=== PATIENT | female | born 1965 | race Caucasian/White ===

== ENCOUNTER 2023-01-25 10:20 | Outpatient (OUT) | payer BC, SELFPAY ==
[2023-01-25 10:42] LABS: Basophils Absolute Auto 0.1 10^3/uL (0.0-0.1); Basophils Percent Auto 0.9 % (0.2-2.0); Eosinophils Absolute Auto 0.1 10^3/uL (0.0-0.7); Eosinophils Percent Auto 2.4 % (0.9-7.0); Hematocrit 46.6 % (36.0-48.0); Hemoglobin 15.9 g/dL (12.0-16.0); Immature Granulocytes Abs Auto 0.01 10^3/uL (0.00-0.03); Immature Granulocytes Pct Auto 0.2 % (0.0-0.5); Lymphocytes Absolute Auto 2.3 10^3/uL (1.2-3.8); Lymphocytes Percent Auto 40.5 % (20.5-60.0); Mean Corpuscular HGB Conc 34.1 g/dL (29.9-35.2); Mean Corpuscular Hemoglobin 30.8 pg (26.7-34.0); Mean Corpuscular Volume 90.1 fL (81.0-99.0); Mean Platelet Volume 9.6 fL (9.5-13.5); Monocytes Absolute Auto 0.5 10^3/uL (0.3-0.8); Monocytes Percent Auto 8.3 % (1.7-12.0); Neutrophils Absolute Auto 2.8 10^3/uL (1.4-6.5); Neutrophils Percent Auto 47.7 % (43.0-75.0); Platelet Count 279 10^3/uL (150-450); Red Blood Count 5.17 10^6/uL (4.20-5.40); Red Cell Distribution Width 12.2 % (11.0-15.0); White Blood Count 5.8 10^3/uL (4.0-11.0)
[2023-01-25 11:22] LABS: Anion Gap 9.9; BUN Creatinine Ratio 12.3; Calcium 8.9 mg/dL (8.5-10.1); Chloride 104 mmol/L (98-107); Chol HDL Ratio 6.7; Cholesterol 253 mg/dL (<=200); Estimated GFR (African America >60 (>=60); Estimated GFR (Non-African Ame >60 (>=60); Glucose 102 mg/dL (74-106); HDL Cholesterol 38 mg/dL (40-60); Potassium 3.9 mmol/L (3.5-5.1); Sodium 141 mmol/L (136-145); Triglycerides 226 mg/dL (<=150); VLDL CHOLESTEROL 45.2 mg/dL
== END 2023-01-25 10:21 | disposition home or self-care (01) ==
PROVIDERS: PCP Family Medicine; Visit Provider Family Medicine
DX: Z00.00 Encounter for general adult medical examination without abnormal findings (principal); I10 Essential (primary) hypertension
CPT/HCPCS: 36415; 80048; 80061; 85025

== ENCOUNTER 2024-03-04 08:00 | Outpatient (OUT) | payer BC, SELFPAY ==
--- NOTE | 2024-03-04 07:40 | VEINCLINIC_ITS ---
Vital Signs 03/04/24 08:41 Height 5 ft 7 in Weight 86.183 kg BMI 29.8 BP 138/88 BP Location Left Brachial BP Position Supine BP Cuff Size Adult BP Source Manual Cuff Respiration 16 Pulse 56 L Pulse Source Monitor Pulse Oximetry (%) 94 L Oxygen Delivery Method Room Air Comment The patient's blood pressure is elevated. Varicose Veins Patient in this day for comprehensive evaluation for painful bilateral varicose veins. Patient reports numbness, pain and swelling for about 5 years. She stands 10 hours a day at work. She is active daily. She has worn compression stockings for 2 years. Ariel Webb MD personally performed the services described in this documentation, as scribed by Annia Olson RN in my presence and it is both accurate and complete. Annia Webb RN, am scribing for, and in the presence of, Dr. Ariel Mota and in the presence of the patient. thigh: bilateral, knee: bilateral, calf: bilateral, ankle: bilateral and mcfarland: bilateral aching, cramping, intermittent and tender 8 5 years Worsened in recent months: Yes standing and walking elevating extremities Reports fatigue, heaviness, limb pain and leg edema History of lower extremity trauma: No Superficial thrombophlebitis: No Family history of varicose veins: yes Has patient had previous lower extremity venous surgery: No Patient has previously received the following treatment(s) for lower extremity varicose veins: Reports none Does patient have a history of : no Does patient intend to have future pregnancies: no Has patient had lower extremity venous scan with relux testing: Yes Support hose used: Yes Problems walking or doing physical activity: Yes How does it affect you: Unable to walk long distances, effects work requirements standing Do you walk much: Yes Do you stand much: Yes Review of Systems ROS Narrative Ariel Webb MD personally performed the services described in this documentation, as scribed by Annia Olson RN in my presence and it is both accurate and complete. Annia Webb RN, am scribing for, and in the presence of, Dr. Ariel Mota and in the presence of the patient. Status of ROS 10 or more systems reviewed and unremark able except as noted in history and below Cardiovascular Reports: edema and swelling of feet/ankles Musculoskeletal Reports: extremity pain, extremity swelling, joint pain, joint swelling and muscle cramps Integumentary/Breast Reports: itching, skin pain, skin tenderness and skin swelling [facility] Medical History (Updated 03/04/24 @ 08:33 by Annia Olson, RN) FH: cholecystectomy ?Z83.79 - Family history of other diseases of the digestive system (ICD-10) Depression ?F32.A - Depression, unspecified (ICD-10) Hypercholesteremia ?E78.00 - Pure hypercholesterolemia, unspecified (ICD-10) Hypertension ?I10 - Essential (primary) hypertension (ICD-10) Pain due to varicose veins of both lower extremities ?I83.813 - Varicose veins of bilateral lower extremities with pain (ICD-10) Surgical History (Updated 03/04/24 @ 08:33 by Annia Olson, ANDERS) History of tonsillectomy ?Z90.89 - Acquired absence of other organs (ICD-10) History of appendectomy ?Z90.49 - Acquired absence of other specified parts of digestive tract (ICD- 10) Family History (Updated 03/04/24 @ 08:30 by Annia Olson, RN) Mother Family history of CHF (congestive heart failure) Family history of cancer Family history of hypertension Family history of myocardial infarction Family history of stroke Uncle Family history of CHF (congestive heart failure) Father Family history of cancer Family history of hypertension Sister Family history of diabetes mellitus Family history of hypertension Social History (Updated 03/04/24 @ 08:31 by Annia Olson, RN) Within the past year, how often did you have a drink containing alcohol: never Score interpretation: A score less than 3 is consistent with normal alcohol consumption. Smoking status: Never smoker Non-prescribed substance use: former substance user Meds Home Medications and Allergies Home Medications ?Medication ?Instructions ?Recorded ?Confirmed ?Type duloxetine 60 mg capsule,delayed 60 mg PO DAILY 03/04/24 03/04/24 History release (Cymbalta) gabapentin 600 mg tablet 600 mg PO TID 03/04/24 03/04/24 History multivit with min-folic 1 tab PO DAILY 03/04/24 03/04/24 History acid-lutein 400 mcg-250 mcg chewable tablet (Centrum Silver) nortriptyline 10 mg capsule 10 mg PO DAILY 03/04/24 03/04/24 History (Pamelor) rosuvastatin 20 mg tablet 20 mg PO DAILY 03/04/24 03/04/24 History Allergies Allergy/AdvReac Type Severity Reaction Status Date / Time No Known Drug Allergies Allergy Unverified 03/04/24 08:34 Exam Narrative Exam Narrative: Ariel Webb MD personally performed the services described in this documentation, as scribed by Annia Olson RN in my presence and it is both accurate and complete. IAnnia RN, am scribing for, and in the presence of, Dr. Ariel Mota and in the presence of the patient. Constitutional Documenting provider has reviewed patient's vital signs: yes Common normals: oriented x3 Nutritional appearance: overweight Lymph Lymphatic: no lymphedema noted Cardio Peripheral pulses: posterior tibial pulses present and dorsalis pedis pulses present Extremity General: calf tenderness, edema and other findings Right lower extremity: lower leg Right lower leg: inspection and palpation Left lower extremity: lower leg Left lower leg: inspection and palpation Neuro Common normals: oriented x3 Assessment and Plan Assessment and Plan (1) Pain due to varicose veins of both lower extremities: Plan Explained vein anatomy and physiology to patient. Explained the development of varicose veins to patient.? Explained varicose vein treatments to patient, including laser ablation, microfoam chemical ablation (Varithena), injection sclerotherapy and microphlebectomy.? Explained potential risks and benefits of varicose vein treatments.? Patient verbalizes understanding and wants to pursue varicose vein treatment.? Dr. Mota examines patient and reviews results of bilateral leg reflux u/s.? Patient and Dr. Mota creates a plan of care.? Patient also agrees to purchase bilateral thigh high compression stockings and wear them as educated.? Patient also educated on exercise and rest elevation of bilateral legs. Ariel Webb MD personally performed the services described in this documentation, as scribed by Annia Olson RN in my presence and it is both accurate and complete. Annia Webb RN, am scribing for, and in the presence of, Dr. Ariel Mota and in the presence of the patient.
--- NOTE | 2024-03-04 07:43 | W.VEIN ---
Discharge Plan Discharge Disposition: Home, Self-Care Outpatient Diagnostics: VC Endovenous Ablation 1VeinLT (Routine) Timeframe: 2 Months Facility: [facility] - Location: Vein Center Ordered By: Ariel Mota Follow Up Appointments: Will call patient to schedule when insurance approved. Print Language: Hebrew Discharge Date/Time: 03/04/24 09:45
--- NOTE | 2024-03-04 08:02 | VEIN_ITS ---
Patient Name: WILFRED CORBIN MR#: [id number] : 1965 Exam Date: 03/04/2024 Ordering Doctor: DR Shira Arias M.D. RADIOLOGY REPORT PROCEDURE: [facility] - OFFICE VISIT INITIAL COMPARISON: None. PROGRESS NOTES: [age] year old female who presents with a 5 year history of lower extremity pain, numbness, swelling, aching, cramping. The patient's left leg symptoms are worse than the right. There has been a progression of symptoms over time. This increases with prolonged leg dependency. The patient describes an improvement with rest, elevation and compression stockings. The patient denies any signs and symptoms to suggest arterial ischemia. The patient describes a family history of hypertension, cancer, diabetes. The patient has drinking and smoking history of : None. Patient has a past medical history significant for hypertension, varicose veins. The patient denies a history of deep venous thrombus or pulmonary embolus. See separate history and physical for medication list. No prior treatment for varicose or spider veins. Current use of compression stockings. After review of nurse notes, history and physical exam I discussed at length the pathophysiology of venous hypertension and possible treatments, therapies and strategies available. We discussed at length the importance of elevating the lower extremities above the level of the heart, increased physical activity and compression stocking use. Ultrasound venous reflux study performed today was discussed at length with the patient. The report demonstrates abnormally dilated incompetent great saphenous veins bilaterally with associated branch saphenous varicosities. PHYSICAL EXAM: The right leg demonstrates scattered varicosities, numerous spider veins, no ulceration, mild edema, no skin discoloration. The left leg demonstrates scattered varicosities, numerous spider veins, no ulceration, mild edema, no skin discoloration. Both thighs, legs and feet were symmetrically warm to the touch. Good posterior tibial and dorsalis pedis pulses were present bilaterally. VEIN/ Facility [facility] Comprehensive IMPRESSION: 1. Bilateral lower extremity venous insufficiency 2. Bilateral lower extremity varicose veins 3. Bilateral lower extremity subcutaneous edema 4. No flow significant arterial disease 5. CEAP: C3, AP, , [place] PLAN: 1. Continued use of compression stockings 2. Elevated legs and increased physical activity symptomatic relief 3. Endovenous laser ablation left great saphenous and right great saphenous veins. 4. Microfoam chemical ablation of bilateral incompetent branch saphenous varicosities. 5. Bilateral lower extremity sclerotherapy. Nurse notes, history and physical were reviewed and confirmed, see attached forms. The nurse was present throughout the physical exam and consultation Dictated by: Ariel Mota M.D. on 03/04/2024 at 15:29 Approved by: Ariel oMta M.D. on 03/04/2024 at 15:36
--- NOTE | 2024-03-04 08:03 | VEIN_ITS ---
Patient Name: WILFRED CORBIN MR#: [id number] : 1965 Exam Date: 03/04/2024 Ordering Doctor: DR Shira Arias M.D. RADIOLOGY REPORT PROCEDURE: VC EXT VENOUS REFLUX SHERRI LMTD COMPARISON: None. INDICATIONS: I83.813 Bilateral painful varicose veins TECHNIQUE: Duplex imaging of the lower extremity to assess the deep and superficial venous system for the presence of deep or superficial venous incompetence and to document the location and severity of disease. The study includes evaluation of the great saphenous vein (GSV), anterior accessory saphenous vein (AASV) and small saphenous vein (SSV). Patient scanned in reverse Trendelenburg and standing. FINDINGS: RIGHT LOWER EXTREMITY: Saphenofemoral Junction Reflux: Yes 7.2mm 1.5 sec GSV: Diam (mm) Reflux/ Time (sec) Proximal Thigh 6.2 Yes 1.3 Mid Thigh 4.6 Yes 2.4 Distal Thigh 4.0 Yes 3.7 Prox Calf 3.1 No Mid Calf 2.6 No Saphenopopliteal Junction Reflux: 2.3mm No SSV: Proximal Calf 1.6 No Mid Calf 2.1 No AASV: Not present Proximal Thigh Mid Thigh Distal Thigh Thrombi: No acute or chronic thrombus visualized Compressibility: Normal Flow: Normal Preforator: Dist/med calf 1.7mm with 0s reflux. Tech Note: Incompetent GSV. GSV is extrafascial from dist/med thigh to prox/calf. Patent varicose vein mid/med thigh 3.0mm with 3.4s reflux. Patent varicose mid/med thigh 2.0mm with 0s reflux. Patent varicose vein 3.5mm with 3.7s reflux. LEFT LOWER EXTREMITY: Saphenofemoral Junction Reflux: Yes 8.5 mm 2.7 sec GSV: Diam (mm) Reflux/Time (sec) Proximal Thigh 9.2 Yes 3.0 Mid Thigh 6.1 Yes 3.0 Distal Thigh 7.2 Yes 3.5 Prox Calf 3.4 Yes 3.2 Mid Calf 2.0 No Saphenopopliteal Junction Relux: 1.7 mm No SSV: Proximal Calf 1.5 No Mid Calf 1.2 No AASV: Not present Proximal Thigh Mid Thigh Distal Thigh Thrombi: No acute or chronic thrombus visualized Compressibility: Normal Flow: Normal Route Manager: Dist/med calf 2.7mm with 0s reflux. Tech Note: Incompetent GSV. GSV is extrafascial from dist/med thigh to prox/med calf. Patent varicose vein mid/med thigh 5.0mm with 3.5s reflux. Patent varicose vein 5.4mm with 3.5s reflux. Patent varicose vein 4.0mm with 3.6s reflux. CONCLUSION: 1. Abnormally dilated and incompetent great saphenous veins bilaterally with associated branch saphenous varicosities. Dictated by: Ariel Mota M.D. on 03/04/2024 at 09:33 Approved by: Ariel Mota M.D. on 03/04/2024 at 09:49
[2024-03-04 08:41] VITALS: BP 138/88; PULSE 56; O2SAT 94; BMI 29.8
== END 2024-03-04 09:45 | disposition home or self-care (01) ==
LOC: VC 08:01
PROVIDERS: PCP Family Medicine; Visit Provider Family Medicine
DX: I83.813 Varicose veins of bilateral lower extremities with pain (principal)
CPT/HCPCS: 93970; G0463

== ENCOUNTER 2024-03-19 07:55 | Outpatient (OUT) | payer BC, SELFPAY ==
--- NOTE | 2024-03-18 09:45 | VEINCLINIC_ITS ---
Vital Signs 03/19/24 08:35 BP 122/60 BP Location Left Brachial BP Position Sitting BP Cuff Size Adult BP Source Manual Cuff Respiration 16 Pulse 65 Pulse Source Monitor Pulse Oximetry (%) 98 Oxygen Delivery Method Room Air Comment The patient's blood pressure is elevated. Varicose Veins Patient in this day for EVLT of left GSV Ariel Webb MD personally performed the services described in this documentation, as scribed by Ricki Horowitz RN in my presence and it is both accurate and complete. Ricki Webb RN, am scribing for, and in the presence of, Dr. Ariel Mota and in the presence of the patient. thigh: bilateral, knee: bilateral, calf: bilateral, ankle: bilateral and mcfarland: bilateral aching, cramping, intermittent and tender 8 5 years Worsened in recent months: Yes standing and walking elevating extremities Reports fatigue, heaviness, limb pain and leg edema History of lower extremity trauma: No Superficial thrombophlebitis: No Family history of varicose veins: yes Has patient had previous lower extremity venous surgery: No Patient has previously received the following treatment(s) for lower extremity varicose veins: Reports none Does patient have a history of : no Does patient intend to have future pregnancies: no Has patient had lower extremity venous scan with relux testing: Yes Support hose used: Yes Problems walking or doing physical activity: Yes How does it affect you: Unable to walk long distances, effects work requirements standing Do you walk much: Yes Do you stand much: Yes Review of Systems ROS Narrative Ariel Webb MD personally performed the services described in this documentation, as scribed by Ricki Horowitz RN in my presence and it is both accurate and complete. Ricki Webb RN, am scribing for, and in the presence of, Dr. Ariel Mota and in the presence of the patient. Status of ROS 10 or more systems reviewed and unremark able except as noted in history and below Cardiovascular Reports: edema and swelling of feet/ankles Musculoskeletal Reports: extremity pain, extremity swelling, joint pain, joint swelling and muscle cramps Integumentary/Breast Reports: itching, skin pain, skin tenderness and skin swelling [facility] Medical History (Updated 03/04/24 @ 08:33 by Annia Olson RN) FH: cholecystectomy ?Z83.79 - Family history of other diseases of the digestive system (ICD-10) Depression ?F32.A - Depression, unspecified (ICD-10) Hypercholesteremia ?E78.00 - Pure hypercholesterolemia, unspecified (ICD-10) Hypertension ?I10 - Essential (primary) hypertension (ICD-10) Pain due to varicose veins of both lower extremities ?I83.813 - Varicose veins of bilateral lower extremities with pain (ICD-10) Surgical History (Updated 03/19/24 @ 09:33 by Ricki Horowitz) Status post laser ablation of incompetent vein ?Z98.890 - Other specified postprocedural states (ICD-10) History of tonsillectomy ?Z90.89 - Acquired absence of other organs (ICD-10) History of appendectomy ?Z90.49 - Acquired absence of other specified parts of digestive tract (ICD- 10) Family History (Updated 03/04/24 @ 08:30 by Annia Olson, ANDERS) Mother Family history of CHF (congestive heart failure) Family history of cancer Family history of hypertension Family history of myocardial infarction Family history of stroke Uncle Family history of CHF (congestive heart failure) Father Family history of cancer Family history of hypertension Sister Family history of diabetes mellitus Family history of hypertension Social History (Updated 03/04/24 @ 08:31 by Annia Olson, ANDERS) Within the past year, how often did you have a drink containing alcohol: never Score interpretation: A score less than 3 is consistent with normal alcohol consumption. Smoking status: Never smoker Non-prescribed substance use: former substance user Meds Home Medications and Allergies Home Medications ?Medication ?Instructions ?Recorded ?Confirmed ?Type duloxetine 60 mg capsule,delayed 60 mg PO DAILY 03/04/24 03/04/24 History release (Cymbalta) gabapentin 600 mg tablet 600 mg PO TID 03/04/24 03/04/24 History multivit with min-folic 1 tab PO DAILY 03/04/24 03/04/24 History acid-lutein 400 mcg-250 mcg chewable tablet (Centrum Silver) nortriptyline 10 mg capsule 10 mg PO DAILY 03/04/24 03/04/24 History (Pamelor) rosuvastatin 20 mg tablet 20 mg PO DAILY 03/04/24 03/04/24 History Allergies Allergy/AdvReac Type Severity Reaction Status Date / Time No Known Drug Allergies Allergy Unverified 03/04/24 08:34 Exam Narrative Exam Narrative: Ariel Webb MD personally performed the services described in this documentation, as scribed by Ricki Horowitz RN in my presence and it is both accurate and complete. Ricki Webb RN, am scribing for, and in the presence of, Dr. Ariel Mota and in the presence of the patient. Constitutional Documenting provider has reviewed patient's vital signs: yes Common normals: oriented x3 Nutritional appearance: overweight Lymph Lymphatic: no lymphedema noted Cardio Peripheral pulses: posterior tibial pulses present and dorsalis pedis pulses present Extremity General: calf tenderness, edema and other findings Right lower extremity: lower leg Right lower leg: inspection and palpation Left lower extremity: lower leg Left lower leg: inspection and palpation Neuro Common normals: oriented x3 Assessment and Plan Assessment and Plan (1) Pain due to varicose veins of both lower extremities: Plan f/u evaluation with physician along with left leg limited u/s Ariel Webb MD personally performed the services described in this documentation, as scribed by Ricki Horowitz RN in my presence and it is both accurate and complete. Ricki Webb RN, am scribing for, and in the presence of, Dr. Ariel Mota and in the presence of the patient. Procedures Procedure Instructions Procedures Plan of care: Risks and benefits of the procedure were discussed at length and informed written consent was obtained.? Time-out completed for verification of correct patient, procedure and site.? Staff present during time-out: Ricki Horowitz RN,? Ariel Mota MD, Desi Rees [facility]. Time Out Time__0840 Patient prepped and procedure performed in usual sterile fashion. Risk of injury related to use of Diode laser and/or laser devices? __CR___ ? Serial number of laser used :? [id number] Control panel self test performed, electrical cords in good condition, floor is dry, basin of water available, fire extinguisher in close proximity_CR__ Polycarbonate goggles available and Laser warning signs outside of doors___CR__ Eye protection provided to patient and staff in room_CR___ Use of laser retardant drapes and dull blackened instruments as directed__CR___ Use of nonflammable prep solutions and use of saline soaked sponges to protect tissues as indicated _CR___ Length ___16 cm Laser operated by _Dr. Mota Physician verbal confirmation laser locked in place__CR__ Laser start time (date and time) __03/19/2024@_0852 Laser stop time(date and time) __03/19/2024@_0855 Miranda _8.0___ Average laser use ___993____Joules Average laser use___124 seconds Pulse continuous ___CR_? Pulse intermittent ___ Amount of Tumescent used _150cc Evaluated patient for signs and symptoms of electrical injury __CR___ ? Skin clear at insertion site __CR___ Patient tolerated procedure well.? Left leg Coban dressing applied to access site.? Applied Left thigh high leg compression stocking. Will return on 03/26/2024 for Left leg limited venous ultrasound and exam. IAriel MD personally performed the services described in this documentation, as scribed by Ricki Horowitz RN in my presence and it is both accurate and complete. I, Ricki Horowitz RN, am scribing for, and in the presence of, Dr. Ariel Mota and in the presence of the patient.
--- NOTE | 2024-03-18 09:52 | P.DS_ITS ---
Discharge Plan Discharge Disposition: Home, Self-Care Outpatient Diagnostics: VC Facility EST LMTD (Routine) Timeframe: 2 Weeks Facility: [facility] - Location: Vein Center Ordered By: Ariel Mota VC EXT Venous LT Limited (Routine) Timeframe: 2 Weeks Facility: [facility] - Location: Vein Center Ordered By: Ariel Mota Follow Up Appointments: 03/26/2024 Plan of Treatment: f/u evaluation with physician along with left leg limited u/s Patient Instructions: Endovenous Ablation (DC) Print Language: Scottish Discharge Date/Time: 03/19/24 09:40
[2024-03-19] MEDS: LIDOCAINE HCL 1% 100 MG/10 ML MDV INJ (07:55)
[2024-03-19] MEDS: 0.9 % SODIUM CHLORIDE 500 ML, LIDOCAINE HCL 20 ML, SODIUM BICARBONATE 10 MEQ INJ (07:55)
--- NOTE | 2024-03-19 07:57 | VEIN_ITS ---
[address] [address] Patient Name: WILFRED CORBIN MRN: [id number] date: 1965 Sex: F Assigned Patient Location: Current Patient Location: Accession/Order Number: [id number] Exam Date: 03/19/2024 08:00 Report Date: 03/19/2024 10:19 At the request of: SHIVA ASH Procedure: VC Endovenous Ablation 1VeinLT EXAMINATION: VC Endovenous Ablation 1VeinLT HISTORY: I83.813 - Varicose veins of bilateral lower extremities w... The risks and benefits of the procedure had been previously discussed, and were rediscussed at length. Informed written consent was obtained. Ricki Horowitz RN and Desi Norman RDMS assisted. Time out procedure was performed. The left lower extremity was prepared and draped in the usual sterile fashion to allow knee flexion in the sterile field. Duplex ultrasound probe was draped in a sterile cover, sterile transmission gel was used. Venous mapping was performed with the areas of dilation and large tributaries marked. The total length was 16 cm from the entry mid-upper thigh to 3 cm below the Saphenofemoral junction. The diameter of the left great saphenous vein ranged from 9.2 mm. A 30 gauge needle and 1% buffered lidocaine was used to anesthetize the entry site. A 4 mm incision was made with a scalpel and the saphenous vein was entered percutaneously under direct ultrasound guidance with a micropuncture set, a single stick was successful in gaining access. A micro-guide wire was inserted and the needle removed. A micro-set including a dilator was inserted over the microwire and the needle and dilator were removed. A guide wire was inserted through the micro-set and guided through the saphenous vein to the saphenofemoral junction. The dilator was removed and an introducer sheath was inserted over the wire until the end of the sheath entered the saphenofemoral junction. The dilator and wire were removed and the 600 micron fiber was introduced and placed and positioned so that it extended beyond the sheath and was 3 cm distal to the saphenofemoral or saphenopopliteal junction. Final position of the fiber was determined by ultrasound guidance and duplex imaging. Tumescent anesthetic was delivered by ultrasound guidance. 150 cc of fluid was delivered along the entire course of the saphenous vein. The solution consisted of 1000 cc of normal saline with 40 mL of 1% lidocaine and 20 mL of sodium bicarbonate. A final positioning check was made. The energy source was turned on by means of the foot pedal and the fiber and sheath were withdrawn. The total number of Joules delivered was 993. The laser was active for 124 seconds under continuous pulse, average laser use of 8 J. Laser start time: 8:52 AM Laser stop time: 8:55 AM Date: 03/19/2024. A duplex ultrasound revealed compressibility and flow at the saphenofemoral junction immediately after the procedure. Hemostasis at the access site was achieved. The skin incision of the saphenous vein was closed with a 4 x 4. A compression stocking was applied. Postop instructions were given. A follow up appointment was recommended and scheduled. The patient tolerated the procedure well. Electronically authenticated by: SHIVA ASH Date: 03/19/2024 10:19
--- OUTSIDE RECORDS SUMMARY | 2024-03-19 07:58 | XMS_ITS | CCD ---
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 Name Role Phone Juan Miguel Campbell Unavailable Unavailable NONE, XXXX Unavailable Unavailable Juan Miguel Campbell Unavailable Unavailable NONE, XXXX Unavailable Unavailable MD Shira aSdler Primary Care Provider MD John Nath Attending Provider [phone] John Nath Unavailable Shira Sadler Unavailable DR SHIRA SADLER Admitting Unavailable VIKTORIYA, DR SHIRA Gonzalez Attending Unavailable DR SHIRA SADLER Primary Care Unavailable NILSA, DR ARIEL Dyer Consulting Unavailable DR SHIRA SADLER Consulting Unavailable MD Shira Sadler Primary Care Provider MD Travis Sadler Attending Provider [phone] MD Shira Sadler Primary Care Provider GABBY Reyez-GRAIN OPERATOR-Ophelia Gonzalez Attending Provider Rigo Chance Unavailable MD Shira Sadler Primary Care Provider MD Rigo Chance Attending Provider MD Shira Sadler Primary Care Provider MD Rigo Chance Attending Provider MD Marcos Weinberg Attending Provider MD Shira Sadler Primary Care Provider MD Travis Sadler Attending Provider MARIANNA TORRES Attending Unavailable TRAVIS SADLRE Referring Unavailable MD Shira Sadler Primary Care Provider GABBY Knox Attending Provider Travis Sadler Admitting Unavailable Travis Sadler Attending Unavailable Shira Sadler Primary Care Unavailable Ester Knox Admitting Unavailable Ester Knox Attending Unavailable Shira Sadler Primary Care Unavailable Gale Reyez Admitting Unavailable Gale Reyez Attending Unavailable Shira Sadler Primary Care Unavailable Rigo Chance Admitting Unavailable Rigo Chance Attending Unavailable Shira Sadler Primary Care Unavailable Marcos Weinberg Admitting Unavailable Marcos Weinberg Attending Unavailable Shira Sadler Primary Care Unavailable MD Shira Sadler Primary Care Provider Allergies Allergy Classification Reported Allergen(s) Allergy Type Date of Onset Reaction(s) Facility (4 sources) patient allergy list reviewed by nurse or physicia Propensity to adverse reactions 7 Comment:Done [facility] Other (4 sources) Allergies Reconciled Propensity to adverse reactions Unknown [facility] Other Medications Current Medications Medication Drug Class(es) Dates Sig (Normalized) Sig (Original) Ashwagandha (14 sources) Start: 06-19-2019 take 600 mg by mouth once daily Ashwagandha Active 600 MG PO Daily June 19, 2019 9:17am Start: 06-19-2019 End: 08-13-2023 take 600 mg by mouth once daily Ashwagandha Discontinued 600 MG PO Daily June 19, 2019 1:00am August 13, 2023 11:35am Start: 06-19-2019 End: 08-13-2023 take 600 mg by mouth once daily Ashwagandha Discontinued 600 MG PO Daily June 19, 2019 12:00am August 13, 2023 10:35am Start: 06-19-2019 take 600 mg by mouth once daily Ashwagandha Active 600 MG PO Daily June 19, 2019 12:00am Start: 06-19-2019 take 600 mg by mouth once daily Ashwagandha Active 600 MG PO Daily June 19, 2019 1:00am Ashwagandha 500 MG (7 sources) take 1 capsule by mouth once daily Ashwagandha 500 MG 1 capsule orally daily Active Cbd Oil (14 sources) Start: 06-19-2019 take 3000 mg by mouth once daily Cbd Oil Active 3000 MG PO Daily June 19, 2019 9:17am Start: 06-19-2019 End: 08-13-2023 take 3000 mg by mouth once daily Cbd Oil Discontinued 3000 MG PO Daily June 19, 2019 1:00am August 13, 2023 11:35am Start: 06-19-2019 End: 08-13-2023 take 3000 mg by mouth once daily Cbd Oil Discontinued 3000 MG PO Daily June 19, 2019 12:00am August 13, 2023 10:35am Start: 06-19-2019 take 3000 mg by mout h once daily Cbd Oil Active 3000 MG PO Daily June 19, 2019 12:00am Start: 06-19-2019 take 3000 mg by mout h once daily Cbd Oil Active 3000 MG PO Daily June 19, 2019 1:00am Centrum Silver - (8 sources) Centrum Silver - as directed Orally daily Active docusate sodium 100 mg oral capsule (5 sources) take 1 capsule by mouth once daily Docusate Sodium 100 mg TAKE 1 CAPSULE BY MOUTH DAILY for 30 Active DULoxetine (20 sources) Serotonin and Norepinephrine Reuptake Inhibitor Start: Duloxetine Active 0 .ROUTE .COMPLEX 90 October 03, 2023 10:20am TAKE 1 CAPSULE DAILY Start: 10-02-2023 End: 10-03-2023 take 60 mg by mouth once daily Duloxetine Discontinued 60 MG PO Daily October 02, 2023 12:00am October 03, 2023 10:20am Start: 08-13-2023 End: 09-26-2023 take 60 mg by mouth once daily Duloxetine Discontinued 60 MG PO Daily August 13, 2023 1:00am September 26, 2023 11:00am take 1 capsule by mo uth once daily DULoxetine HCl 60 mg TAKE 1 CAPSULE BY MOUTH DAILY Active enalapril maleate 5 mg oral tablet (20 sources) Angiotensin Converting Enzyme Inhibitor Start: 06-19-2019 take 1 tablet by mouth once daily Enalapril Maleate (Vasotec) 5 mg Tablet Active 5 MG PO Daily June 19, 2019 1:00am Fiber (6 sources) Start: 12-11-2023 fiber Active P O December 11, 2023 12:00am gabapentin 600 mg oral tablet (20 sources) Anti-epileptic Agent Start: 08-13-2023 take 600 mg by mouth three times daily Gabapentin Active 600 MG PO Three times daily August 13, 2023 1:00am Start: 07-24-2019 End: 08-13-2023 take 100 mg by mouth once daily Gabapentin Discontinue d 100 MG PO Daily July 24, 2019 1:00am August 13, 2023 11:37am [facility] daily Gabapentin 300 MG TAKE 1 CAPSULE BY MOUTH THREE TIMES DAILY Oral for 30 Active hydroCHLOROthiazide 25 mg / triamterene 37.5 mg oral tablet (7 sources) Potassium-sparing Diuretic, Thiazide Diuretic take 1 tablet by mouth every twenty-four hours Maxzide-25 37.5-25 MG 1 tablet in the morning Orally Once a day Active L-Thearnine (14 sources) Start: 2018 take 200 mg by mouth once daily L-Thearnine Active 200 MG PO Daily June 19, 2019 9:17am Start: 06-19-2019 End: 09-26-2023 take 200 mg by mouth once daily L-Thearnine Discontinued 200 MG PO Daily June 19, 2019 1:00am September 26, 2023 10:58am Start: 06-19-2019 take 200 mg by mouth once daily L-Thearnine Active 200 MG PO Daily June 19, 2019 12:00am Start: 06-19-2019 take 200 mg by mouth once daily L-Thearnine Active 200 MG PO Daily June 19, 2019 1:00am L-Threonine 200mg (7 sources) take 200 mg by mouth once daily L-Threonine 200mg as directed Orally daily *please review for potential _update for e-prescription and drug interaction check* Active linaclotide 0.29 mg oral capsule (6 sources) Guanylate Cyclase-C Agonist Start: take 1 capsule by mouth once daily in the morning Linaclotide (Linzess) 290 mcg capsule Active 290 MCG PO Every morning December 11, 2023 12:00am Take 1 capsule orally every morning. Metoprolol (20 sources) beta-Adrenergic Robert Start: Metoprolol Succinate Active 0 .ROUTE .COMPLEX 90 October 03, 2023 10:20am TAKE 1 TABLET DAILY Start: 10-02-2023 End: 10-03-2023 take 50 mg by mouth once daily Metoprolol Succinate Di scontinued 50 MG PO Daily October 02, 2023 12:00am October 03, 2023 10:20am take 1 tablet by karis th once daily Metoprolol Succinate ER 50 mg TAKE 1 TABLET BY MOUTH DAILY for 90 Active montelukast 10 mg oral tablet (16 sources) Leukotriene Receptor Antagonist Start: 09-26-2023 End: 02-11-2024 take 1 tablet by mouth once daily at bedtime Montelukast Active 10 MG PO Daily at bedtime February 11, 2024 2:41pm FreeTextSig: TAKE 1 TABLET BY MOUTH AT BEDTIME; Note: Source Status: Taking; Refills: 1; Qty: 90 Tablet; Provider: Viktoriya Silva ( ) take 1 tablet by mouth at bedtim e Montelukast Sodium 10 mg TAKE 1 TABLET BY MOUTH AT BEDTIME for 90 Active Jp-Alu-Gbxqe Acid-Lutein (Centrum Silver) 400-250 mcg Tablet,Chewable (14 sources) Start: 06-19-2019 take 1 tablet by mouth once daily Jv-Zry-Iftxi Acid-Lutein (Centrum Silver) 400-250 mcg Tablet,Chewable Active 1 TAB PO Daily June 19, 2019 9:17am Start: 06-19-2019 take 1 tablet by karis th once daily Ek-Yuq-Rvoqm Acid-Lutein (Centrum Silver) 400-250 mcg Tablet,Chewable Active 1 TAB PO Daily June 19, 2019 12:00am Start: 06-19-2019 take 1 tablet by karis th once daily Cm-Pwj-Dvzdq Acid-Lutein (Centrum Silver) 400-250 mcg Tablet,Chewable Active 1 TAB PO Daily June 19, 2019 1:00am nortriptyline 10 mg oral capsule (20 sources) Tricyclic Antidepressant Start: 10-03-2023 Nortriptyline Active 0 .ROUTE .COMPLEX October 03, 2023 10:20am TAKE 1 CAPSULE DAILY Start: 10-02-2023 End: 10-03-2023 take 10 mg by mouth once daily Nortriptyline Discontin ued 10 MG PO Daily October 02, 2023 12:00am October 03, 2023 10:20am Start: 03-02-2023 take 1 capsule by [facility]-four hours Nortriptyline HCl 10 MG 1 capsule Orally Once a day for 90 days Feb, Active [place] 3 1000 MG (7 sources) take 1 capsule by mouth once daily [place] 3 1000 MG 1 capsule Orally Once a day Active [place] 5-Wkr-Lfl-Fish Oil (Fish Oil) 360-1,200 mg Capsule,Delayed Release(Dr/Ec) (14 sources) Start: 06-19-2019 take 360-1200 mg by mouth once daily [place] 7-Qpl-Diz-Fish Oil (Fish Oil) 360-1,200 mg Capsule,Delayed Release(Dr/Ec) Active 1 CAP PO Daily June 19, 2019 9:17am Start: 06-19-2019 End: 08-13-2023 take 360-1200 mg by mouth once daily [place] 5-Qht-Ige-Fish Oil (Fish Oil) 360-1,200 mg Capsule,Delayed Release(Dr/Ec) Discontinued 1 CAP PO Daily June 19, 2019 1:00am August 13, 2023 11:36am Start: 06-19-2019 End: 08-13-2023 take 360-1200 mg by mouth once daily [place] 3-Taa-Viv-Fish Oil (Fish Oil) 360-1,200 mg Capsule,Delayed Release(Dr/Ec) Discontinued 1 CAP PO Daily June 19, 2019 12:00am August 13, 2023 10:36am Start: 06-19-2019 take 360-1200 mg by mouth once daily [place] 7-Wgd-Odc-Fish Oil (Fish Oil) 360-1,200 mg Capsule,Delayed Release(Dr/Ec) Active 1 CAP PO Daily June 19, 2019 12:00am Start: 06-19-2019 take 360-1200 mg by mouth once daily [place] 2-Qzj-Emg-Fish Oil (Fish Oil) 360-1,200 mg Capsule,Delayed Release(Dr/Ec) Active 1 CAP PO Daily June 19, 2019 1:00am rosuvastatin calcium 20 mg oral tablet (20 sources) HMG-CoA Reductase Inhibitor Start: 10-03-2023 Rosuvastatin Active 0 .ROUTE .COMPLEX 90 October 03, 2023 10:19am TAKE 1 TABLET DAILY Start: 09-26-2023 End: 10-03-2023 take 1 tablet by mouth once daily Rosuvastatin Discontinued 1 TAB PO Daily September 26, 2023 12:00am October 03, 2023 10:20am FreeTextSi tablet Orally Once a day; Note: Source Status: Taking; Refills: 1; Qty: 90 Tablet; Provider: Viktoriya Gonzalez take 1 tablet by karis th every twenty-four hours Rosuvastatin Calcium 20 MG 1 tablet Orally Once a day for [address] [place] Wort 300 MG (7 sources) take 2 tablets by mo uth once daily [place] Wort 300 MG 2 tablets Orally Once a day Active Casmalia's Wort (14 sources) Start: 06-19-2019 take 600 mg by mouth once daily Joselyn's Wort Active 600 MG PO Daily June 19, 2019 9:17am Start: 06-19-2019 End: 08-13-2023 take 600 mg by mouth once daily Casmalia's Wort Discontinued 600 MG PO Daily June 19, 2019 1:00am August 13, 2023 11:36am Start: 06-19-2019 End: 08-13-2023 take 600 mg by mouth once daily Casmalia's Wort Discontinued 600 MG PO Daily June 19, 2019 12:00am August 13, 2023 10:36am Start: 06-19-2019 take 600 mg by mouth once daily Casmalia's Wort Active 600 MG PO Daily June 19, 2019 12:00am Start: 06-19-2019 take 600 mg by mouth once daily Joselyn's Wort Active 600 MG PO Daily June 19, 2019 1:00am SUMAtriptan 50 mg oral tablet (1 source) Serotonin-1b and Serotonin-1d Receptor Agonist Start: 02-11-2024 take 4 tablets by mouth every twenty-four hours Sumatriptan Succinate (Imitrex) 50 mg tablet Active 50 MG PO EVERY 2-4 HOURS February 11, 2024 12:00am do not exceed 4 doses per 24 hrs turmeric extract 500 mg oral capsule (20 sources) Start: 06-19-2019 take 500 mg by mouth once daily Turmeric Active 500 MG PO Daily June 19, 2019 9:17am Start: 06-19-2019 End: 08-13-2023 take 500 mg by mouth once daily Turmeric Discontinued 500 MG PO Daily June 19, 2019 1:00am August 13, 2023 11:36am Start: 06-19-2019 End: 02-19-2024 take 500 mg by mouth once daily Turmeric Discontinued 500 MG PO Daily June 19, 2019 12:00am August 13, 2023 10:36am Start: 06-19-2019 take 500 mg by mouth once daily Turmeric Active 500 MG PO Daily June 19, 2019 12:00am Start: 06-19-2019 take 500 mg by mouth once daily Turmeric Active 500 MG PO Daily June 19, 2019 1:00am take 500 mg by mouth once daily Turmeric 500 MG as directed Orally daily Active veozah 45 mg tablet (1 source) Start: 07-12-2023 take 1 tablet by karis th every twenty-four hours Veozah 45 MG 1 tablet Orally Once a day for 30 day(s) Jun, Active Completed/Discontinued Medications Medication Drug Class(es) Dates Sig (Normalized) Sig (Original) calcium carbonate 1500 mg oral tablet (20 sources) Start: 06-19-2019 End: 08-13-2023 Calcium Carbonate (Calcium 600) 600 mg calcium (1,500 mg) Tablet Discontinued 1200 MG PO Daily June 19, 2019 1:00am August 13, 2023 11:35am take 1 tablet by mouth every twe lve hours Calcium 600 MG 1 tablet with meals Orally Twice a day Active take 1 tablet by mouth every twe lve hours Calcium 600 MG 1 tablet with meals Orally Twice a day Active loratadine 10 mg oral tablet (14 sources) Start: 06-19-2019 End: 02-07-2024 take 1 tablet by mouth once daily Loratadine (Claritin) 10 mg Tablet Discontinued 10 MG PO Daily June 19, 2019 1:00am February 07, 2024 9:43am Plecanatide (Trulance) 3 mg tablet (16 sources) Start: 11-27-2023 End: 02-07-2024 take 1 tablet by mouth once daily Plecanatide (Trulance) 3 mg tablet Discontinued 3 MG PO Daily 90 November 27, 2023 2:38pm February 07, 2024 9:44am Start: 11-27-2023 take 1 tablet by karis th once daily Plecanatide (Trulance) 3 mg tablet Active 3 MG PO Daily 90 November 27, 2023 2:38pm Start: 09-26-2023 End: 11-27-2023 take 1 tablet by mouth once daily Plecanatide (Trulance) 3 mg tablet Discontinued 3 MG PO Daily September 26, 2023 12:00am November 27, 2023 2:39pm Start: 09-26-2023 take 1 tablet by karis th once daily Plecanatide (Trulance) 3 mg tablet Active 3 MG PO Daily 90 September 26, 2023 12:00am probiotic (6 sources) Start: 12-11-2023 End: 02-07-2024 probiotic Discontinued PO Ju 2023 12:00am February 07, 2024 9:44am Start: 12-11-2023 probiotic Acti ve PO December 11, 2023 12:00am venlafaxine (20 sources) Serotonin and Norepinephrine Reuptake Inhibitor Start: 10-03-2023 End: 02-07-2024 Venlafaxine Discontinued 0 .ROUTE .COMPLEX October 03, 2023 10:19am February 07, 2024 9:44am TAKE 1 CAPSULE DAILY Start: 10-03-2023 Venlafaxine Ac tive 0 .ROUTE .COMPLEX October 03, 2023 10:19am TAKE 1 CAPSULE DAILY Start: 09-26-2023 End: 10-03-2023 take 1 capsule by mouth once daily Venlafaxine Discontinued 75 MG PO Daily September 26, 2023 12:00am October 03, 2023 10:20am FreeTextSig: TAKE 1 CAPSULE BY MOUTH DAILY; Note: Source Status: Taking; Refills: 1; Qty: 90 Capsule; Provider: Viktoriya Gonzalez take 1 capsule by mo ut once daily Venlafaxine HCl ER 37.5 mg TAKE 1 CAPSULE BY MOUTH DAILY for 30 Active Problems Active Problems Problem Classification Problem Date Documented Da te Episodic/Chronic Abdominal pain (10 sources) Epigastric pain; Translations: [Epigastric pain] Onset: 07-06-2016 02-07-2024 Episodic Adjustment disorders (4 sources) Adjustment disorder with depressed mood; Translations: [Adjustment disorder with depressed mood] Onset: 07-06-2017 Chronic Anxiety disorders (10 sources) Anxiety disorder; Translations: [Other specified anxiety disorders] Chronic Esophageal disorders (4 sources) Esophageal reflux finding; Translations: [Esophageal reflux] Onset: 05-16-2013 Chronic Essential hypertension (6 sources) Essential hypertension; Translations: [Essential (primary) hypertension] Chronic Fever of unknown origin (4 sources) Fever; Translations: [Fever, unspecified] Episodic Headache; including migraine (6 sources) Migraine with aura; Translations: [Migraine with aura, not intractable, without status migrainosus] Chronic Headache; including migraine (20 sources) Headache; Translations: [Headache] 06-19-2019 Episodic Hemorrhoids (16 sources) Hemorrhoids; Translations: [Unspecified hemorrhoids] 09-26-2023 Episodic Immunizations and screening for infectious disease (8 sources) Contact with and (suspected) exposure to other viral communicable diseases; Translations: [Exposure to communicable disease] Onset: 01-04-2015 Episodic Menopausal disorders (5 sources) Menopause present; Translations: [Menopausal and female climacteric states] Chronic Menstrual disorders (4 sources) Dysmenorrhea; Translations: [Dysmenorrhea, unspecified] Chronic Mood disorders (4 sources) Dysthymia; Translations: [Dysthymic disorder] Onset: 04-05-2018 Chronic Neoplasms of unspecified nature or uncertain behavior (6 sources) Neoplasm of uncertain behavior of meninges, unspecified; Translations: [Neoplasm of uncertain behavior of meninges] Onset: 11-16-2021 Resolved: 12-05-2021 Episodic Other and unspecified benign neoplasm (5 sources) Benign neoplasm of cerebral meninges; Translations: [Benign neoplasm of meninges, unspecified] Chronic Other and unspecified benign neoplasm (8 sources) Benign neoplasm of meninges, unspecified; Translations: [Benign neoplasm of cerebral meninges] Onset: 11-12-2023 Chronic Other and unspecified benign neoplasm (7 sources) Neoplasm of meninges; Translations: [Benign neoplasm of meninges, unspecified] 11-13-2023 Chronic Other connective tissue disease (6 sources) Fibromyalgia; Translations: [Fibromyalgia] 02-12-2024 Episodic Other connective tissue disease (2 sources) Fibromyalgia; Translations: [Myalgia and myositis, unspecified] Episodic Other ear and sense organ disorders (8 sources) Sensorineural hearing loss, bilateral; Translations: [Sensorineural hearing loss, bilateral] Chronic Other ear and sense organ disorders (8 sources) Hearing loss in left ear; Translations: [Unspecified hearing loss, left ear] Chronic Other ear and sense organ disorders (4 sources) Hearing loss; Translations: [Unspecified hearing loss] Onset: 02-20-2019 Chronic Other ear and sense organ disorders (8 sources) Tinnitus of left ear; Translations: [Tinnitus, left ear] Episodic Other ear and sense organ disorders (8 sources) Sudden hearing loss; Translations: [Sudden idiopathic hearing loss, left ear] Episodic Other gastrointestinal disorders (9 sources) Irritable bowel syndrome characterized by constipation; Translations: [Irritable bowel syndrome with constipation] 09-26-2023 Chronic Other gastrointestinal disorders (14 sources) Irritable bowel syndrome with constipation; Translations: [Irritable bowel syndrome] 09-26-2023 Chronic Other gastrointestinal disorders (14 sources) Constipation; Translations: [Other constipation] 09-26-2023 Episodic Other gastrointestinal disorders (6 sources) Constipation, unspecified; Translations: [Constipation, unspecified] 09-26-2023 Episodic Other nervous system disorders (12 sources) Demyelinating disease of central nervous system; Translations: [Demyelinating disease of central nervous system, unspecified] Chronic Other nervous system disorders (6 sources) Carpal tunnel syndrome; Translations: [Carpal tunnel syndrome, bilateral upper limbs] 11-13-2023 Chronic Other nervous system disorders (10 sources) Carpal tunnel syndrome, bilateral upper limbs; Translations: [Carpal tunnel syndrome] 11-13-2023 Chronic Other nutritional; endocrine; and metabolic disorders (4 sources) Obese class II; Translations: [Body mass index 37.0-37.9, adult] Onset: 10-01-2017 Chronic Other nutritional; endocrine; and metabolic disorders (4 sources) Obese class I; Translations: [Body mass index 34.0-34.9, adult] Onset: 10-01-2017 Chronic Other nutritional; endocrine; and metabolic disorders (4 sources) Body mass index 25-29 - overweight; Translations: [Body mass index (BMI) 27.0-27.9, adult] Episodic Other screening for suspected conditions (not mental disorders or infectious disease) (1 source) Encounter for screening mammogram for malignant neoplasm of breast Episodic Other upper respiratory disease (4 sources) Allergic rhinitis; Translations: [Allergic rhinitis, unspecified] Chronic Other upper respiratory infections (4 sources) Chronic sinusitis; Translations: [Chronic sinusitis, unspecified] Chronic Other upper respiratory infections (8 sources) Acute maxillary sinusitis; Translations: [Acute maxillary sinusitis, unspecified] Onset: 10-01-2017 Episodic Otitis media and related conditions (12 sources) Acute otitis media of left ear with effusion; Translations: [Other acute nonsuppurative otitis media, left ear] Onset: 02-20-2019 Episodic Residual codes; unclassified (4 sources) Insomnia; Translations: [Insomnia, unspecified] Episodic Residual codes; unclassified (4 sources) Postmenopausal state; Translations: [Asymptomatic menopausal state] Episodic Spondylosis; intervertebral disc disorders; other back problems (18 sources) Cervical spondylosis; Translations: [Other spondylosis with radiculopathy, cervical region] Onset: 11-16-2021 Resolved: 12-05-2021 Chronic Spondylosis; intervertebral disc disorders; other back problems (9 sources) Lumbar radiculopathy; Translations: [Radiculopathy, lumbar region] Onset: 10-01-2023 01-17-2024 Episodic Unclassified (1 source) Low back pain, unspecified; Translations: [Low back pain, unspecified] Onset: 02-08-2024 Varicose veins of lower extremity (2 sources) Varicose veins of lower limb co-occurrent with edema; Translations: [Varicose veins of left lower extremity with other complications] 02-11-2024 Episodic Viral infection (4 sources) Disease caused by 2019-nCoV; Translations: [COVID-19] Past or Other Problems Problem Classification Problem Date Documented Da te Episodic/Chronic Gastrointestinal hemorrhage (1 source) Hemorrhage of anus and rectum; Translations: [Hemorrhage of anus and rectum] Onset: 08-13-2023 Episodic Other gastrointestinal disorders (1 source) Change in bowel habit; Translations: [Change in bowel habit] Onset: 08-13-2023 Episodic Other non-traumatic joint disorders (4 sources) Shoulder joint pain; Translations: [Pain in right shoulder] Onset: 07-06-2016 Episodic Unclassified (4 sources) Surveillance of contraception; Translations: [Surveillance of other previously prescribed contraceptive method] Results Test Name Value Interpretation Reference Range Facility Creatinine (Bld) [Mass/Vol]O rdered By: Ester Knox on 02-08-2024 Creatinine [Mass/Vol] 0.7 mg/dL 0.6-1.3 [facility] Comment on above: ER/ESD physician is notified/shown all ISTAT results.Critical values may be confirmed by laboratory testing ifdeemed necessary by ER attending doctor. MR lumbar spine wo/w conon 0 02-08-2024 MR lumbar spine wo/w con [facility] Main [place] [address] [place], [place] [id number] MRI Report Signed Patient: Melodie Corbin MR#: [id number] : 1965 Acct:[id number] Age/Sex: 59 / F ADM Date: 02/08/24 Loc: MR Room: Type[facility] Attending Dr: Ester Knox APRN Copies to: Ester Knox APRN Ordering Provider: Ester Knox APRN Date of Service: 02/08/24 MR/MR lumbar spine wo/w con: M54.16 - Radiculopathy, lumbar region MR lumbar spine wo/w con 02/08/2024 10:55 AM SIGNS AND SYMPTOMS: History of lumbar laminectomy with chronic low back pain radiating down left leg PROTOCOL: Multiplanar multisequence MR images of the lumbar spine were obtained with and without IV contrast CONTRAST: 20 mL of intravenous ProHance COMPARISON: 10/01/2023 FINDINGS: The bones of the lumbar spine are in anatomic alignment. There is preservation of vertebral body heights. There is mild intervertebral disc height loss at T12-L1. There is severe disc height loss at L5-S1. There is disc desiccation and mild disc height loss at L4-5. There is Modic type I endplate edema at T11-T12 and T12-L1. There is a benign-appearing hemangioma in the L1 vertebral body. The conus terminates at the superior endplate of the L2 vertebral body level. No epidural or paraspinous fluid collection is appreciated. At T12-L1: There is a broad-based disc bulge. There is facet hypertrophy. There is mild spinal canal stenosis with no significant neural foraminal narrowing. At L1-L2: There is a normal disc, central canal, and neural foramen. At L2-L3: There is a normal disc, central canal, and neural foramen. At L3-L4: There is a normal disc, central canal, and neural foramen. At L4-L5: There is a broad-based disc bulge with a central disc protrusion. There is mild spinal canal stenosis. There is facet hypertrophy and ligament flavum thickening. There is mild bilateral neural foraminal narrowing. At L5-S1: There is a circumferential disc bulge with endplate osteophyte formation and facet hypertrophy. There is moderate to severe left and moderate right neural foraminal narrowing. No spinal canal narrowing. There is evidence of previous left hemilaminotomy. There is enhancement surrounding the traversing left S1 nerve roots consistent with granulation tissue. MR/MR lumbar spine wo/w con IMPRESSION: At T12-L1: There is a broad-based disc bulge. There is facet hypertrophy. There is mild spinal canal stenosis with no significant neural foraminal narrowing. At L4-L5: There is a broad-based disc bulge with a central disc protrusion. There is mild spinal canal stenosis. There is facet hypertrophy and ligament flavum thickening. There is mild bilateral neural foraminal narrowing. At L5-S1: There is a circumferential disc bulge with endplate osteophyte formation and facet hypertrophy. There is moderate to severe left and moderate right neural foraminal narrowing. No spinal canal narrowing. There is evidence of previous left hemilaminotomy. There is enhancement surrounding the traversing left S1 nerve roots consistent with granulation tissue. Impression dictated by: Romeo Mason M.D.02/08/2024 3:22 PM Dictation Location: [place] [address] Transcribed By: [facility] 02/08/24 1522 Dictated By: Romeo Mason II, MD 02/08/24 1510 Signed By: 02/08/24 1522 Normal [facility] No Panel InformationOrdered By: Ester Knox on 02-08-2024 Bedside Estimated GFR (eGFR) > 60.0 [facility] XR lumbar spine AP/LAT/FLX/E XTon 02-08-2024 XR lumbar spine AP/LAT/FLX/EXT [facility] [address] XRay Report Signed Patient: Melodie Corbin MR#: [id number] : 1965 Acct:[id number] Age/Sex: 59 / F ADM Date: 02/08/24 Loc: MR Room: Type: [facility] Attending Dr: Ester Knox APRN Copies to: Ester Knox APRN Ordering Provider: Ester Knox APRN Date of Service: 02/08/24 XR/XR lumbar spine AP/LAT/FLX/EXT: M54.50 - Low back pain, unspecified AP with lateral neutral, flexion extension views Lumbar Spine HISTORY: Low back pain radiation down the legs COMPARISON: None POSTSURGICAL CHANGES: None BONY ALIGNMENT: Adequate HYPERMOBILITY:No hypermobility LISTHESIS:None FRACTURE: None DEGENERATIVE CHANGES: Extensive L5-S1 spondylosis. Multilevel facet degeneration SOFT TISSUES: Unremarkable BONY MINERALIZATION:Adequ ate XR/XR lumbar spine AP/LAT/FLX/EXT IMPRESSION: No hypermobility. Extensive lower lumbar degeneration. Impression dictated by: Calderon Barreto M.D.02/08/2024 4:02 PM Dictation Location: [place] [address] Transcribed By: [facility] 02/08/24 1602 Dictated By: Calderon Barreto DO 02/08/24 1601 Signed By: 02/08/24 1602 Normal [facility] MR head/brain wo/w conon MR head/brain wo/w con [facility] [place] [address] MRI Report Signed Patient: Melodie Corbin MR#: [id number] : 1965 Acct:[id number] Age/Sex: 58 / F ADM Date: 11/12/23 Loc: Room: Type: [facility] Attending Dr: Travis Sadler MD Copies to: Travis Sadler MD Ordering Provider: Travis Sadler MD Date of Service: 11/12/23 MR/MR head/brain wo/w con: D32.9 - Benign neoplasm of meninges, unspecified MR head/brain wo/w con 11/12/2023 9:24 AM SIGN AND SYMPTOMS: History of brain tumors, follow-up, new onset headaches PROTOCOL: Multiplanar multisequence MR images of the brain were obtained with and without IV contrast CONTRAST: 17 mL of intravenous ProHance COMPARISON: 11/01/2022 FINDINGS: Extra axial spaces: Is a similar extra-axial dural based homogeneously enhancing lesion along the inner table of the right frontal bone measuring 10 x 11 mm in greatest dimension consistent with a meningioma. Inferior to this appears to be a more calcified meningioma measuring 12 x 6 mm in greatest dimension. Hemorrhage: None. Ventricular system: Within normal limits. Basal cisterns: Within normal limits and not effaced. Cerebral parenchyma: Periventricular and subcortical white matter T2 and FLAIR hyperintense foci are noted consistent with chronic microvascular ischemic change. Midline shift: None.. Cerebellum: Within normal limits. Brainstem: T2 and FLAIR hyperintense foci are noted in the pontine white matter. OTHER: Calvarium: Normal marrow signal. Vascular system: Satisfactory flow voids within the anterior and posterior circulation. Visualized Paranasal sinuses: Within normal limits. Visualized Orbits: Within normal limits. Visualized upper cervical spine: Within normal limits. Sella and skull base: Within normal limits. MR/MR head/brain wo/w con IMPRESSION: Unchanged calcified and noncalcified meningiomas along the inner table of the right side of the frontal bone. Similar chronic microvascular ischemic changes. Impression dictated by: Romeo Mason M.D.11/12/2023 1:16 PM Dictation Location: [place] [address] Transcribed By: [facility] 11/12/23 1316 Dictated By: Romeo Mason II, MD 11/12/23 1308 Signed By: 11/12/23 1316 Normal [facility] MR lumbar spine wo conon MR lumbar spine wo con [facility] [address] MRI Report Signed Patient: Melodie Corbin MR#: [id number] : 1965 Acct:[id number] Age/Sex: 58 / F ADM Date: 10/01/23 Loc: MR Room: Type: [facility] Attending Dr: Marcos Weinberg MD Copies to: Marcos Weinberg MD Ordering Provider: Marcos Weinberg MD Date of Service: 10/01/23 MR/MR lumbar spine wo con: M54.17 MR lumbar spine wo con 10/01/2023 7:57 AM SIGNS AND SYMPTOMS: Chronic low back pain radiating into bilateral hips PROTOCOL: Multiplanar multisequence MR images of the lumbar spine were obtained without IV contrast COMPARISON: 05/10/2023 FINDINGS: The bones of the lumbar spine are in anatomic alignment. There is preservation of vertebral body heights. There is severe disc height loss with partial fusion across the L5-S1 intervertebral disc. There is Modic type II fatty endplate degenerative change at L5-S1. The marrow signal is otherwise within normal limits. The conus terminates at the superior endplate of the L2 vertebral body level. No epidural or paraspinous fluid collection is appreciated. At T12-L1: There is a broad-based disc bulge with facet hypertrophy. There is mild spinal canal narrowing. No significant neural foraminal stenosis. This is unchanged. At L1-L2: There is a normal disc, central canal, and neural foramen. At L2-L3: There is a normal disc, central canal, and neural foramen. At L3-L4: There is a normal disc, central canal, and neural foramen. At L4-L5: There is a broad-based disc bulge with a central focal disc protrusion contributing to mild spinal canal narrowing and mild bilateral neural foraminal narrowing. This is unchanged. At L5-S1: There is evidence of previous left hemilaminotomy. There is endplate osteophyte formation with fusion across intervertebral disc space. There is facet hypertrophy. There is moderate bilateral neural foraminal narrowing with mild spinal canal narrowing. This is similar to the prior exam. MR/MR lumbar spine wo con IMPRESSION: At L5-S1: There is evidence of previous left hemilaminotomy. There is endplate osteophyte formation with fusion across intervertebral disc space. There is facet hypertrophy. There is moderate bilateral neural foraminal narrowing with mild spinal canal narrowing. This is similar to the prior exam. Lesser degrees of degenerative changes are noted at T12-L1 and L4-5 without significant interval change. Impression dictated by: Romeo Mason M.D.10/01/2023 12:19 PM Dictation Location: [place] [address] Transcribed By: ADDIE 10/01/23 1219 Dictated By: Romeo Mason II, MD 10/01/23 1206 Signed By: 10/01/23 1219 Normal [facility] XR hips BI 4V adulton 2023 XR hips BI 4V adult [facility] [place] [id number] XRay Report Signed Patient: Melodie Corbin MR#: [id number] : 1965 Acct:[id number] Age/Sex: 58 / F ADM Date: 10/01/23 Loc: Room: Type: [facility] CLI Attending Dr: Marcos Weinberg MD Copies to: Marcos Weinberg MD Ordering Provider: Marcos Weinberg MD Date of Service: 10/01/23 XR/XR hips BI 4V adult: M16.0 BILATERAL HIP -2 views each of one view pelvis CLINICAL HISTORY: Pain in lower back that radiates into hips for years. COMPARISON: None FINDINGS: Mild degenerative changes of both hips without acute bony process. Additional degenerative changes involving the visualized lower lumbar spine and SI joints. XR/XR hips BI 4V adult IMPRESSION: MILD DEGENERATIVE CHANGES OF THE BONY PELVIS AND HIPS WITHOUT ACUTE BONY PROCESS.. Impression dictated by: Brandon Garg Jr., D.OChristiano10/01/2023 10:45 AM Dictation Location: [place] [address] Transcribed By: [facility] 10/01/23 1045 Dictated By: Brandon Garg Jr, DO 10/01/23 1044 Signed By: 10/01/23 1045 Normal [facility] XR pre/post mri xrayon 05-10 XR pre/post mri xray [facility] [place] [id number] MRI Report Signed Patient: Melodie Corbin MR#: [id number] : 1965 Acct:[id number] Age/Sex: 58 / F ADM Date: 05/10/23 Loc: [facility] Room: Type: [facility] CLI Attending Dr: Gale RIVAS Copies to: ROB Easton Ordering Provider: ROB Easton Date of Service: 05/10/23 MR/MR lumbar spine wo con: M46.96 ([id number]) XR/XR pre/post mri xray: M46.96 MR lumbar spine wo con, XR pre/post mri xray 05/10/2023 10:12 AM SIGNS AND SYMPTOMS: Bilateral lower extremity radiculopathy, back pain PROTOCOL: Multiplanar multisequence MR images of the lumbar spine were obtained without IV contrast. Frontal and lateral radiograph the lumbar spine were obtained. COMPARISON: 04/20/2020 FINDINGS: Radiographs of the lumbar spine: Surgical clips are present in the right upper quadrant consistent with prior cholecystectomy. There is severe disc height loss at L5-S1. Facet hypertrophy is present throughout the lumbar spine, greatest at L4-5. Degenerative changes are noted in the hips bilaterally. Vascular calcifications are present in the pelvis. MRI lumbar spine: The bones of the lumbar spine are in anatomic alignment. There is preservation of vertebral body heights. There is moderate narrowing of the intervertebral disc at T12-L1 with severe disc height loss at L5-S1. The marrow signal is within normal limits. The conus terminates at the L1-L2 intervertebral disc level. No epidural or paraspinous fluid collection is appreciated. At T12-L1: There is a broad-based disc bulge with facet hypertrophy. There is minimal spinal canal narrowing without significant neural foraminal narrowing. This is unchanged. At L1-L2: There is a normal disc, central canal, and neural foramen. At L2-L3: There is a normal disc, central canal, and neural foramen. At L3-L4: There is a normal disc, central canal, and neural foramen. At L4-L5: There is a broad-based disc bulge with a T2 hyperintense central annular fissure. There is facet hypertrophy. There is mild spinal canal narrowing with mild right neural foraminal narrowing. This is unchanged. At L5-S1: There is a circumferential disc bulge with endplate osteophyte formation and evidence of previous left hemilaminotomy. There is mild right and moderate left neural foraminal narrowing without significant spinal canal narrowing. This is unchanged. MR/MR lumbar spine wo con IMPRESSION: Redemonstration of disc and facet degenerative changes at T12-L1, L4-L5, and L5-S1. There is evidence of previous left hemilaminotomy at L5-S1. Impression dictated by: Romeo Mason M.D.05/10/2023 3:20 PM Dictation Location: [place] [address] Transcribed By: [facility] 05/10/23 1520 Dictated By: Romeo Mason II, MD 05/10/23 1512 Signed By: 05/10/23 1520 Normal [facility] MG MAMM SCREEN 3D SHERRI CADon 10-16-2022 MG MAMM SCREEN 3D SHERRI CAD Patient: MELODIE CORBIN Exam Date: 10/16/2022 : 1965 Gender:F Ordering : DR SHIRA SADLER M.D. Admission #: [id number] Family : Order #: [id number] CLICK HERE TO VIEW EXAM RADIOLOGY REPORT PROCEDURE: MAMMOGRAM SCREENING 3D BILATERAL CAD COMPARISON: None. INDICATIONS: Screening mammography Calculator Name NCI Breast Cancer Risk Assessment Tool 5 Year Breast Cancer Risk 1.80% Lifetime Breast Cancer Risk 10.00% Personal Breast Cancer No Personal Ovarian Cancer No Treatments None Family Cancers Father with prostate cancer at age 78. LOCATION: [facility] BREAST COMPOSITION: Heterogeneously dense,which may obscure small masses. FINDINGS: DIAGNOSTIC CATEGORY 2--BENIGN FINDING: RIGHT BREAST: No significant suspicious finding. Scattered benign-appearing calcifications are present. LEFT BREAST: No significant suspicious finding. Scattered benign-appearing calcifications are present. RECOMMENDATIONS: ROUTINE MAMMOGRAM AND CLINICAL EVALUATION IN 12 MONTHS. PLEASE NOTE: A NORMAL MAMMOGRAM DOES NOT EXCLUDE THE POSSIBILITY OF BREAST CANCER. A CLINICALLY SUSPICIOUS PALPABLE LUMP SHOULD BE BIOPSIED. Dictated by: Ariel Mota M.D. on 10/16/2022 at 11:10 Approved by: Ariel Mota M.D. on 10/16/2022 at 11:20 Normal [facility] Progress Note-Physicianon Protein mass conc Patient: MELODIE CORBIN Age: 53 years Sex: Female : 1965 Associated Diagnoses: None Author: Juan Miguel Campbell DO Subjective Subjective: Patient presents [employer] for the first evaluation of an injury that occurred at 8:00 this morning at work when she dropped an 8 pound metal object onto the top of her left foot. She does wear steel toed boots. However, it struck her to the ankle joint off of the edge of the steel toe. She tried to walk it off and she continued to use elevation and ice at work when she could decided by the end the shift that it needed to be evaluated and she is here for that evaluation. Health Status Allergies: No active allergies have been recorded. Objective Objective: Examination of her left foot with her boot and sock removed reveals redness approximate the size of a quarter, directly over the neck of the talus. There is no open skin. Pulses and neurological status of the foot and all toes is intact. Ankle motion is unaffected and normal and stable. No deformity is present. A slight amount of local swelling is noted with the slight amount of redness at the point of contact. Gait is otherwise unremarkable Impression and Plan Impression: Contusion, left foot.Plan: Patient was advised to take advantage of the restrictions of 5 hours of standing and walking and 10 hours total sitting on an average shift. They'll continue until the 12th. When she resumes regular duty. I'll see her back here on an as-needed basis only. Diagnosis: Contusion of left foot ([id number] S90.32XA, Working, Medical). Normal [facility] Comment on above: Result Comment: Elec tronically Signed By: Juan Miguel Campbell DO\.br\Date and Time Signed: 04/02/18 13:57 EDT Vital Signs Date Time Vital Sign Value Performing Clinician Facility 02-21-2024 09:23-0400 Body height 175.26 cm MD Shira Sadler Work Phone: [facility] 02-21-2024 09:23-0400 Body mass index (BMI) [Ratio] 30.3 kg/m2 MD Shira Sadler Work Phone: [facility] 02-21-2024 09:23-0400 Body weight 93.15 kg MD Shira Sadler Work Phone: [facility] 02-11-2024 13:45-0400 Body height 175.26 cm MD Shira Sadler Work Phone: [facility] 02-11-2024 13:45-0400 Body mass index (BMI) [Ratio] 29.8 kg/m2 MD Shira Sadler Work Phone: [facility] 02-11-2024 13:45-0400 Body weight 91.62 kg MD Shira Sadler Work Phone: [facility] 02-11-2024 13:45-0400 Diastolic blood pressure 81 mm[Hg] MD Shira Sadler Work Phone: [facility] 02-11-2024 13:45-0400 Heart rate 58 /min MD Shira Sadler Work Phone: [facility] 02-11-2024 13:45-0400 Systolic blood pressure 177 mm[Hg] MD Shira Sadler Work Phone: [facility] 02-08-2024 06:43-0400 Body height 175.26 cm MD Shira Sadler Work Phone: [facility] 02-08-2024 06:43-0400 Body weight 86.18 kg MD Shira Sadler Work Phone: [facility] 02-07-2024 09:41-0400 Body height 167.64 cm MD Shira Sadler Work Phone: [facility] 02-07-2024 09:41-0400 Body mass index (BMI) [Ratio] 32.7 kg/m2 MD Shira Sadler Work Phone: [facility] 02-07-2024 09:41-0400 Body weight 92 kg MD Shira Sadler Work Phone: [facility] 01-17-2024 09:53-0400 Body weight 92.07 kg MD Shira Sadler Work Phone: [facility] 12-20-2023 11:37-0400 Body height 167.64 cm MD Shira Sadler Work Phone: [facility] 12-20-2023 11:37-0400 Body mass index (BMI) [Ratio] 32.3 kg/m2 MD Shira Sadler Work Phone: [facility] 12-20-2023 11:37-0400 Body weight 90.71 kg MD Shira Sadler Work Phone: [facility] 12-11-2023 09:33-0400 Body height 167.64 cm MD Shira Sadler Work Phone: [facility] 12-11-2023 09:33-0400 Body mass index (BMI) [Ratio] 32.3 kg/m2 MD Shira Sadler Work Phone: [facility] 12-11-2023 09:33-0400 Body weight 90.71 kg MD Shira Sadler Work Phone: [facility] 12-11-2023 09:33-0400 Diastolic blood pressure 93 mm[Hg] MD Shira Sadler Work Phone: [facility] 12-11-2023 09:33-0400 Heart rate 61 /min MD Shira Sadler Work Phone: [facility] 12-11-2023 09:33-0400 Systolic blood pressure 145 mm[Hg] MD Shira Sadler Work Phone: [facility] 11-13-2023 09:39-0400 Body height 167.64 cm MD Shira Sadler Work Phone: [facility] 11-13-2023 09:39-0400 Body mass index (BMI) [Ratio] 32.1 kg/m2 MD Shira Sadler Work Phone: [facility] 11-13-2023 09:39-0400 Body weight 90.26 kg MD Shira Sadler Work Phone: [facility] 11-12-2023 07:25-0400 Body height 167.64 cm MD Shira Sadler Work Phone: [facility] 11-12-2023 07:25-0400 Body weight 86.18 kg MD Shira Sadler Work Phone: [facility] 09-26-2023 11:17-0400 Body height 167.64 cm MD Shira Sadler Work Phone: [facility] 09-26-2023 10:56-0400 Body height 167.64 cm MD Shira Sadler Work Phone: [facility] 09-26-2023 10:56-0400 Body mass index (BMI) [Ratio] 31.4 kg/m2 MD Shira Sadler Work Phone: [facility] 09-26-2023 10:56-0400 Body weight 88.45 kg MD Shira Sadler Work Phone: [facility] 08-13-2023 11:40-0500 Diastolic blood pressure 68 mm[Hg] MD Shira Sadler Work Phone: [facility] 08-13-2023 11:40-0500 Heart rate 54 /min MD Shira Sadler Work Phone: [facility] 08-13-2023 11:40-0500 Respiratory rate 16 /min MD Shira Sadler Work Phone: [facility] 08-13-2023 11:40-0500 SaO2% (BldA) [Mass fraction] 100 % MD Shira Sadler Work Phone: [facility] 08-13-2023 11:40-0500 Systolic blood pressure 145 mm[Hg] MD Shira Sadler Work Phone: [facility] 08-13-2023 10:39-0500 Body height 167.64 cm MD Shira Sadler Work Phone: [facility] 08-13-2023 10:39-0500 Body temperature 98.5 [degF] MD Shira Sadler Work Phone: [facility] 08-13-2023 10:39-0500 Body weight 88.45 kg MD Shira Sadler Work Phone: [facility] 07-12-2023 10:00-0500 Body height 170.18 cm MD Shira Sadler Work Phone: [facility] 07-12-2023 10:00-0500 Body weight 89.9 kg MD Shira Sadler Work Phone: [facility] 07-12-2023 10:00-0500 Diastolic blood pressure 89 mm[Hg] MD Shira Sadler Work Phone: [facility] 07-12-2023 10:00-0500 Systolic blood pressure 141 mm[Hg] MD Shira Sadler Work Phone: [facility] 01-18-2023 13:15-0400 Body height 170.18 cm Shira Sadler Other [employer] Other 01-18-2023 13:15-0400 Body mass index (BMI) [Ratio] 29.75 kg/m2 Shira Sadler Other [employer] [facility] [employer] Other 01-18-2023 13:15-0400 Body weight 86.18 kg Shira Sadler Other [employer] Other 01-18-2023 13:15-0400 Diastolic blood pressure 87 mm[Hg] Shira Sadler Other [employer] Other 01-18-2023 13:15-0400 Systolic blood pressure 147 mm[Hg] Shira Sadler Other [employer] Other 11-01-2022 07:13-0400 Body height 170.18 cm MD Shira Sadler Work Phone: [facility] 11-01-2022 07:13-0400 Body weight 86.18 kg MD Shira Sadler Work Phone: [facility] 12-05-2021 11:00-0400 Body height 170.18 cm John Nath Other [employer] Other 12-05-2021 11:00-0400 Body mass index (BMI) [Ratio] 29.13 kg/m2 John Nath Other [employer] Other 12-05-2021 11:00-0400 Body weight 84.37 kg John Nath Other [employer] Other 11-16-2021 11:45-0400 Body height 170.18 cm John Nath Other [employer] Other 11-16-2021 11:45-0400 Body mass index (BMI) [Ratio] 29.44 kg/m2 John Nath Other [employer] Other 11-16-2021 11:45-0400 Body weight 85.28 kg John Nath Other [facility] [employer] Other 11-04-2021 07:54-0400 Body height 170.18 cm MD Shira Sadler Work Phone: [facility] 11-04-2021 07:54-0400 Body weight 87.08 kg MD Shira Sadler Work Phone: [facility] Encounters Encounter Date Encounter Type Care Provider Facility Start: 02-21-2024 End: 02-21-2024 ambulatory MD Shira Sadler Work Phone: [facility] Work Phone: Start: 02-21-2024 End: 02-21-2024 Patient encounter procedure MD Shira Sadler Work Phone: [facility] Work Phone: Start: 02-11-2024 End: 02-11-2024 Patient encounter procedure MD Shira Sadler Work Phone: [facility] Work Phone: Start: 02-08-2024 End: 02-08-2024 Patient encounter procedure MD Shira Sadler Work Phone: [facility] [place] Work Phone: Start: 02-08-2024 End: 02-08-2024 ambulatory MD Shira Sadler Work Phone: [facility] Work Phone: Start: 02-07-2024 End: 02-07-2024 ambulatory MD Shira Sadler Work Phone: [facility] Work Phone: Start: 02-07-2024 End: 02-07-2024 Patient encounter procedure MD Shira Sadler Work Phone: [facility] Work Phone: Start: 01-17-2024 End: 01-17-2024 ambulatory MD Shira Sadler Work Phone: [facility] Work Phone: Start: 01-17-2024 End: 01-17-2024 Patient encounter procedure MD Shira Sadler Work Phone: [facility] Phys[facility] Work Phone: Start: 12-20-2023 End: 12-20-2023 ambulatory MD Shira Sadler Work Phone: [facility] Work Phone: Start: 12-20-2023 End: 12-20-2023 Patient encounter procedure MD Shira Sadler Work Phone: [facility] Phys[facility] Neuro[facility] Work Phone: Start: 12-13-2023 End: 12-13-2023 ambulatory MARIANNA TORRES Not Available Start: 12-11-2023 End: 12-11-2023 ambulatory MD Shira Sadler Work Phone: [facility] Work Phone: Start: 12-11-2023 End: 12-11-2023 Patient encounter procedure MD Shira Sadler Work Phone: [facility] Physician [facility] Gastroenterology Work Phone: Start: 11-13-2023 End: 11-13-2023 ambulatory MD Shira Sadler Work Phone: [facility] Work Phone: Start: 11-13-2023 End: 11-13-2023 Patient encounter procedure MD Shira Sadler Work Phone: [facility] Neurosurgery Work Phone: Start: 11-12-2023 End: 11-12-2023 Patient encounter procedure MD Shira Sadler Work Phone: [facility] [place] Work Phone: Start: 11-12-2023 End: 11-12-2023 ambulatory MD Shira Sadler Work Phone: [facility] Work Phone: Start: 10-02-2023 Non-patient / Non-visit MD Shira Sadler Work Phone: Formerly [facility], [facility] Physician [facility] Work Phone: Start: 10-01-2023 End: 10-01-2023 Patient encounter procedure MD Shira Sadler Work Phone: [facility] [place] Work Phone: Start: 10-01-2023 End: 10-01-2023 ambulatory MD Shira Sadler Work Phone: [facility] Work Phone: Start: 09-26-2023 End: 09-26-2023 ambulatory MD Shira Sadler Work Phone: [facility] Work Phone: Start: 09-26-2023 End: 09-26-2023 Patient encounter procedure MD Shira Sadler Work Phone: Formerly [facility], [facility] Physician Group-[facility] Gastroenterology Work Phone: Start: 08-13-2023 Non-patient / Non-visit MD Shira Sadler Work Phone: Formerly [facility], [facility] Physician Group-[facility] G[facility]ology Work Phone: Start: 08-13-2023 End: 08-13-2023 Admission to same day surgery center MD Shira Sadler Work Phone: [facility] Work Phone: Start: 08-13-2023 End: 08-13-2023 ambulatory MD Shira Sadler Work Phone: [facility] Work Phone: Start: 07-17-2023 End: 07-17-2023 ambulatory Rigo Chance Other [employer] Other Start: 07-17-2023 Telephone encounter Rigo Chance [facility] [employer] Start: 07-12-2023 End: 07-12-2023 Patient encounter procedure MD Shira Sadler Work Phone: Formerly [facility] Physician Group- Start: 05-10-2023 End: 05-10-2023 Patient encounter procedure MD Shira Sadler Work Phone: [facility] [address] Work Phone: Start: 05-10-2023 End: 05-10-2023 ambulatory MD Shira Sadler Work Phone: [facility] Work Phone: Start: 04-24-2023 End: 04-24-2023 ambulatory Shira Sadler Other [employer] Other Start: 04-24-2023 Telephone encounter Shira Sadler [facility] Start: 03-02-2023 End: 03-02-2023 ambulatory Shira Sadler Other [employer] Other Start: 03-02-2023 Telephone encounter Shira Sadler [facility] Start: 02-07-2023 End: 02-07-2023 ambulatory Shira Sadler Other [employer] Other Start: 02-07-2023 Telephone encounter Shira Sadler [facility] Start: 01-18-2023 End: 01-18-2023 ambulatory Shira Sadler Other [employer] Other Start: 01-18-2023 Office outpatient visit 25 minutes Shira Sadler [facility] Start: 11-01-2022 End: 11-01-2022 ambulatory MD Shira Sadler Work Phone: [facility] Work Phone: Start: 11-01-2022 End: 11-01-2022 Patient encounter procedure MD Shira Sadler Work Phone: [facility] [place] Work Phone: Start: 10-16-2022 End: 10-17-[address] SHIRA SADLER Facility: Start: 10-06-2022 End: 10-06-2022 ambulatory Shira Sadler Other [employer] Other Start: 10-06-2022 Telephone encounter Shira Sadler [facility] Start: 12-05-2021 End: 12-05-2021 ambulatory John Nath Other [employer] Other Start: 12-05-2021 Office outpatient visit 15 minutes John Nath [facility] Start: 12-03-2021 End: 12-03-2021 Patient encounter procedure MD Shira Sadler Work Phone: [facility] Start: 11-16-2021 End: 11-16-2021 ambulatory John Nath Other [employer] Other Start: 11-16-2021 Office outpatient visit 15 minutes John Nath [facility] Start: 11-04-2021 End: 11-04-2021 Patient encounter procedure MD Shira Sadler Work Phone: [facility] Start: 04-02-2018 Patient encounter Juan Miguel Palacios ity:[id number] Start: 04-02-2018 End: 04-03-2018 Patient encounter Juan Miguel Campbell Facility:[id number] Procedures Date Procedure Procedure Detail Performing Clinician Start: 02-08-2024 MRI of lumbar spine with contrast MD Shira Sadler Work Phone: Start: 02-08-2024 X-ray of lumbar spin e, four views MD Shira Sadler Work Phone: Start: 11-12-2023 MRI of head MD Shria Sadler Work Phone: Start: 10-01-2023 Plain x-ray of pelvi s and lower extremity MD Shira Sadler Work Phone: Start: 10-01-2023 MR lumbar spine wo con MD Shira Sadler Work Phone: Start: 08-13-2023 Colonoscopy MD Shira Sadler Work Phone: Start: 05-10-2023 XR pre/post mri xray MD Shira Sadler Work Phone: Start: 05-10-2023 MR lumbar spine wo con MD Shira Sadler Work Phone: Start: 11-01-2022 MRI of head MD Shira Sadler Work Phone: Start: 12-03-2021 MRI of cervical spin e with contrast MD Shira Sadler Work Phone: Start: 11-04-2021 MRI of head MD Shira Sadler Work Phone: Start: 07-06-2016 Screening mammography More Sadler Other Start: 05-16-2013 General examination of patient Shira Sadler Other Screening for malign ant neoplasm of breast Shira Sadler Other Plan of Treatment Date Care Activity Detail Author Start: 02-11-2024 Patient referral [facility] Work Phone: Start: 11-13-2023 Patient referral [facility] Work Phone: Start: 08-13-2023 [facility] MR Lumbar spine WO a nd W contrast IV [facility] Patient Education Hemorrhoids (DC) [facility] Work Phone: Patient referral [facility] Work Phone: XR Lumbar spine 4 Views [facility] Immunizations Immunization Date Immunization Notes Care Provider Avinash ortega NEGATED: Highlighted row has not occurred!04-16-2019 influenza, high dose seasonal, preservative-free Patient Objection John Nath Other [employer] Other NEGATED: Highlighted row has not occurred!03-24-2019 influenza, high dose seasonal, preservative-free Patient Objection John Nath Other [employer] Other Payers Date Payer Category Payer Self-pay [id number] 2018 Worker's Compensation [id number] 1965 Unknown [id number] [id number] [id number] 1965 Unknown [id number] 2.16.84 [id number] 1965 Unknown [id number] 2.16.84 [id number] 1959 Unknown [id number] Unknown [id number] 2.16.8 [id number] Unknown [id number] 2.16.8 [id number] Unknown [id number] 2.16.8 [id number] Unknown [id number] 2.16.8 [id number] Unknown [id number] 2.16.8 [id number] Social History Date Type Detail Facility Tobacco smoking status NHIS Unknown if ever smoked [facility] Other Start: 1965 Sex Assigned At Female F [facility] Sex Assigned At Sex Assigned At Bir th [employer] Other Start: 08-13-2023 End: 08-13-2023 Tobacco smoking status NHIS Never smoked tobacco (finding) [facility] Goals Date Patient Goal Desired Activity /State Clinical Notes 11-16-2021 to 12-11-2023 Note Date & Type Note Facility 12-11-2023 Evaluation note Authored December 11, 2023 9:49 am Abdominal cramping, abdomina l pain, 1-2 weekly bowel movements, patient negative for rectal bleeding [facility] Work Phone: [phone]) 894-987702-19-2024 [facility] note* Encounter Date Diagnosis Assessment Notes Treatment Notes Treatment Clinical Notes Dec, Anxiety (ICD-10 - F41.9) Improved on present med with counseling. Followup in 1 year or sooner if needed. Dec, Migraine with aura and without status migrainosus, not intractable (ICD-10 - G43.109) Decreased in frequency. 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 Needs FMLA for this, anxiety and migraines. Dec, Essential (primary) hypertension (ICD-10 - I10) improved! Stable, overdue for blood work Dec, Meningioma (ICD-10 - D32.9) Reviewed notes from Dr. Adama Sadler. Recheck w MRI in September 2023. [facility] Other 04-14-2023 Evaluation note* Encounter Date Diagnosis Assessment Notes Treatment Notes Treatment Clinical Notes Sep, Screening mammogram for breast cancer (ICD-10 - Z12.31) [facility] Other 06-13-2022 Evaluation note* Encounter Date Diagnosis Assessment Notes Treatment Notes Treatment Clinical Notes Nov, Multiple meningioma (ICD-10 - D42.9) Nov, Spondylosis of cervical region without myelopathy or radiculopathy (ICD-10 - M47.812) Patient should follow-up with another MRI scan on the anniversary of her previous study. Follow either with her medical doctor or with my partner at that time. She is also following with Dr. Torres neurology which I think is appropriate. [facility] Other 05-25-2022 Evaluation note* Encounter Date Diagnosis Assessment Notes Treatment Notes Treatment Clinical Notes October, Multiple meningioma (ICD-10 - D42.9) I truly do not feel the patient's headaches and questionable episodes of nausea and vomiting are related to these meningiomas. I think she should have a more formal evaluation by her neurologist for management and treatment of her headaches.From a neurosurgical standpoint she needs to have a follow-up MRI scan again in 1 year.This should be with and without gadolinium.I would like her to be followed for at least 5 years yearly and then probably every other year after that. Her first study that I have available is from August 2019. Therefore we would see her again in 2022, and 2023, and then probably every other year after that. October, Cervical spondylosis with radiculopathy (ICD-10 - M47.22) Patient had an MRI scan cervical spine done in 2018 that I independently reviewed that showed mild spondylosis but no radicular compression. This was a routine MRI of fairly low quality and did not have gadolinium. 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 [employer] Other evaluation noteNo assessment information available [facility] Work Phone: Evaluation noteNo InformationNort [employer] Other Evaluation note* Diagnosis Onset Date Resolution Status Constipation acute Hemorrhoids acute [facility] Work Phone: Evaluation note* Diagnosis Onset Date Resolution Status Constipation acute Hemorrhoids acute Irritable bowel syndrome with constipation acute [facility] Work Phone: Evaluation note* Diagnosis Onset Date Resolution Status Constipation acute Hemorrhoids acute Irritable bowel syndrome with constipation acute Meningioma acute [facility] Work Phone: Evaluation note* Diagnosis Onset Date Resolution Status Constipation acute Hemorrhoids acute Irritable bowel syndrome with constipation acute Carpal tunnel syndrome, bilateral acute Meningioma acute Irritable bowel syndrome with constipation acute [facility] Work Phone: History and physical note Author Rigo Chance [facility] August 13, 2023 10:42am Note Date/Time August 13, 2023 10:42am [facility] [address] [place] [address] Gastroenterology H&P Signed Patient: Melodie Corbin MR#: [id number] 05 : 1965 Acct:[id number] Age/Sex: 58 / F Adm Date: 4 Loc: Room: Type: [facility] Attending Dr: Rigo Chance MD Copies to: MD Shira Stiles MD~ Date of Service: 08/13/2023 HISTORY & PHYSICAL: Patient's history with special attention to the cardiovascular, pulmonary systems and the current problem was reviewed with the patient immediately prior to the procedure. Present medications and doses reviewed in the EMR. Allergies and pertinent laboratory tests were also reviewedat this time in the EMR. The physical examination, as below, was then performed. Indication, assessment and HPI: 58-year-old female presents for colonoscopy to evaluate change in bowel habits with constipation, rectal bleeding Family history of GI malignancy? No PHYSICAL EXAMINATION Mouth and Pharynx : Moist mucus membranes, normal dentition Cardiac: Regular rate, regular rhythm Pulmonary: Clear to auscultation bilaterally, no wheezing Neurological: Alert and oriented x3, no focal deficits noted Abdomen: Abdomen soft, non-tender REVIEW OF SYSTEMS Constitutional: Denies malaise, fevers Cardiovascular: Denies chest pain, palpitations Respiratory: Denies shortness of breath, wheezing Gastrointestinal: Per HPI Genitourinary: Denies dysuria, polyuria Musculoskeletal: Denies joint swelling, joint stiffness Neurological: Denies numbness, tingling Integumentary: Denies rashes, skin lesions Endocrine: Denies fatigue, weight loss Written informed consent obtained from the patient. Risks (including but not limited to perforation, infection, bloating, bleeding, need for emergent surgeryand loss of life), benefits and alternatives explained and questions answered. The patient verbalized understanding. Based on history patient is an appropriate candidate for the procedure. Rigo Chance MD Documented By: Rigo Chance MD 08/13/23 104 Signed By: <Electronically signed by Rigo Chance MD> 08/13/23 1042 [facility] Work Phone: History general Narrative - Reported* Type Description Date Medical History Hearing loss, left Medical History Acute middle ear effusion, left Medical History hypertension Medical History GERD Medical History migraine headaches Surgical History appendectomy 1980 Surgical History tonsillectomy 1980 Surgical History discectomy 2000 Surgical History breast biopsies Surgical History cholecystectomy 2006 Hospitalization History see sx history [facility] Other History general Narrative - Reported* Type Description Date Medical History Hearing loss, left Medical History Acute middle ear effusion, left Medical History hypertension Medical History GERD Medical History migraine headaches Surgical History appendectomy 1981 Surgical History tonsillectomy 1980 Surgical History discectomy 2000 Surgical History breast biopsies Surgical History cholecystectomy 2006 Surgical History Back injections 05/2023 Hospitalization History see sx history [facility] Other Hospital Discharge instructionsAmbulatory Orders* Referral to Neurology Time Frame: 11/13/23, Location: None Selected [facility] Work Phone: Summary Purpose Family History Relationship Condition Age at Onset Recorded Date/T finn father Malignant neoplasm Unknown Hypertension Unknown Not Specified Hypertension Unknown Heart disease Unknown Relationship Condition Age at Onset Recorded Date/T finn father Malignant neoplasm Unknown Hypertension Unknown mother Hypertension Unknown Heart disease Unknown Advance Directives Advance Directive Response Recorded Date/ Time Advance Directives No May 11:49am Advance Directive Response Recorded Date/ Time Advance Directives No May 10:49am Advance Directive Response Recorded Date/ Time Advance Directives Yes November 12 10:30am Chief Complaint and Reason for Visit Chief Complaint g37.9 m47.22 Chief Complaint d32.9 Chief Complaint M46.96 M54.16 R29.89 8 Chief Complaint 6 Month Follow Up chronic constipation chronic constipation Chief Complaint 6 Month Follow Up chronic constipation chronic constipation follow up colonoscopy Reason for Visit Constipation Hemorrhoids Chief Complaint 6 Month Follow Up chronic constipation chronic constipation follow up colonoscopy m16.0 m54.17 Reason for Visit Constipation Hemorrhoids Irritable bowel syndrome with constipation Chief Complaint follow up colonoscop y m16.0 m54.17 Amb Documentation D32.9 Reason for Visit Constipation Hemorrhoids Irritable bowel syndrome with constipation Chief Complaint follow up colonoscop y m16.0 m54.17 Amb Documentation D32.9 yearly f/u meningioma, MRI results Reason for Visit Constipation Hemorrhoids Irritable bowel syndrome with constipation Meningioma Chief Complaint follow up colonoscop y m16.0 m54.17 Amb Documentation D32.9 yearly f/u meningioma, MRI results 2 month follow up Reason for Visit Constipation Hemorrhoids Irritable bowel syndrome with constipation Carpal tunnel syndrome, bilateral Meningioma Irritable bowel syndrome with constipation Chief Complaint follow up colonoscop y m16.0 m54.17 Amb Documentation D32.9 yearly f/u meningioma, MRI results 2 month follow up follow up after EMG Reason for Visit Constipation Hemorrhoids Irritable bowel syndrome with constipation Carpal tunnel syndrome, bilateral Meningioma Irritable bowel syndrome with constipation Carpal tunnel syndrome, bilateral Chief Complaint D32.9 yearly f/u meningioma, MRI results 2 month follow up follow up after EMG f/u numbness in hands Reason for Visit Carpal tunnel syndro me, bilateral Meningioma Irritable bowel syndrome with constipation Carpal tunnel syndrome, bilateral Chief Complaint D32.9 yearly f/u meningioma, MRI results 2 month follow up follow up after EMG f/u numbness in hands 2 month follow up Reason for Visit Carpal tunnel syndro me, bilateral Meningioma Irritable bowel syndrome with constipation Carpal tunnel syndrome, bilateral Right lumbar radiculopathy Abdominal pain Irritable bowel syndrome with constipation Chief Complaint D32.9 yearly f/u meningioma, MRI results 2 month follow up follow up after EMG f/u numbness in hands 2 month follow up M54.16 Reason for Visit Carpal tunnel syndro me, bilateral Meningioma Irritable bowel syndrome with constipation Carpal tunnel syndrome, bilateral Right lumbar radiculopathy Abdominal pain Irritable bowel syndrome with constipation Chief Complaint 2 month follow up follow up after EMG f/u numbness in hands 2 month follow up M54.16 FMLA paperwork MRI results Reason for Visit Irritable bowel synd raquel with constipation Carpal tunnel syndrome, bilateral Right lumbar radiculopathy Abdominal pain Irritable bowel syndrome with constipation Fibromyalgia Right lumbar radiculopathy Varicose veins of left leg with edema Additional Source Comments INFORMATION SOURCE (unrecogn ized section and content) DATE CREATED AUTHOR 05/14/2018 [facility] DATE CREATED AUTHOR AUTHOR'S ORGANIZ ATION 10/18/2022 [facility] DATE CREATED AUTHOR AUTHOR'S ORGANIZ ATION 12/14/2023 [facility] EPIC DATE CREATED AUTHOR AUTHOR'S ORGANIZ ATION 02/10/2024 [facility] y[facility] Care Teams (unrecognized sec tion and content) Team Status: Inactive Member Role Status Dates Shira Sadler MD Primary Care Provider Active John Nath MD Attending Provider Active Team Status: Active Member Role Status Dates Shira Sadler MD Primary Care Provider Active Team Status: Inactive Member Role Status Dates Shira Sadler MD Primary Care Provider Active Travis Sadler MD Attending Provider Active Team Status: Inactive Member Role Status Dates Shira Sadler MD Primary Care Provider Active Gale Reyez APRN-GRAIN OPERATOR-C Attending Provider Active Team Status: Inactive Member Role Status Dates Shira Sadler MD Attending Provider Active St art: July 12, 2023 End: July 12, 2023 Team Status: Inactive Member Role Status Leena Sadler MD Primary Care Provider Active Start: August 13, 2023 End: August 13, 2023 Rigo Chance MD Attending Provider Active S tart: August 13, 2023 End: August 13, 2023 Team Status: Active Member Role Status Leena Sadler MD Primary Care Provider Active Start: August 13, 2023 Rigo Chance MD Attending Provider, Other Provider Active Start: August 13, 2023 Team Status: Inactive Member Role Status Dates Shira Sadler MD Primary Care Provider Active Start: September 26, 2023 End: September 26, 2023 Jorge L Singh APRN Attending Provider Active Start: September 26, 2023 End: September 26, 2023 Team Status: Inactive Member Role Status Dates Shira Sadler MD Primary Care Provider Active Start: October 01, 2023 End: October 01, 2023 Marcos Weinberg MD Attending Provider Active Sta rt: October 01, 2023 End: October 01, 2023 Team Status: Active Member Role Status Dates Shira Sadler MD Primary Care Provider Active Start: October 02, 2023 SHAYNA Perdomo Attending Provider Active Start : October 02, 2023 Team Status: Inactive Member Role Status Leena Sadler MD Primary Care Provider Active Start: November 12, 2023 End: November 12, 2023 Travis Sadler MD Attending Provider Active Star t: November 12, 2023 End: November 12, 2023 Team Status: Inactive Member Role Status Leena Sadler MD Primary Care Provider Active Start: November 13, 2023 End: November 13, 2023 Travis Sadler MD Attending Provider Active Star t: November 13, 2023 End: November 13, 2023 Team Status: Inactive Member Role Status Leena Sadler MD Primary Care Provider Active Start: December 11, 2023 End: December 11, 2023 Jorge L Singh APRN Attending Provider Active Start: December 11, 2023 End: December 11, 2023 Team Status: Inactive Member Role Status Leena Sadler MD Primary Care Provider Active Start: December 20, 2023 End: December 20, 2023 Travis Sadler MD Attending Provider Active Star t: December 20, 2023 End: December 20, 2023 Team Status: Inactive Member Role Status Leena Sadler MD Primary Care Provider Active Start: January 17, 2024 End: January 17, 2024 Ester Knox APRN Attending Provider Active Start: January 17, 2024 End: January 17, 2024 Team Status: Inactive Member Role Status Leena Sadler MD Primary Care Provider Active Start: February 07, 2024 End: February 07, 2024 Jorge L Singh APRN Attending Provider Active Start: February 07, 2024 End: February 07, 2024 Team Status: Inactive Member Role Status Leena Sadler MD Primary Care Provider Active Start: February 08, 2024 End: February 08, 2024 Ester Knox APRN Attending Provider Active Start: February 08, 2024 End: February 08, 2024 Team Status: Inactive Member Role Status Leena Sadler MD Primary Care Provide r, Attending Provider Active Start: February 11, 2024 End: February 11, 2024 Team Status: Inactive Member Role Status Leena Sadler MD Primary Care Provider Active Start: February 21, 2024 End: February 21, 2024 Esetr Knox APRN Attending Provider Active Start: February 21, 2024 End: February 21, 2024 Goals (unrecognized section and content) Goals may be documented in a n alternate sectionNo InformationNo InformationNo InformationGoals may be documented in an alternate sectionNo InformationNo InformationNo InformationNo InformationGoals may be documented in an alternate sectionNo InformationGoals may be documented in an alternate sectionGoals may be documented in an alternate sectionGoals may be documented in an alternate sectionGoals may be documented in an alternate sectionGoals may be documented in an alternate sectionGoals may be documented in an alternate sectionGoals may be documented in an alternate sectionGoals may be documented in an alternate section REASON FOR VISIT (unrecogniz ed section and content) yearly f/u w/MRI in pacsNEW MRI results test done 12/03/[address] [facility] paperworklabsrefillRefillsMAIL PPW FOR RECORDS PERTAINING TO PATIENTS WHO ARE OR HAVE BEEN ENROLLED IN A CHEMICAL DEPENDENCY/SUBSTANCEABUSE PROGRAM, SOME INFORMATION MAY BE OMITTED. This clinical summary was aggregated from multiple sources. Caution should be exercised in using it in the provision of clinical care. This summary normalizes information from multiple sources, and as a consequence, information in this document may materially change the coding, format and clinical context of patient data. In addition, data may be omitted in some cases. CLINICAL DECISIONS SHOULD BE BASED ON THE PRIMARY CLINICAL RECORDS. [employer] [facility] provides no warranty or guarantee of the accuracy or completeness of information in this document.
[2024-03-19 08:35] VITALS: BP 122/60; PULSE 65; O2SAT 98
== END 2024-03-19 09:40 | disposition home or self-care (01) ==
LOC: VC 07:55
PROVIDERS: PCP Radiology Diagnostic Radiology; Visit Provider Radiology Diagnostic Radiology
DX: I83.813 Varicose veins of bilateral lower extremities with pain (principal)
CPT/HCPCS: 36478

== ENCOUNTER 2024-03-26 07:47 | Outpatient (OUT) | payer BC, SELFPAY ==
--- NOTE | 2024-03-26 07:23 | VEINCLINIC_ITS ---
Vital Signs 03/26/24 08:05 Height 5 ft 7 in Weight 86 kg BMI 29.7 Varicose Veins Patient in today for follow up ultrasound of left lower extremity following EVLT of left GSV completed on 03/19/24. Saleem Webb MD personally performed the services described in this documentation, as scribed by Desi Rees RDMS in my presence and it is both accurate and complete. Desi Webb RDMS, am scribing for, and in the presence of, Dr. Saleem Blackman and in the presence of the patient. thigh: bilateral, knee: bilateral, calf: bilateral, ankle: bilateral and [place]: bilateral aching, cramping, intermittent and tender 8 5 years Worsened in recent months: Yes standing and walking elevating extremities Reports fatigue, heaviness, limb pain and leg edema History of lower extremity trauma: No Superficial thrombophlebitis: No Family history of varicose veins: yes Has patient had previous lower extremity venous surgery: No Patient has previously received the following treatment(s) for lower extremity varicose veins: Reports none Does patient have a history of : no Does patient intend to have future pregnancies: no Has patient had lower extremity venous scan with relux testing: Yes Support hose used: Yes Problems walking or doing physical activity: Yes How does it affect you: Unable to walk long distances, effects work requirements standing Do you walk much: Yes Do you stand much: Yes Review of Systems ROS Narrative Saleem Webb MD personally performed the services described in this documentation, as scribed by Desi Rees RDMS in my presence and it is both accurate and complete. Desi Webb RDMS, am scribing for, and in the presence of, Dr. Saleem Blackman and in the presence of the patient. Status of ROS 10 or more systems reviewed and unremark able except as noted in history and below Cardiovascular Reports: edema and swelling of feet/ankles Musculoskeletal Reports: extremity pain, extremity swelling, joint pain, joint swelling and muscle cramps Integumentary/Breast Reports: itching, skin pain, skin tenderness and skin swelling [facility] Medical History (Updated 03/26/24 @ 07:31 by Desi Rees) Phlebitis and thrombophlebitis of superficial vessels of left lower extremity ?I80.02 - Phlebitis and thrombophlebitis of superficial vessels of left lower extremity (ICD-10) FH: cholecystectomy ?Z83.79 - Family history of other diseases of the digestive system (ICD-10) Depression ?F32.A - Depression, unspecified (ICD-10) Hypercholesteremia ?E78.00 - Pure hypercholesterolemia, unspecified (ICD-10) Hypertension ?I10 - Essential (primary) hypertension (ICD-10) Pain due to varicose veins of both lower extremities ?I83.813 - Varicose veins of bilateral lower extremities with pain (ICD-10) Surgical History (Updated 03/19/24 @ 09:33 by Ricki Horowitz) Status post laser ablation of incompetent vein ?Z98.890 - Other specified postprocedural states (ICD-10) History of tonsillectomy ?Z90.89 - Acquired absence of other organs (ICD-10) History of appendectomy ?Z90.49 - Acquired absence of other specified parts of digestive tract (ICD- 10) Family History (Updated 03/04/24 @ 08:30 by Annia Olson RN) Mother Family history of CHF (congestive heart failure) Family history of cancer Family history of hypertension Family history of myocardial infarction Family history of stroke Uncle Family history of CHF (congestive heart failure) Father Family history of cancer Family history of hypertension Sister Family history of diabetes mellitus Family history of hypertension Social History (Updated 03/04/24 @ 08:31 by Annia Olson RN) Within the past year, how often did you have a drink containing alcohol: never Score interpretation: A score less than 3 is consistent with normal alcohol co nsumption. Smoking status: Never smoker Non-prescribed substance use: former substance user Meds Home Medications and Allergies Home Medications ?Medication ?Instructions ?Recorded ?Confirmed ?Type duloxetine 60 mg capsule,delayed 60 mg PO DAILY 03/04/24 03/04/24 History release (Cymbalta) gabapentin 600 mg tablet 600 mg PO TID 03/04/24 03/04/24 History multivit with min-folic 1 tab PO DAILY 03/04/24 03/04/24 History acid-lutein 400 mcg-250 mcg chewable tablet (Centrum Silver) nortriptyline 10 mg capsule 10 mg PO DAILY 03/04/24 03/04/24 History (Pamelor) rosuvastatin 20 mg tablet 20 mg PO DAILY 03/04/24 03/04/24 History Allergies Allergy/AdvReac Type Severity Reaction Status Date / Time No Known Drug Allergies Allergy Unverified 03/04/24 08:34 Exam Narrative Exam Narrative: Saleem Webb MD personally performed the services described in this documentation, as scribed by Desi Rees RDMS in my presence and it is both accurate and complete. Desi Webb RDMS, am scribing for, and in the presence of, Dr. Saleem Blackman and in the presence of the patient. 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 Saleem Webb MD personally performed the services described in this documentation, as scribed by Desi Rees RDMS in my presence and it is both accurate and complete. Desi Webb RDMS, am scribing for, and in the presence of, Dr. Saleem Blackman and in the presence of the patient. Assessment and Plan Assessment and Plan (1) Phlebitis and thrombophlebitis of superficial vessels of left lower extremity: Plan Plan is for patient to return for EVLT of right GSV on 04/03/24. Saleem Webb MD personally performed the services described in this documentation, as scribed by Desi Rees RDMS in my presence and it is both accurate and complete. Desi Webb RDMS, am scribing for, and in the presence of, Dr. Saleem Blackman and in the presence of the patient.
--- OUTSIDE RECORDS SUMMARY | 2024-03-26 07:50 | XMS_ITS | CCD ---
Author Organization [facility] CliniSyal Care Team Providers Care Camera Tuning Engineer Name Role Phone Juan Miguel Campbell Unavailable Unavailable NONE, XXXX Unavailable Unavailable Juan Miguel Campbell Unavailable Unavailable NONE, XXXX Unavailable Unavailable MD Shira Sadler Primary Care Provider MD John Nath Attending Provider John Nath Unavailable Shira Sadler Unavailable DR SHIRA SADLER Admitting Unavailable VIKTORIYA, DR SHIRA Gonzalez Attending Unavailable DR SHIRA SADLER Primary Care Unavailable NILSA, DR ARIEL Dyer Consulting Unavailable DR SHIRA SADLER Consulting Unavailable MD Shira Sadler Primary Care Provider MD Travis Sadler Attending Provider MD Shira Sadler Primary Care Provider GABBY Reyez-MUSHROOM PRESS OPERATOR-Ophelia Gonzalez Attending Provider Rigo Chance Unavailable MD Shira Sadler Primary Care Provider MD Rigo Chance Attending Provider MD Shira Sadler Primary Care Provider MD Rigo Chance Attending Provider MD Marcos Weinberg Attending Provider MD Shira Sadler Primary Care Provider MD Travis Sadler Attending Provider [phone] MARIANNA TORRES Attending Unavailable TRAVIS SADLER Referring Unavailable MD Shira Sadler Primary Care Provider GABBY Knox Attending Provider Travis Sadler Admitting Unavailable Travis Sadler Attending Unavailable Shira Sadler Primary Care Unavailable Ester Knox Admitting Unavailable Ester Knox Attending Unavailable Shira Sadler Primary Care Unavailable Gale Reyez Admitting Unavailable Gale Reyez Attending Unavailable Shira Sdaler Primary Care Unavailable Rigo Chance Admitting Unavailable Rigo Chance Attending Unavailable Shira Sadler Primary Care Unavailable Marcos Weinberg Admitting Unavailable Marcos Weinberg Attending Unavailable Shira Sadler Primary Care Unavailable MD Shira Sadler Primary Care Provider Allergies Allergy Classification Reported Allergen(s) Allergy Type Date of Onset Reaction(s) Facility (4 sources) patient allergy list reviewed by nurse or physicia Propensity to adverse reactions 7 Comment:Done [facility] Other (4 sources) Allergies Reconciled Propensity to adverse reactions Unknown [facility] Other Medications Current Medications Medication Drug Class(es) [...] 2023 11:37am take 1 capsule by mo [facility] three times daily Gabapentin 300 MG [...] BY MOUTH AT BEDTIME for 90 Active Db-Mth-Hhdvs Acid-Lutein (Centrum Silver) 400-250 mcg Tablet,Chewable (14 sources) Start: 06-19-2019 take 1 tablet by mouth once daily Lk-Jls-Pvcuq Acid-Lutein (Centrum Silver) 400-250 mcg Tablet,Chewable Active 1 TAB PO Daily June 19, 2019 9:17am Start: 06-19-2019 take 1 tablet by karis th once daily Sl-Uho-Wqkub Acid-Lutein (Centrum Silver) 400-250 mcg Tablet,Chewable Active 1 TAB PO Daily June 19, 2019 12:00am Start: 06-19-2019 take 1 tablet by karis th once daily Lq-Ngl-Atnxj Acid-Lutein (Centrum Silver) 400-250 mcg Tablet,Chewable Active [...] Start: 03-02-2023 take 1 capsule by mo [facility] every twenty-four hours Nortriptyline HCl 10 MG 1 capsule Orally Once a day for 90 days Feb, Active Winona 3 1000 MG (7 sources) take 1 capsule by mouth once daily Winona 3 1000 MG 1 capsule Orally Once a day Active Winona 3-Sna-Wib-Fish Oil (Fish Oil) 360-1,200 mg Capsule,Delayed Release(Dr/Ec) (14 sources) Start: 06-19-2019 take 360-1200 mg by mouth once daily Winona 4-Zoj-Nuw-Fish Oil (Fish Oil) 360-1,200 mg Capsule,Delayed Release(Dr/Ec) Active 1 CAP PO Daily June 19, 2019 9:17am Start: 06-19-2019 End: 08-13-2023 take 360-1200 mg by mouth once daily Winona 9-Acb-Zbl-Fish Oil (Fish Oil) 360-1,200 mg Capsule,Delayed Release(Dr/Ec) Discontinued 1 CAP PO Daily June 19, 2019 1:00am August 13, 2023 11:36am Start: 06-19-2019 End: 08-13-2023 take 360-1200 mg by mouth once daily Winona 3-Ewo-Wnu-Fish Oil (Fish Oil) 360-1,200 mg Capsule,Delayed Release(Dr/Ec) Discontinued 1 CAP PO Daily June 19, 2019 12:00am August 13, 2023 10:36am Start: 06-19-2019 take 360-1200 mg by mouth once daily Winona 4-Rqz-Xhw-Fish Oil (Fish Oil) 360-1,200 mg Capsule,Delayed Release(Dr/Ec) Active 1 CAP PO Daily June 19, 2019 12:00am Start: 06-19-2019 take 360-1200 mg by mouth once daily Winona 9-Rbn-Hzq-Fish Oil (Fish Oil) 360-1,200 mg Capsule,Delayed Release(Dr/Ec) [...] 2 tablets Orally Once a day Active Joselyn's Wort (14 sources) Start: 06-19-2019 take 600 mg by mouth once daily Vickery's Wort Active 600 MG PO Daily June 19, 2019 9:17am Start: 06-19-2019 End: 08-13-2023 take 600 mg by mouth once daily Vickery's Wort Discontinued 600 MG PO Daily June 19, 2019 1:00am August 13, 2023 11:36am Start: 06-19-2019 End: 08-13-2023 take 600 mg by mouth once daily Joselyn's Wort Discontinued 600 MG PO Daily June 19, 2019 12:00am August 13, 2023 10:36am Start: 06-19-2019 take 600 mg by mouth once daily Vickery's Wort Active 600 MG PO Daily June 19, 2019 12:00am Start: 06-19-2019 take 600 mg by mouth once daily Vickery's Wort Active 600 MG PO Daily June [...] on 02-08-2024 Creatinine [Mass/Vol] 0.7 mg/dL 0.6-1.3 [facility] Comment on above: ER/ESD physician is notified/shown all ISTAT results.Critical values may be confirmed by laboratory testing ifdeemed necessary by ER attending doctor. MR lumbar spine wo/w conon 0 02-08-2024 MR lumbar spine wo/w con [facility] Main [place] [address] [place], [place] [id number] MRI Report Signed Patient: Melodie Corbin MR#: [id number] : 1965 Acct:[id number] Age/Sex: 59 / F ADM Date: 02/08/24 Loc: MR Room: Type: [facility] Attending Dr: Ester Knox APRN Copies [...] Romeo Mason M.D.02/08/2024 3:22 PM Dictation Location: [place] [address] Transcribed By: [facility] 02/08/24 1522 Dictated By: Romeo Mason II, MD 02/08/24 1510 Signed By: 02/08/24 1522 Normal [facility] No Panel InformationOrdered By: Ester Knox on 02-08-2024 Bedside Estimated GFR (eGFR) > 60.0 [facility] XR lumbar spine AP/LAT/FLX/E XTon 02-08-2024 XR lumbar spine AP/LAT/FLX/EXT [facility] [place] [address] XRay Report Signed Patient: Melodie Corbin MR#: [id number] : 1965 Acct:[id number] Age/Sex: 59 / F ADM Date: 02/08/24 Loc: MR [facility]: [facility] Attending Dr: Ester Knox APRN Copies to: [...] Calderon Barreto M.D.02/08/2024 4:02 PM Dictation Location: [place] [address] Transcribed By: [facility] 02/08/24 1602 Dictated By: Calderon Barreto DO 02/08/24 1601 Signed By: 02/08/24 1602 Normal [facility] MR head/brain wo/w conon MR head/brain wo/w con [facility] [place] [address] MRI Report Signed Patient: Melodie Corbin MR#: [id number] : 1965 Acct:[id number] Age/Sex: 58 / F ADM Date: 11/12/23 Loc: Room: Type: [facility] Attending Dr: Travis Sadler MD Copies [...] Romeo Mason M.D.11/12/2023 1:16 PM Dictation Location: [place] [address] Transcribed By: [facility] 11/12/23 1316 Dictated By: Romeo Mason II, MD 11/12/23 1308 Signed By: 11/12/23 1316 Normal [facility] MR lumbar spine wo conon MR lumbar spine wo con [facility] [place] [address] MRI Report Signed Patient: Melodie Corbin MR#: [id number] : 1965 Acct:[id number] Age/Sex: 58 / F ADM Date: 10/01/23 Loc: MR Room: Type: [facility] Attending Dr: Marcos Weinberg MD Copies [...] Romeo Mason M.D.10/01/2023 12:19 PM Dictation Location: [place] [address] Transcribed By: ADDIE 10/01/23 1219 Dictated By: Romeo Mason II, MD 10/01/23 1206 Signed By: 10/01/23 1219 Normal [facility] XR hips BI 4V adulton 2023 XR hips BI 4V adult [facility] Main [place] [id number] XRay Report Signed Patient: Melodie Corbin MR#: [id number] : 1965 Acct:[id number] Age/Sex: 58 / F ADM Date: 10/01/23 Loc: Room: Type: [facility] Attending Dr: Marcos Weinberg MD Copies [...] Garg Jr., D.OChristiano10/01/2023 10:45 AM Dictation Location: [place] [address] Transcribed By: [facility] 10/01/23 1045 Dictated By: Brandon Garg Jr, DO 10/01/23 1044 Signed By: 10/01/23 1045 Normal [facility] XR pre/post mri xrayon 05-10 XR pre/post mri xray [facility] Main [place] [id number] MRI Report Signed Patient: Melodie Corbin MR#: [id number] : 1965 Acct:[id number] Age/Sex: 58 / F ADM Date: 05/10/23 Loc: [facility] Room: Type: [facility] CLI Attending Dr: Gale RIVAS Copies to: ROB Easton Ordering Provider: ROB Easton Date of Service: 05/10/23 MR/MR lumbar spine wo con: M46.96 ([id number]) XR/XR pre/post mri xray: M46.96 MR lumbar [...] Romeo Mason M.D.05/10/2023 3:20 PM Dictation Location: [place] [address] Transcribed By: [facility] 05/10/23 1520 Dictated By: Romeo Mason II, MD 05/10/23 1512 Signed By: 05/10/23 1520 Normal [facility] MG MAMM SCREEN 3D SHERRI CADon 10-16-2022 MG MAMM SCREEN 3D SHERRI CAD Patient: MELODIE CORBIN Exam Date: 10/16/2022 : 1965 Gender:F Ordering : DR SHIRA SADLER M.D. Admission #: [id number] Family : Order #: [id number] CLICK HERE TO VIEW EXAM RADIOLOGY REPORT PROCEDURE: MAMMOGRAM SCREENING 3D BILATERAL CAD COMPARISON: None. INDICATIONS: Screening mammography Calculator Name NCI Breast Cancer Risk Assessment Tool 5 Year Breast Cancer Risk 1.80% Lifetime Breast Cancer Risk 10.00% Personal Breast Cancer No Personal Ovarian Cancer No Treatments None Family Cancers Father with prostate cancer at age 78. LOCATION: [facility] BREAST COMPOSITION: Heterogeneously dense,which may obscure small [...] M.D. on 10/16/2022 at 11:20 Normal [facility] Progress Note-Physicianon Protein mass conc Patient: MELODIE CORBIN Age: 53 years Sex: Female : 1965 Associated Diagnoses: None Author: Juan Miguel Campbell DO Subjective Subjective: Patient presents Advanced Image Enhancement for the first evaluation of an injury [...] basis only. Diagnosis: Contusion of left foot ([id number] S90.32XA, Working, Medical). Normal [facility] Comment on above: Result Comment: Elec tronically Signed By: Juan Miguel Campbell DO\.br\Date and Time Signed: 04/02/18 13:57 EDT Vital Signs Date Time Vital Sign Value Performing Clinician Facility 02-21-2024 09:23-0400 Body height 175.26 cm MD Shira Sadler Work Phone: [facility] 02-21-2024 09:23-0400 Body mass index (BMI) [Ratio] 30.3 kg/m2 MD Shira Sadler Work Phone: [facility] 02-21-2024 09:23-0400 Body weight 93.15 kg MD Shira Sadler Work Phone: [facility] 02-11-2024 13:45-0400 Body height 175.26 cm MD Shira Sadler Work Phone: [facility] 02-11-2024 13:45-0400 Body mass index (BMI) [Ratio] 29.8 kg/m2 MD Shira Sadler Work Phone: [facility] 02-11-2024 13:45-0400 Body weight 91.62 kg MD Shira Sadler Work Phone: [facility] 02-11-2024 13:45-0400 Diastolic blood pressure 81 mm[Hg] MD Shira Sadler Work Phone: [facility] 02-11-2024 13:45-0400 Heart rate 58 /min MD Shira Sadler Work Phone: [facility] 02-11-2024 13:45-0400 Systolic blood pressure 177 mm[Hg] MD Shira Sadler Work Phone: [facility] 02-08-2024 06:43-0400 Body height 175.26 cm MD Shira Sadler Work Phone: [facility] 02-08-2024 06:43-0400 Body weight 86.18 kg MD Shira Sadler Work Phone: [facility] 02-07-2024 09:41-0400 Body height 167.64 cm MD Shira Sadler Work Phone: [facility] 02-07-2024 09:41-0400 Body mass index (BMI) [Ratio] 32.7 kg/m2 MD Shira Sadler Work Phone: [facility] 02-07-2024 09:41-0400 Body weight 92 kg MD Shira Sadler Work Phone: [facility] 01-17-2024 09:53-0400 Body weight 92.07 kg MD Shira Sadler Work Phone: [facility] 12-20-2023 11:37-0400 Body height 167.64 cm MD Shira Sadler Work Phone: [facility] 12-20-2023 11:37-0400 Body mass index (BMI) [Ratio] 32.3 kg/m2 MD Shira Sadler Work Phone: [facility] 12-20-2023 11:37-0400 Body weight 90.71 kg MD Shira Sadler Work Phone: [facility] 12-11-2023 09:33-0400 Body height 167.64 cm MD Shira Sadler Work Phone: [facility] 12-11-2023 09:33-0400 Body mass index (BMI) [Ratio] 32.3 kg/m2 MD Shira Sadler Work Phone: [facility] 12-11-2023 09:33-0400 Body weight 90.71 kg MD Shira Sadler Work Phone: [facility] 12-11-2023 09:33-0400 Diastolic blood pressure 93 mm[Hg] MD Shira Sadler Work Phone: [facility] 12-11-2023 09:33-0400 Heart rate 61 /min MD Shira Sadler Work Phone: [facility] 12-11-2023 09:33-0400 Systolic blood pressure 145 mm[Hg] MD Shira Sadler Work Phone: [facility] 11-13-2023 09:39-0400 Body height 167.64 cm MD Shira Sadler Work Phone: [facility] 11-13-2023 09:39-0400 Body mass index (BMI) [Ratio] 32.1 kg/m2 MD Shira Sadler Work Phone: [facility] 11-13-2023 09:39-0400 Body weight 90.26 kg MD Shira Sadler Work Phone: [facility] 11-12-2023 07:25-0400 Body height 167.64 cm MD Shira Sadler Work Phone: [facility] 11-12-2023 07:25-0400 Body weight 86.18 kg MD Shira Sadler Work Phone: [facility] 09-26-2023 11:17-0400 Body height 167.64 cm MD Shira Sadler Work Phone: [facility] 09-26-2023 10:56-0400 Body height 167.64 cm MD Shira Sadler Work Phone: [facility] 09-26-2023 10:56-0400 Body mass index (BMI) [Ratio] 31.4 kg/m2 MD Shira Sadler Work Phone: [facility] 09-26-2023 10:56-0400 Body weight 88.45 kg MD Shira Sadler Work Phone: [facility] 08-13-2023 11:40-0500 Diastolic blood pressure 68 mm[Hg] MD Shira Sadler Work Phone: [facility] 08-13-2023 11:40-0500 Heart rate 54 /min MD Shira Sadler Work Phone: [facility] 08-13-2023 11:40-0500 Respiratory rate 16 /min MD Shira Sadler Work Phone: [facility] 08-13-2023 11:40-0500 SaO2% (BldA) [Mass fraction] 100 % MD Shira Sadler Work Phone: [facility] 08-13-2023 11:40-0500 Systolic blood pressure 145 mm[Hg] MD Shira Sadler Work Phone: [facility] 08-13-2023 10:39-0500 Body height 167.64 cm MD Shira Sadler Work Phone: [facility] 08-13-2023 10:39-0500 Body temperature 98.5 [degF] MD Shira Sadler Work Phone: [facility] 08-13-2023 10:39-0500 Body weight 88.45 kg MD Shira Sadler Work Phone: [facility] 07-12-2023 10:00-0500 Body height 170.18 cm MD Shira Sadler Work Phone: [facility] 07-12-2023 10:00-0500 Body weight 89.9 kg MD Shira Sadler Work Phone: [facility] 07-12-2023 10:00-0500 Diastolic blood pressure 89 mm[Hg] MD Shira Sadler Work Phone: [facility] 07-12-2023 10:00-0500 Systolic blood pressure 141 mm[Hg] MD Shira Sadler Work Phone: [facility] 01-18-2023 13:15-0400 Body height 170.18 cm Shira Sadler Other [employer] Other 01-18-2023 13:15-0400 Body mass index (BMI) [Ratio] 29.75 kg/m2 Shira Sadler Other [facility] [facility] [employer] Other 01-18-2023 13:15-0400 Body weight 86.18 kg Shira Sadler Other [facility] Other 01-18-2023 13:15-0400 Diastolic blood pressure 87 mm[Hg] Shira Sadler Other [employer] Other 01-18-2023 13:15-0400 Systolic blood pressure 147 mm[Hg] Shira Sadler Other [facility] Other 11-01-2022 07:13-0400 Body height 170.18 cm MD Shira Sadler Work Phone: [facility] 11-01-2022 07:13-0400 Body weight 86.18 kg MD Shira Sadler Work Phone: [facility] 12-05-2021 11:00-0400 Body height 170.18 cm John Nath Other [facility] Other 12-05-2021 11:00-0400 Body mass index (BMI) [Ratio] 29.13 kg/m2 John Nath Other [facility] Other 12-05-2021 11:00-0400 Body weight 84.37 kg John Nath Other [facility] Other 11-16-2021 11:45-0400 Body height 170.18 cm John Nath Other [facility] Other 11-16-2021 11:45-0400 Body mass index (BMI) [Ratio] 29.44 kg/m2 John Nath Other [facility] Other 11-16-2021 11:45-0400 Body weight 85.28 kg John Nath Other [facility] [employer] Other 11-04-2021 07:54-0400 Body height 170.18 cm MD Shira Sadler Work Phone: [facility] 11-04-2021 07:54-0400 Body weight 87.08 kg MD Shira Sadler Work Phone: [facility] Encounters Encounter Date Encounter Type Care Provider Facility Start: 02-21-2024 End: 02-21-2024 ambulatory MD Shira Sadler Work Phone: [facility] Work Phone: Start: 02-21-2024 End: 02-21-2024 Patient encounter procedure MD Shira Sadler Work Phone: [facility] Work Phone: Start: 02-11-2024 End: 02-11-2024 Patient encounter procedure MD Shira Sadler Work Phone: [facility] Work Phone: Start: 02-08-2024 End: 02-08-2024 Patient encounter procedure MD Shira Sadler Work Phone: [facility] [place] Work Phone: Start: 02-08-2024 End: 02-08-2024 ambulatory MD Shira Sadler Work Phone: [facility] Work Phone: Start: 02-07-2024 End: 02-07-2024 ambulatory MD Shira Sadler Work Phone: [facility] Work Phone: Start: 02-07-2024 End: 02-07-2024 Patient encounter procedure MD Shira Sadler Work Phone: [facility] Work Phone: Start: 01-17-2024 End: 01-17-2024 ambulatory MD Shira Sadler Work Phone: [facility] Work Phone: Start: 01-17-2024 End: 01-17-2024 Patient encounter procedure MD Shira Sadler Work Phone: [facility] Neuro[facility] Work Phone: Start: 12-20-2023 End: 12-20-2023 ambulatory MD Shira Sadler Work Phone: [facility] Work Phone: Start: 12-20-2023 End: 12-20-2023 Patient encounter procedure MD Shira Sadler Work Phone: [facility] Neurosurgery Work Phone: Start: 12-13-2023 End: 12-13-2023 ambulatory MARIANNA TORRES Not Available Start: 12-11-2023 End: 12-11-2023 ambulatory MD Shira Sadler Work Phone: [facility] Work Phone: Start: 12-11-2023 End: 12-11-2023 Patient encounter procedure MD Shira Sadler Work Phone: [facility] Gastroenterology Work Phone: Start: 11-13-2023 End: 11-13-2023 ambulatory MD Shira Sadler Work Phone: [facility] Work Phone: Start: 11-13-2023 End: 11-13-2023 Patient encounter procedure MD Shira Sadler Work Phone: [facility] Neurosurgery Work Phone: Start: 11-12-2023 End: 11-12-2023 Patient encounter procedure MD Shira Sadler Work Phone: [facility] [place] Work Phone: Start: 11-12-2023 End: 11-12-2023 ambulatory MD Shira Sadler Work Phone: [facility] Work Phone: Start: 10-02-2023 Non-patient / Non-visit MD Shira Sadler Work Phone: [facility] Work Phone: Start: 10-01-2023 End: 10-01-2023 Patient encounter procedure MD Shira Sadler Work Phone: [facility] [place] Work Phone: Start: 10-01-2023 End: 10-01-2023 ambulatory MD Shira Sadler Work Phone: [facility] Work Phone: Start: 09-26-2023 End: 09-26-2023 ambulatory MD Shira Sadler Work Phone: [facility] Work Phone: Start: 09-26-2023 End: 09-26-2023 Patient encounter procedure MD Shira Sadler Work Phone: [facility] Gastroenterology Work Phone: Start: 08-13-2023 Non-patient / Non-visit MD Shira Sadler Work Phone: [facility] Work Phone: Start: 08-13-2023 End: 08-13-2023 Admission to same day surgery center MD Shira Sadler Work Phone: [facility] Work Phone: Start: 08-13-2023 End: 08-13-2023 ambulatory MD Shira Sadler Work Phone: [facility] Work Phone: Start: 07-17-2023 End: 07-17-2023 ambulatory Rigo Chance Other [facility] Other Start: 07-17-2023 Telephone encounter Rigo Chance [employer] Start: 07-12-2023 End: 07-12-2023 Patient encounter procedure MD Shira Sadler Work Phone: [facility]- Start: 05-10-2023 End: 05-10-2023 Patient encounter procedure MD Shira Sadler Work Phone: [facility] [address] Work Phone: Start: 05-10-2023 End: 05-10-2023 ambulatory MD Shira Sadler Work Phone: [facility] Work Phone: Start: 04-24-2023 End: 04-24-2023 ambulatory Shira Sadler Other [facility] Other Start: 04-24-2023 Telephone encounter Shira Sadler [facility] Start: 03-02-2023 End: 03-02-2023 ambulatory Shira Sadler Other [facility] Other Start: 03-02-2023 Telephone encounter Shira Sadler [facility] Start: 02-07-2023 End: 02-07-2023 ambulatory Shira Sadler Other [facility] Other Start: 02-07-2023 Telephone encounter Shira Sadler [facility] Start: 01-18-2023 End: 01-18-2023 ambulatory Shira Sadler Other [facility] Other Start: 01-18-2023 Office outpatient visit 25 minutes Shira Sadler [facility] Start: 11-01-2022 End: 11-01-2022 ambulatory MD Shira Sadler Work Phone: [facility] Work Phone: Start: 11-01-2022 End: 11-01-2022 Patient encounter procedure MD Shira Sadler Work Phone: [facility] [place] Work Phone: Start: 10-16-2022 End: 10-17-[address] SHIRA SADLER Facility: Start: 10-06-2022 End: 10-06-2022 ambulatory Shira Sadler Other [facility] Other Start: 10-06-2022 Telephone encounter Shira Sadler [facility] Start: 12-05-2021 End: 12-05-2021 ambulatory John Nath Other [facility] Other Start: 12-05-2021 Office outpatient visit 15 minutes John Nath [facility] Start: 12-03-2021 End: 12-03-2021 Patient encounter procedure MD Shira Sadler Work Phone: [facility] Start: 11-16-2021 End: 11-16-2021 ambulatory John Nath Other [facility] Other Start: 11-16-2021 Office outpatient visit 15 minutes John Nath [facility] Start: 11-04-2021 End: 11-04-2021 Patient encounter procedure MD Shira Sadler Work Phone: [facility] Start: 04-02-2018 Patient encounter Juan Miguel Palacios ity:CD:[id number] Start: 04-02-2018 End: 04-03-2018 Patient encounter Juan Miguel Campbell Facility:[id number] Procedures Date Procedure Procedure Detail Performing Clinician Start: 02-08-2024 MRI of lumbar spine with contrast MD Shira Sadler Work Phone: Start: 02-08-2024 X-ray of lumbar spin e, four views MD Shira Sadler Work Phone: Start: 11-12-2023 MRI of head MD Shira Sadler Work Phone: Start: 10-01-2023 Plain x-ray [...] Activity Detail Author Start: 02-11-2024 Patient referral [facility] Work Phone: Start: 11-13-2023 Patient referral [facility] Work Phone: Start: 08-13-2023 [facility] MR Lumbar spine WO a nd W contrast IV [facility] Patient Education Hemorrhoids (DC) [facility] Work Phone: Patient referral [facility] Work Phone: XR Lumbar spine 4 Views [facility] Immunizations Immunization Date Immunization Notes Care Provider Avinash ortega NEGATED: Highlighted row has not occurred!04-16-2019 influenza, high dose seasonal, preservative-free Patient Objection John Nath Other [facility] Other NEGATED: Highlighted row has not occurred!03-24-2019 influenza, high dose seasonal, preservative-free Patient Objection John Nath Other [employer] Other Payers Date Payer Category Payer Self-pay [id number] 2018 Worker's Compensation [id number] 1965 Unknown [id number] 2.16.84 [id number] 1965 Unknown [id number] 2.16.84 [id number] 1965 Unknown [id number] 2.16.84 [id number] 1959 Unknown [id number] Unknown [id number] 2.16.8 [id number] Unknown [id number] 2.16.8 [id number] Unknown [id number] 2.16.8 [id number] Unknown [id number] 2.16.8 [id number] Unknown [id number] 2.16.8 [id number] Social History Date Type Detail Facility Tobacco smoking status NHIS Unknown if ever smoked [facility] Other Start: 1965 Sex Assigned At Female F [facility] Sex Assigned At Sex Assigned At Bir th [facility] Other Start: 08-13-2023 End: 08-13-2023 Tobacco smoking status NHIS Never smoked tobacco (finding) [facility] Goals Date Patient Goal Desired Activity /State Clinical Notes 11-16-2021 to 12-11-2023 Note Date & Type Note Facility 12-11-2023 Evaluation note Authored December 11, 2023 9:49 am Abdominal cramping, abdomina l pain, 1-2 weekly bowel movements, patient negative for rectal bleeding [facility] Work Phone: 1(728) 358-363202-19-2024 [facility] Evaluation note* Encounter Date Diagnosis Assessment [...] Sadler. Recheck w MRI in September 2023. [facility] Other 04-14-2023 Evaluation note* Encounter Date Diagnosis Assessment Notes Treatment Notes Treatment Clinical Notes Sep, Screening mammogram for breast cancer (ICD-10 - Z12.31) [facility] Other 06-13-2022 Evaluation note* Encounter Date Diagnosis [...] Torres neurology which I think is appropriate. [facility] Other 05-25-2022 Evaluation note* Encounter Date Diagnosis [...] not have meningiomas in her cervical spine. [facility] Other evaluation noteNo assessment information available [facility] Work Phone: Evaluation noteNo InformationNort [employer] Other Evaluation note* Diagnosis Onset Date Resolution Status Constipation acute Hemorrhoids acute [facility] Work Phone: Evaluation note* Diagnosis Onset Date Resolution Status Constipation acute Hemorrhoids acute Irritable bowel syndrome with constipation acute [facility] Work Phone: Evaluation note* Diagnosis Onset Date Resolution Status Constipation acute Hemorrhoids acute Irritable bowel syndrome with constipation acute Meningioma acute [facility] Work Phone: Evaluation note* Diagnosis Onset Date Resolution Status Constipation acute Hemorrhoids acute Irritable bowel syndrome with constipation acute Carpal tunnel syndrome, bilateral acute Meningioma acute Irritable bowel syndrome with constipation acute [facility] Work Phone: History and physical note Author Rigo Chance [facility] August 13, 2023 10:42am Note Date/Time August 13, 2023 10:42am [facility] [address] [place] [address] Gastroenterology H&P Signed Patient: Melodie Corbin MR#: [id number] : 1965 Acct:[id number] Age/Sex: 58 / F Adm Date: 4 Loc: Room: Type: [facility] Attending Dr: Rigo Chance MD Copies to: [...] signed by Rigo Chance MD> 08/13/23 1042 [facility] Work Phone: History general Narrative - Reported* Type Description Date Medical History Hearing loss, left Medical History Acute middle ear effusion, left Medical History hypertension Medical History GERD Medical History migraine headaches Surgical History appendectomy 1980 Surgical History tonsillectomy 1980 Surgical History discectomy 2000 Surgical History breast biopsies Surgical History cholecystectomy 2006 Hospitalization History see sx history [facility] Other History general Narrative - Reported* Type Description Date Medical History Hearing loss, left Medical History Acute middle ear effusion, left Medical History hypertension Medical History GERD Medical History migraine headaches Surgical History appendectomy 1981 Surgical History tonsillectomy 1980 Surgical History discectomy 2000 Surgical History breast biopsies Surgical History cholecystectomy 2006 Surgical History Back injections 05/2023 Hospitalization History see sx history [facility] Other Hospital Discharge instructionsAmbulatory Orders* Referral to Neurology Time Frame: 11/13/23, Location: None Selected [facility] Work Phone: Summary Purpose Family History Relationship [...] DATE CREATED AUTHOR AUTHOR'S ORGANIZ ATION 12/14/2023 [facility] EPIC DATE CREATED AUTHOR AUTHOR'S ORGANIZ ATION 02/10/2024 [facility] Care Teams (unrecognized sec tion [...] MD Primary Care Provider Active Gale Reyez APRN-MUSHROOM PRESS OPERATOR-C Attending Provider Active Team Status: Inactive [...] February 21, 2024 End: February 21, 2024 Ester Knox APRN Attending Provider Active [...] pacsNEW MRI results test done 12/03/21 at [facility] paperworklabsrefillRefillsMAIL PPW FOR RECORDS PERTAINING TO PATIENTS [...] BE BASED ON THE PRIMARY CLINICAL RECORDS. [facility]. provides no warranty or guarantee of the accuracy or completeness of information in this document.
--- NOTE | 2024-03-26 07:53 | VEIN_ITS ---
Patient Name: WILFRED CORBIN MR#: [id number] : 1965 Exam Date: 03/26/2024 Ordering Doctor: DR SHIVA ASH M.D. RADIOLOGY REPORT PROCEDURE: VC EXT VENOUS LT LIMITED COMPARISON: None. INDICATIONS: I80.02 - Phlebitis and thrombophlebitis of superficial veins left leg TECHNIQUE: Lower extremity mariee scale and Duplex Doppler evaluation of the deep venous system from the inguinal ligament through the calf veins. FINDINGS: REGION: Left lower extremity. THROMBI: Negative for DVT. Heat induced thrombus in left SFJ 7.2 mm from SFJ and extends to mid thigh. COMPRESSIBILITY: Non-compressible segments corresponding to thrombus FLOW: Areas of no flow corresponding to thrombus CONCLUSION: Post ablation occlusion of the left great saphenous vein with heat induced thrombus 7.2 mm from the saphenofemoral junction. Dictated by: Saleem Blackman MD on 03/26/2024 at 08:30 Approved by: Saleem Blackman MD on 03/26/2024 at 08:31
--- NOTE | 2024-03-26 07:53 | VEIN_ITS ---
Patient Name: WILFRED CORBIN MR#: [id number] : 1965 Exam Date: 03/26/2024 Ordering Doctor: DR SHIVA ASH M.D. RADIOLOGY REPORT PROCEDURE: FACILITY EST LMTD [facility] - OFFICE VISIT FOLLOW UP COMPARISON: None. PROGRESS NOTES: The patient reports no significant problems following intravenous laser ablation of the left great saphenous vein. The patient did wear her compression stockings and exercise. The patient did not require oral analgesics Physical exam demonstrates 4 areas of bruising in the thigh the largest measuring 10 x 8 cm, mild to moderate. Findings are within normal limits for her procedure. No erythema warmth to suggest cellulitis or thrombophlebitis. No ulceration. The incision is healed. Review of the ultrasound performed the same day demonstrates occlusive thrombus extending throughout the treated left great saphenous vein with heat induced thrombus 7.2 mm from the saphenofemoral junction. Patent epigastric vein. The patient expressed a desire to proceed with treatment of incompetent right great saphenous vein. VEIN/ Facility EST LMTD IMPRESSION: 1. Successful ablation of the left great saphenous vein. 2. Persistent incompetent right great saphenous vein. PLAN: Intravenous laser ablation right great saphenous vein Nurse notes, history and physical were reviewed and confirmed, see attached forms. The nurse was present throughout the physical exam and consultation Dictated by: Saleem Blackman MD on 03/26/2024 at 08:57 Approved by: Saleem Blackman MD on 03/26/2024 at 08:59
[2024-03-26 08:05] VITALS: BMI 29.7
--- NOTE | 2024-03-26 10:07 | W.VEIN ---
Discharge Plan Discharge Disposition: Home, Self-Care Outpatient Diagnostics: VC Endovenous Ablation 1VeinRT (Routine) Timeframe: 1 Month Facility: [facility] - Location: Vein Center Ordered By: Saleem Blackman Follow Up Appointments: 04/03/24 Plan of Treatment: EVLT of right GSV EVLT Tumescent Anesthesia: 500 mL 0.9% NS with 20 mL 1% Lidocaine and 10 mL 8.4% NAHCO3 Buffered Local Anesthesia: 10 mL of 1% Lidocaine Buffered Print Language: Kuwaiti Discharge Date/Time: 03/26/24 10:09
== END 2024-03-26 10:09 | disposition home or self-care (01) ==
PROVIDERS: PCP Radiology Diagnostic Radiology; Visit Provider Radiology Diagnostic Radiology
DX: I80.02 Phlebitis and thrombophlebitis of superficial vessels of left lower extremity (principal)
CPT/HCPCS: 93971; G0463

== ENCOUNTER 2024-04-03 10:38 | Outpatient (OUT) | payer BC, SELFPAY ==
--- NOTE | 2024-04-03 07:51 | V.VEINS.HP ---
Vital Signs 04/03/24 11:13 BP 124/70 BP Location Left Brachial BP Position Sitting BP Cuff Size Adult BP Source Manual Cuff Respiration 18 Pulse 72 Pulse Source Monitor Pulse Oximetry (%) 96 Oxygen Delivery Method Room Air Comment The patient's blood pressure is elevated. Varicose Veins Patient in today for EVLT of right GSV. Ariel Webb MD personally performed the services described in this documentation, as scribed by Annia Olson RN in my presence and it is both accurate and complete. Annia Webb RN, am scribing for, and in the presence of, Dr. Ariel Mota and in the presence of the patient. thigh: bilateral, knee: bilateral, calf: bilateral, ankle: bilateral and mcfar[place]: bilateral aching, cramping, intermittent and tender 8 5 years Worsened in recent months: Yes standing and walking elevating extremities Reports fatigue, heaviness, limb pain and leg edema History of lower extremity trauma: No Superficial thrombophlebitis: No Family history of varicose veins: yes Has patient had previous lower extremity venous surgery: No Patient has previously received the following treatment(s) for lower extremity varicose veins: Reports none Does patient have a history of : no Does patient intend to have future pregnancies: no Has patient had lower extremity venous scan with relux testing: Yes Support hose used: Yes Problems walking or doing physical activity: Yes How does it affect you: Unable to walk long distances, effects work requirements standing Do you walk much: Yes Do you stand much: Yes Review of Systems ROS Narrative Ariel Webb MD personally performed the services described in this documentation, as scribed by Annia Olson RN in my presence and it is both accurate and complete. Annia Webb RN, am scribing for, and in the presence of, Dr. Ariel Mota and in the presence of the patient. Status of ROS 10 or more systems reviewed and unremarkable except as noted in history and below Cardiovascular Reports: edema and swelling of feet/ankles Musculoskeletal Reports: extremity pain, extremity swelling, joint pain, joint swelling and muscle cramps Integumentary/Breast Reports: itching, skin pain, skin tenderness and skin swelling [facility] Medical History (Updated 04/03/24 @ 07:54 by Annia Olson RN) Phlebitis and thrombophlebitis of superficial vessels of right lower extremity ?I80.01 - Phlebitis and thrombophlebitis of superficial vessels of right lower extremity (ICD-10) Phlebitis and thrombophlebitis of superficial vessels of left lower extremity ?I80.02 - Phlebitis and thrombophlebitis of superficial vessels of left lower extremity (ICD-10) FH: cholecystectomy ?Z83.79 - Family history of other diseases of the digestive system (ICD-10) Depression ?F32.A - Depression, unspecified (ICD-10) Hypercholesteremia ?E78.00 - Pure hypercholesterolemia, unspecified (ICD-10) Hypertension ?I10 - Essential (primary) hypertension (ICD-10) Pain due to varicose veins of both lower extremities ?I83.813 - Varicose veins of bilateral lower extremities with pain (ICD-10) Surgical History (Updated 03/19/24 @ 09:33 by Ricki Horowitz) Status post laser ablation of incompetent vein ?Z98.890 - Other specified postprocedural states (ICD-10) History of tonsillectomy ?Z90.89 - Acquired absence of other organs (ICD-10) History of appendectomy ?Z90.49 - Acquired absence of other specified parts of digestive tract (ICD-10) Family History (Updated 03/04/24 @ 08:30 by Annia Olson, ANDERS) Mother Family history of CHF (congestive heart failure) Family history of cancer Family history of hypertension Family history of myocardial infarction Family history of stroke Uncle Family history of CHF (congestive heart failure) Father Family history of cancer Family history of hypertension Sister Family history of diabetes mellitus Family history of hypertension Social History (Updated 03/04/24 @ 08:31 by Annia Olson, RN) Within the past year, how often did you have a drink containing alcohol: never Score interpretation: A score less than 3 is consistent with normal alcohol consumption. Smoking status: Never smoker Non-prescribed substance use: former substance user Meds Home Medications and Allergies Home Medications ?Medication ?Instructions ?Recorded ?Confirmed ?Type duloxetine 60 mg capsule,delayed 60 mg PO DAILY 03/04/24 03/04/24 History release (Cymbalta) gabapentin 600 mg tablet 600 mg PO TID 03/04/24 03/04/24 History multivit with min-folic 1 tab PO DAILY 03/04/24 03/04/24 History acid-lutein 400 mcg-250 mcg chewable tablet (Centrum Silver) nortriptyline 10 mg capsule 10 mg PO DAILY 03/04/24 03/04/24 History (Pamelor) rosuvastatin 20 mg tablet 20 mg PO DAILY 03/04/24 03/04/24 History Allergies Allergy/AdvReac Type Severity Reaction Status Date / Time No Known Drug Allergies Allergy Unverified 03/04/24 08:34 Exam Narrative Exam Narrative: IAriel MD personally performed the services described in this documentation, as scribed by Annia Olson RN in my presence and it is both accurate and complete. I, Annia Olson RN, am scribing for, and in the presence of, Dr. Ariel Mota and in the presence of the patient. Constitutional Documenting provider has reviewed patient's vital signs: yes Common normals: oriented x3 Nutritional appearance: overweight Lymph Lymphatic: no lymphedema noted Cardio Peripheral pulses: posterior tibial pulses present and dorsalis pedis pulses present Extremity General: calf tenderness, edema and other findings Right lower extremity: lower leg Right lower leg: inspection and palpation Left lower extremity: lower leg Left lower leg: inspection and palpation Neuro Common normals: oriented x3 Assessment and Plan Assessment and Plan (1) Pain due to varicose veins of both lower extremities: Plan Plan of care: Risks and benefits of the procedure were discussed at length and informed written consent was obtained.? Time-out completed for verification of correct patient, procedure and site.? Staff present during time-out: Annia Olson RN,? Ricki Horowitz RN, Ariel Mota MD, [facility],[place]. Time Out Time___1114____ Patient prepped and procedure performed in usual sterile fashion. Risk of injury related to use of Diode laser and/or laser devices? __AG___ ? Serial number of laser used :? [id number] Control panel self test performed, electrical cords in good condition, floor is dry, basin of water available, fire extinguisher in close proximity_AG__ Polycarbonate goggles available and Laser warning signs outside of doors___AG___ Eye protection provided to patient and staff in room_AG___ Use of laser retardant drapes and dull blackened instruments as directed__AG___ Use of nonflammable prep solutions and use of saline soaked sponges to protect tissues as indicated _AG___ Length 37___ cm Laser operated by ____Dr. Mota Physician verbal confirmation laser locked in place__AG__ Laser start time (date and time) __04/03/24@1125 Laser stop time(date and time) __04/03/24@1129 Miranda _8.0___ Average laser use ___1783____Joules Average laser use___223 seconds Pulse continuous ___AG_? Pulse intermittent ___ Amount of Tumescent used __150____ Evaluated patient for signs and symptoms of electrical injury __AG___ ? Skin clear at insertion site __AG___ Patient tolerated procedure well.? Right leg Coban dressing applied to access site.? Applied Right thigh high leg compression stocking. Will return on 04/10/24 for Right leg limited venous ultrasound and exam. IAriel MD personally performed the services described in this documentation, as scribed by Annai Olson RN in my presence and it is both accurate and complete. I, Annia Olson RN, am scribing for, and in the presence of, Dr. Ariel Mota and in the presence of the patient.
--- NOTE | 2024-04-03 07:54 | P.DS_ITS ---
Discharge Plan Discharge Disposition: Home, Self-Care Outpatient Diagnostics: VC Facility EST LMTD (Routine) Timeframe: 2 Weeks Facility: [facility] - Location: Vein Center Ordered By: Ariel Mota VC EXT Venous RT LMTD (Routine) Timeframe: 2 Weeks Facility: [facility] - Location: Vein Center Ordered By: Ariel Mota Follow Up Appointments: 04/10/24 Plan of Treatment: U/S f/u of right GSV EVLT Patient Instructions: Endovenous Ablation (DC) Print Language: Persian Discharge Date/Time: 04/03/24 11:37
--- NOTE | 2024-04-03 10:49 | VEIN_ITS ---
[address] [address] Patient Name: WILFRED CORBIN MRN: [id number] date: 1965 Sex: F Assigned Patient Location: Current Patient Location: Accession/Order Number: [id number] Exam Date: 04/03/2024 10:55 Report Date: 04/03/2024 14:58 At the request of: JOCELINE CORNEJO Procedure: VC Endovenous Ablation 1VeinRT EXAMINATION: VC Endovenous Ablation 1VeinRT HISTORY: I83.813 - Varicose veins of bilateral lower extremities w... The risks and benefits of the procedure had been previously discussed, and were rediscussed at length. Informed written consent was obtained. Annia Olson RN and Elma Og RDMS, RVT assisted. Time out procedure was performed. The right lower extremity was prepared and draped in the usual sterile fashion to allow knee flexion in the sterile field. Duplex ultrasound probe was draped in a sterile cover, sterile transmission gel was used. Venous mapping was performed with the areas of dilation and large tributaries marked. The total length was 37 cm from the entry proximal calf to 3 cm below the Saphenofemoral junction. The diameter of the right great saphenous vein ranged from 6.2 mm. A 30 gauge needle and 1% buffered lidocaine was used to anesthetize the entry site. A 4 mm incision was made with a scalpel and the saphenous vein was entered percutaneously under direct ultrasound guidance with a micropuncture set, a single stick was successful in gaining access. A micro-guide wire was inserted and the needle removed. A micro-set including a dilator was inserted over the microwire and the needle and dilator were removed. A guide wire was inserted through the micro-set and guided through the saphenous vein to the saphenofemoral junction. The dilator was removed and an introducer sheath was inserted over the wire until the end of the sheath entered the saphenofemoral junction. The dilator and wire were removed and the 600 micron fiber was introduced and placed and positioned so that it extended beyond the sheath and was 3 cm distal to the saphenofemoral or saphenopopliteal junction. Final position of the fiber was determined by ultrasound guidance and duplex imaging. Tumescent anesthetic was delivered by ultrasound guidance. 150 cc of fluid was delivered along the entire course of the saphenous vein. The solution consisted of 1000 cc of normal saline with 40 mL of 1% lidocaine and 20 mL of sodium bicarbonate. A final positioning check was made. The energy source was turned on by means of the foot pedal and the fiber and sheath were withdrawn. The total number of Joules delivered was 1783. The laser was active for 223 seconds under continuous pulse, average laser use of 8 J. Laser start time: 11:25 AM Laser stop time: 11:29 AM Date: 04/03/2024. A duplex ultrasound revealed compressibility and flow at the saphenofemoral junction immediately after the procedure. Hemostasis at the access site was achieved. The skin incision of the saphenous vein was closed with a 4 x 4. A compression stocking was applied. Postop instructions were given. A follow up appointment was recommended and scheduled. The patient tolerated the procedure well. Electronically authenticated by: SHIVA ASH Date: 04/03/2024 14:58
--- OUTSIDE RECORDS SUMMARY | 2024-04-03 10:59 | XMS_ITS | CCD ---
Author Organization [facility] [employer] Care Team Providers Care Transition Mgr Rn Name Role Phone Juan Miguel Campbell Unavailable [...] MD Shira Sadler Primary Care Provider GABBY Reyez-APRON OPERATOR-Ophelia Gonzalez Attending Provider Rigo Chance Unavailable MD Shira Sadler Primary Care Provider MD Rigo Chance Attending Provider MD Shira Sadler Primary Care Provider MD Rigo Chance Attending Provider [phone] MD Marcos Weinberg Attending Provider MD Shira Sadler Primary Care Provider MD Travis Sadler Attending Provider MARIANNA TORRES Attending Unavailable TRAVIS SADLER Referring Unavailable MD Shira Sadler Primary Care Provider GABBY Knox Attending Provider Travis Sadler Admitting Unavailable Travis Sadler Attending Unavailable Shira Sadler Primary Care Unavailable Ester Knox Admitting Unavailable Esetr Knox Attending Unavailable Shira Sadler Primary Care [...] physicia Propensity to adverse reactions 7 Comment:Done [facility] Other (4 sources) Allergies Reconciled Propensity to adverse reactions Unknown [facility] Other Medications Current Medications Medication Drug Class(es) [...] 2023 11:37am take 1 capsule by mo [facility] three times daily Gabapentin 300 MG TAKE [...] BY MOUTH AT BEDTIME for 90 Active Pm-Ndh-Cuhrn Acid-Lutein (Centrum Silver) 400-250 mcg Tablet,Chewable (14 sources) Start: 06-19-2019 take 1 tablet by mouth once daily Ml-Xrf-Tsbvu Acid-Lutein (Centrum Silver) 400-250 mcg Tablet,Chewable Active 1 TAB PO Daily June 19, 2019 9:17am Start: 06-19-2019 take 1 tablet by karis th once daily Uh-Kjm-Ygnsi Acid-Lutein (Centrum Silver) 400-250 mcg Tablet,Chewable Active 1 TAB PO Daily June 19, 2019 12:00am Start: 06-19-2019 take 1 tablet by karis th once daily Cf-Sgk-Lnmdf Acid-Lutein (Centrum Silver) 400-250 mcg Tablet,Chewable Active [...] Start: 03-02-2023 take 1 capsule by mo [facility] every twenty-four hours Nortriptyline HCl 10 MG 1 capsule Orally Once a day for 90 days Feb, Active [place] 3 1000 MG (7 sources) take 1 capsule by mouth once daily [place] 3 1000 MG 1 capsule Orally Once a day Active [place] 1-Sdz-Yhh-Fish Oil (Fish Oil) 360-1,200 mg Capsule,Delayed Release(Dr/Ec) (14 sources) Start: 06-19-2019 take 360-1200 mg by mouth once daily [place] 4-Ich-Hnb-Fish Oil (Fish Oil) 360-1,200 mg Capsule,Delayed Release(Dr/Ec) Active 1 CAP PO Daily June 19, 2019 9:17am Start: 06-19-2019 End: 08-13-2023 take 360-1200 mg by mouth once daily [place] 0-Yjf-Pda-Fish Oil (Fish Oil) 360-1,200 mg Capsule,Delayed Release(Dr/Ec) Discontinued 1 CAP PO Daily June 19, 2019 1:00am August 13, 2023 11:36am Start: 06-19-2019 End: 08-13-2023 take 360-1200 mg by mouth once daily [place] 0-Ddt-Ppv-Fish Oil (Fish Oil) 360-1,200 mg Capsule,Delayed Release(Dr/Ec) Discontinued 1 CAP PO Daily June 19, 2019 12:00am August 13, 2023 10:36am Start: 06-19-2019 take 360-1200 mg by mouth once daily [place] 2-Inm-Xeo-Fish Oil (Fish Oil) 360-1,200 mg Capsule,Delayed Release(Dr/Ec) Active 1 CAP PO Daily June 19, 2019 12:00am Start: 06-19-2019 take 360-1200 mg by mouth once daily [place] 8-Dwg-Lgx-Fish Oil (Fish Oil) 360-1,200 mg Capsule,Delayed Release(Dr/Ec) [...] take 600 mg by mouth once daily [place]'s Wort Active 600 MG PO Daily June [...] take 600 mg by mouth once daily [place]'s Wort Active 600 MG PO Daily June [...] on 02-08-2024 Creatinine [Mass/Vol] 0.7 mg/dL 0.6-1.3 [facility] Comment on above: ER/ESD physician is notified/shown all ISTAT results.Critical values may be confirmed by laboratory testing ifdeemed necessary by ER attending doctor. MR lumbar spine wo/w conon 0 02-08-2024 MR lumbar spine wo/w con [facility] Main [place] [address] [place], [place] [id number] MRI Report Signed Patient: Melodie Corbin MR#: [id number] : 1965 Acct:[id number] Age/Sex: 59 / F ADM Date: 02/08/24 Loc: MR Room: Type: [facility] Attending Dr: Ester Knox APRN Copies to: [...] Romeo Mason M.D.02/08/2024 3:22 PM Dictation Location: [place] [address] Transcribed By: [facility] 02/08/24 1522 Dictated By: Romeo Mason II, MD 02/08/24 1510 Signed By: 02/08/24 1522 Normal [facility] No Panel InformationOrdered By: Ester Knox on 02-08-2024 Bedside Estimated GFR (eGFR) > 60.0 [facility] XR lumbar spine AP/LAT/FLX/E XTon 02-08-2024 XR lumbar spine AP/LAT/FLX/EXT [facility] [place] [place] [address] XRay Report Signed Patient: Melodie Corbin MR#: [id number] : 1965 Acct:[id number] Age/Sex: 59 / F ADM Date: 02/08/24 Loc: MR Room: [facility] Attending Dr: Ester Knox APRN Copies to: [...] Calderon Barreto M.D.02/08/2024 4:02 PM Dictation Location: [place] [address] Transcribed By: [facility] 02/08/24 1602 Dictated By: Calderon Barreto DO 02/08/24 1601 Signed By: 02/08/24 1602 Normal [facility] MR head/brain wo/w conon MR head/brain wo/w con [facility] [place] [address] MRI Report Signed Patient: Melodie Corbin MR#: [id number] : 1965 Acct:[id number] Age/Sex: 58 / F ADM Date: 11/12/23 Loc: Room: Type: [facility] Attending Dr: Travis Sadler MD Copies to: [...] Romeo Mason M.D.11/12/2023 1:16 PM Dictation Location: [place] [address] Transcribed By: [facility] 11/12/23 1316 Dictated By: Romeo Mason II, MD 11/12/23 1308 Signed By: 11/12/23 1316 Normal [facility] MR lumbar spine wo conon MR lumbar spine wo con [facility] [place] [address] MRI Report Signed Patient: Melodie Corbin MR#: [id number] : 1965 Acct:[id number] Age/Sex: 58 / F ADM Date: 10/01/23 Loc: MR Room: Type: [facility] Attending Dr: Marcos Weinberg MD Copies to: [...] Romeo Mason M.D.10/01/2023 12:19 PM Dictation Location: [place] [address] Transcribed By: ADDIE 10/01/23 1219 Dictated By: Romeo Mason II, MD 10/01/23 1206 Signed By: 10/01/23 1219 Normal [facility] XR hips BI 4V adulton 2023 XR hips BI 4V adult [facility] Main [place] [id number] XRay Report Signed Patient: Melodie Corbin MR#: [id number] : 1965 Acct:[id number] Age/Sex: 58 / F ADM Date: 10/01/23 Loc: Room: Type: [facility] CLI Attending Dr: Marcos Weinberg MD [...] Garg Jr., D.OChristiano10/01/2023 10:45 AM Dictation Location: [place] [address] Transcribed By: [facility] 10/01/23 1045 Dictated By: Brandon Garg Jr, DO 10/01/23 1044 Signed By: 10/01/23 1045 Normal [facility] XR pre/post mri xrayon 05-10 XR pre/post mri xray [facility] Main [place] [id number] MRI Report Signed Patient: Melodie Corbin MR#: [id number] : 1965 Acct:[id number] Age/Sex: 58 / F ADM Date: 05/10/23 Loc: [facility] Room: Type: [facility] CLI Attending Dr: Gale RIVAS Copies to: ROB Easton Ordering Provider: ROB Easton Date of Service: 05/10/23 MR/MR lumbar spine wo con: M46.96 ([id number]) XR/XR pre/post mri xray: M46.96 MR lumbar [...] Romeo Mason M.D.05/10/2023 3:20 PM Dictation Location: [place] [address] Transcribed By: [facility] 05/10/23 1520 Dictated By: Romeo Mason II, MD 05/10/23 1512 Signed By: 05/10/23 1520 Normal [facility] MG MAMM SCREEN 3D SHERRI CADon 10-16-2022 MG MAMM SCREEN 3D SHERRI CAD Patient: MELODIE CORBIN Exam Date: 10/16/2022 : 1965 Gender:F Ordering : DR SHIRA SADLER M.D. Admission #: [id number] Family : Order #: [id number] CLICK HERE TO VIEW EXAM RADIOLOGY REPORT PROCEDURE: MAMMOGRAM SCREENING 3D BILATERAL CAD COMPARISON: None. INDICATIONS: Screening mammography Calculator Name NCI Breast Cancer Risk Assessment Tool 5 Year Breast Cancer Risk 1.80% Lifetime Breast Cancer Risk 10.00% Personal Breast Cancer No Personal Ovarian Cancer No Treatments None Family Cancers Father with prostate cancer at age 78. LOCATION: [facility] BREAST COMPOSITION: Heterogeneously dense,which may obscure [...] M.D. on 10/16/2022 at 11:20 Normal [facility] Progress Note-Physicianon Protein mass conc Patient: MELODIE CORBIN Age: 53 years Sex: Female : 1965 Associated Diagnoses: None Author: Juan Miguel Campbell DO Subjective Subjective: Patient presents [employer] for the first evaluation of an injury [...] basis only. Diagnosis: Contusion of left foot (XSR71-TF S90.32XA, Working, Medical). Normal [facility] Comment on above: Result Comment: Elec tronically Signed By: Juan Miguel Campbell DO\.br\Date and Time Signed: 04/02/18 13:57 EDT Vital Signs Date Time Vital Sign Value Performing Clinician Facility 02-21-2024 09:23-0400 Body height 175.26 cm MD Shira Sadler Work Phone: [facility] 02-21-2024 09:23-0400 Body mass index (BMI) [Ratio] 30.3 kg/m2 MD Shira Sadler Work Phone: [facility] 02-21-2024 09:23-0400 Body weight 93.15 kg MD Shira Sadler Work Phone: [facility] 02-11-2024 13:45-0400 Body height 175.26 cm MD Shira Sadler Work Phone: [facility] 02-11-2024 13:45-0400 Body mass index (BMI) [Ratio] 29.8 kg/m2 MD Shira Sadler Work Phone: [facility] 02-11-2024 13:45-0400 Body weight 91.62 kg MD Shira Sadler Work Phone: [facility] 02-11-2024 13:45-0400 Diastolic blood pressure 81 mm[Hg] MD Shira Sadler Work Phone: [facility] 02-11-2024 13:45-0400 Heart rate 58 /min MD Shira Sadler Work Phone: [facility] 02-11-2024 13:45-0400 Systolic blood pressure 177 mm[Hg] MD Shira Sadler Work Phone: [facility] 02-08-2024 06:43-0400 Body height 175.26 cm MD Shira Sadler Work Phone: [facility] 02-08-2024 06:43-0400 Body weight 86.18 kg MD Shira Sadler Work Phone: [facility] 02-07-2024 09:41-0400 Body height 167.64 cm MD Shira Sadler Work Phone: [facility] 02-07-2024 09:41-0400 Body mass index (BMI) [Ratio] 32.7 kg/m2 MD Shira Sadler Work Phone: [facility] 02-07-2024 09:41-0400 Body weight 92 kg MD Shira Sadler Work Phone: [facility] 01-17-2024 09:53-0400 Body weight 92.07 kg MD Shira Sadler Work Phone: [facility] 12-20-2023 11:37-0400 Body height 167.64 cm MD Shira Sadler Work Phone: [facility] 12-20-2023 11:37-0400 Body mass index (BMI) [Ratio] 32.3 kg/m2 MD Shira Sadler Work Phone: [facility] 12-20-2023 11:37-0400 Body weight 90.71 kg MD Shira Sadler Work Phone: [facility] 12-11-2023 09:33-0400 Body height 167.64 cm MD Shira Sadler Work Phone: [facility] 12-11-2023 09:33-0400 Body mass index (BMI) [Ratio] 32.3 kg/m2 MD Shira Sadler Work Phone: [facility] 12-11-2023 09:33-0400 Body weight 90.71 kg MD Shira Sadler Work Phone: [facility] 12-11-2023 09:33-0400 Diastolic blood pressure 93 mm[Hg] MD Shira Sadler Work Phone: [facility] 12-11-2023 09:33-0400 Heart rate 61 /min MD Shira Sadler Work Phone: [facility] 12-11-2023 09:33-0400 Systolic blood pressure 145 mm[Hg] MD Shira Sadler Work Phone: [facility] 11-13-2023 09:39-0400 Body height 167.64 cm MD Shira Sadler Work Phone: [facility] 11-13-2023 09:39-0400 Body mass index (BMI) [Ratio] 32.1 kg/m2 MD Shira Sadler Work Phone: [facility] 11-13-2023 09:39-0400 Body weight 90.26 kg MD Shira Sadler Work Phone: [facility] 11-12-2023 07:25-0400 Body height 167.64 cm MD Shira Sadler Work Phone: [facility] 11-12-2023 07:25-0400 Body weight 86.18 kg MD Shira Sadler Work Phone: [facility] 09-26-2023 11:17-0400 Body height 167.64 cm MD Shira Sadler Work Phone: [facility] 09-26-2023 10:56-0400 Body height 167.64 cm MD Shira Sadler Work Phone: [facility] 09-26-2023 10:56-0400 Body mass index (BMI) [Ratio] 31.4 kg/m2 MD Shira Sadler Work Phone: [facility] 09-26-2023 10:56-0400 Body weight 88.45 kg MD Shira Sadler Work Phone: [facility] 08-13-2023 11:40-0500 Diastolic blood pressure 68 mm[Hg] MD Shira Sadler Work Phone: [facility] 08-13-2023 11:40-0500 Heart rate 54 /min MD Shira Sadler Work Phone: [facility] 08-13-2023 11:40-0500 Respiratory rate 16 /min MD Shira Sadler Work Phone: [facility] 08-13-2023 11:40-0500 SaO2% (BldA) [Mass fraction] 100 % MD Shira Sadler Work Phone: [facility] 08-13-2023 11:40-0500 Systolic blood pressure 145 mm[Hg] MD Shira Sadler Work Phone: [facility] 08-13-2023 10:39-0500 Body height 167.64 cm MD Shira Sadler Work Phone: [facility] 08-13-2023 10:39-0500 Body temperature 98.5 [degF] MD Shira Sadler Work Phone: [facility] 08-13-2023 10:39-0500 Body weight 88.45 kg MD Shira Sadler Work Phone: [facility] 07-12-2023 10:00-0500 Body height 170.18 cm MD Shira Sadler Work Phone: [facility] 07-12-2023 10:00-0500 Body weight 89.9 kg MD hSira Sadler Work Phone: [facility] 07-12-2023 10:00-0500 Diastolic blood pressure 89 mm[Hg] MD Shira Sadler Work Phone: [facility] 07-12-2023 10:00-0500 Systolic blood pressure 141 mm[Hg] MD Shira Sadler Work Phone: [facility] 01-18-2023 13:15-0400 Body height 170.18 cm Shira Sadler Other [employer] Other 01-18-2023 13:15-0400 Body mass index (BMI) [Ratio] 29.75 kg/m2 Shira Sadler Other [employer] [facility] [employer] Other 01-18-2023 13:15-0400 Body weight 86.18 kg Shira Sadler Other [facility] Other 01-18-2023 13:15-0400 Diastolic blood pressure 87 mm[Hg] Shira Sadler Other [employer] Other 01-18-2023 13:15-0400 Systolic blood pressure 147 mm[Hg] Shira Sadler Other [facility] Other 11-01-2022 07:13-0400 Body height 170.18 cm MD Shira Sadler Work Phone: [facility] 11-01-2022 07:13-0400 Body weight 86.18 kg MD Shira Sadler Work Phone: [facility] 12-05-2021 11:00-0400 Body height 170.18 cm John Nath Other [facility] Other 12-05-2021 11:00-0400 Body mass index (BMI) [Ratio] 29.13 kg/m2 John Nath Other [facility] Other 12-05-2021 11:00-0400 Body weight 84.37 kg John Nath Other [facility] Other 11-16-2021 11:45-0400 Body height 170.18 cm John Nath Other [facility] Other 11-16-2021 11:45-0400 Body mass index (BMI) [Ratio] 29.44 kg/m2 John Nath Other [facility] Other 11-16-2021 11:45-0400 Body weight 85.28 kg John Nath Other [facility] [employer] Other 11-04-2021 07:54-0400 Body height 170.18 cm MD Shira Sadler Work Phone: [facility] 11-04-2021 07:54-0400 Body weight 87.08 kg MD Shira Sadler Work Phone: [facility] Encounters Encounter Date Encounter Type Care Provider Facility Start: 02-21-2024 End: 02-21-2024 ambulatory MD Shira Sadler Work Phone: [facility] Work Phone: Start: 02-21-2024 End: 02-21-2024 Patient encounter procedure MD Shira Sadler Work Phone: [facility] Work Phone: Start: 02-11-2024 End: 02-11-2024 Patient encounter procedure MD Shira Sadler Work Phone: [facility] Work Phone: Start: 02-08-2024 End: 02-08-2024 Patient encounter procedure MD Shira Sadler Work Phone: [facility] [place] Work Phone: Start: 02-08-2024 End: 02-08-2024 ambulatory MD Shira Sadler Work Phone: [facility] Work Phone: Start: 02-07-2024 End: 02-07-2024 ambulatory MD Shira Sadler Work Phone: [facility] Work Phone: Start: 02-07-2024 End: 02-07-2024 Patient encounter procedure MD Shira Sadler Work Phone: [facility] Work Phone: Start: 01-17-2024 End: 01-17-2024 ambulatory MD Shira Sadler Work Phone: [facility] Work Phone: Start: 01-17-2024 End: 01-17-2024 Patient encounter procedure MD Shira Sadler Work Phone: [facility] Neuro[facility] Work Phone: Start: 12-20-2023 End: 12-20-2023 ambulatory MD Shira Sadler Work Phone: [facility] Work Phone: Start: 12-20-2023 End: 12-20-2023 Patient encounter procedure MD Shira Sadler Work Phone: [facility] Neurosurgery Work Phone: Start: 12-13-2023 End: 12-13-2023 ambulatory MARIANNA TORRES Not Available Start: 12-11-2023 End: 12-11-2023 ambulatory MD Shira Sadler Work Phone: [facility] Work Phone: Start: 12-11-2023 End: 12-11-2023 Patient encounter procedure MD Shira Sadler Work Phone: [facility] Gastroenterology Work Phone: Start: 11-13-2023 End: 11-13-2023 ambulatory MD Shira Sadler Work Phone: [facility] Work Phone: Start: 11-13-2023 End: 11-13-2023 Patient encounter procedure MD Shira Sadler Work Phone: [facility] Neurosurgery Work Phone: Start: 11-12-2023 End: 11-12-2023 Patient encounter procedure MD Shira Sadler Work Phone: [facility] [place] Work Phone: Start: 11-12-2023 End: 11-12-2023 ambulatory MD Shira Sadler Work Phone: [facility] Work Phone: Start: 10-02-2023 Non-patient / Non-visit MD Shira Sadler Work Phone: [facility] Phys[facility] Work Phone: Start: 10-01-2023 End: 10-01-2023 Patient encounter procedure MD Shira Sadler Work Phone: [facility] [place] Work Phone: Start: 10-01-2023 End: 10-01-2023 ambulatory MD Shira Sadler Work Phone: [facility] Work Phone: Start: 09-26-2023 End: 09-26-2023 ambulatory MD Shira Sadler Work Phone: [facility] Work Phone: Start: 09-26-2023 End: 09-26-2023 Patient encounter procedure MD Shira Sadler Work Phone: [facility] Gastroenterology Work Phone: Start: 08-13-2023 Non-patient / Non-visit MD Shira Sadler Work Phone: [facility] Work Phone: Start: 08-13-2023 End: 08-13-2023 Admission to same day surgery center MD Shira Sadler Work Phone: [facility] Work Phone: Start: 08-13-2023 End: 08-13-2023 ambulatory MD Shira Sadler Work Phone: [facility] Work Phone: Start: 07-17-2023 End: 07-17-2023 ambulatory Rigo Chance Other [facility] Other Start: 07-17-2023 Telephone encounter Rigo Chance [employer] Start: 07-12-2023 End: 07-12-2023 Patient encounter procedure MD Shira Sadler Work Phone: [facility]- Start: 05-10-2023 End: 05-10-2023 Patient encounter procedure MD Shira Sadler Work Phone: [facility] [address] Work Phone: Start: 05-10-2023 End: 05-10-2023 ambulatory MD Shira Sadler Work Phone: [facility] Work Phone: Start: 04-24-2023 End: 04-24-2023 ambulatory Shira Sadler Other [facility] Other Start: 04-24-2023 Telephone encounter Shira Sadler [facility] Start: 03-02-2023 End: 03-02-2023 ambulatory Shira Sadler Other [facility] Other Start: 03-02-2023 Telephone encounter Shira Sadler [facility] Start: 02-07-2023 End: 02-07-2023 ambulatory Shira Sadler Other [facility] Other Start: 02-07-2023 Telephone encounter Shira Sadler [facility] Start: 01-18-2023 End: 01-18-2023 ambulatory Shira Sadler Other [facility] Other Start: 01-18-2023 Office outpatient visit 25 minutes Shira Sadler [facility] Start: 11-01-2022 End: 11-01-2022 ambulatory MD Shira Sadler Work Phone: [facility] Work Phone: Start: 11-01-2022 End: 11-01-2022 Patient encounter procedure MD Shira Sadler Work Phone: [facility] Main [place] Work Phone: Start: 10-16-2022 End: 10-17-[address] SHIRA SADLER Facility: Start: 10-06-2022 End: 10-06-2022 ambulatory Shira Sadler Other [facility] Other Start: 10-06-2022 Telephone encounter Shira Sadler [facility] Start: 12-05-2021 End: 12-05-2021 ambulatory John Nath Other [facility] Other Start: 12-05-2021 Office outpatient visit 15 minutes John Nath [facility] Start: 12-03-2021 End: 12-03-2021 Patient encounter procedure MD Shira Sadler Work Phone: [facility] Start: 11-16-2021 End: 11-16-2021 ambulatory John Nath Other [facility] Other Start: 11-16-2021 Office outpatient visit 15 minutes John Nath [facility] Start: 11-04-2021 End: 11-04-2021 Patient encounter procedure MD Shira Sadler Work Phone: [facility] Start: 04-02-2018 Patient encounter Juan Miguel Palacios ity:[id number] Start: 04-02-2018 End: 04-03-2018 Patient encounter Juan Miguel Campbell Facility:[id number] Procedures Date Procedure Procedure Detail Performing [...] Activity Detail Author Start: 02-11-2024 Patient referral [facility] Work Phone: Start: 11-13-2023 Patient referral [facility] Work Phone: Start: 08-13-2023 [facility] MR Lumbar spine WO a nd W contrast IV [facility] Patient Education Hemorrhoids (DC) [facility] Work Phone: Patient referral [facility] Work Phone: XR Lumbar spine 4 Views [facility] Immunizations Immunization Date Immunization Notes Care Provider Avinash ortega NEGATED: Highlighted row has not occurred!04-16-2019 influenza, high dose seasonal, preservative-free Patient Objection John Nath Other [facility] Other NEGATED: Highlighted row has not occurred!03-24-2019 influenza, high dose seasonal, preservative-free Patient Objection John Nath Other [facility] Other Payers Date Payer Category Payer Self-pay [id number] 2018 Worker's Compensation [id number] 1965 Unknown [id number] 2.16.84 [id number] 1965 Unknown [id number] 2.16.84 [id number] 1965 Unknown [id number] 2.16.84 [id number] 1960 Unknown [id number] Unknown [id number] 2.16.8 [id number] Unknown [id number] 2.16.8 [id number] Unknown [id number] 2.16.8 [id number] Unknown [id number] 2.16.8 [id number] Unknown [id number] 2.16.8 [id number] Social History Date Type Detail Facility Tobacco smoking status NHIS Unknown if ever smoked [facility] Other Start: 1965 Sex Assigned At Female F [facility] Sex Assigned At Sex Assigned At Bir th [facility] Other Start: 08-13-2023 End: 08-13-2023 Tobacco smoking status NHIS Never smoked tobacco (finding) [facility] Goals Date Patient Goal Desired Activity /State Clinical Notes 11-16-2021 to 12-11-2023 Note Date & Type Note Facility 12-11-2023 Evaluation note Authored December 11, 2023 9:49 am Abdominal cramping, abdomina l pain, 1-2 weekly bowel movements, patient negative for rectal bleeding [facility] Work Phone: [phone] 444-591802-19-2024 [facility]* Encounter Date Diagnosis Assessment Notes [...] Sadler. Recheck w MRI in September 2023. [facility] Other 04-14-2023 Evaluation note* Encounter Date Diagnosis Assessment Notes Treatment Notes Treatment Clinical Notes Sep, Screening mammogram for breast cancer (ICD-10 - Z12.31) [facility] Other 06-13-2022 Evaluation note* Encounter Date Diagnosis [...] Torres neurology which I think is appropriate. [facility] Other 05-25-2022 Evaluation note* Encounter Date Diagnosis [...] not have meningiomas in her cervical spine. [facility] Other evaluation noteNo assessment information available [facility] Administration Work Phone: Evaluation noteNo InformationNort Nayatek Other Evaluation note* Diagnosis Onset Date Resolution Status Constipation acute Hemorrhoids acute [facility] Work Phone: Evaluation note* Diagnosis Onset Date Resolution Status Constipation acute Hemorrhoids acute Irritable bowel syndrome with constipation acute [facility] Work Phone: Evaluation note* Diagnosis Onset Date Resolution Status Constipation acute Hemorrhoids acute Irritable bowel syndrome with constipation acute Meningioma acute [facility] Work Phone: Evaluation note* Diagnosis Onset Date Resolution Status Constipation acute Hemorrhoids acute Irritable bowel syndrome with constipation acute Carpal tunnel syndrome, bilateral acute Meningioma acute Irritable bowel syndrome with constipation acute [facility] Work Phone: History and physical note Author Rigo Chance [facility] August 13, 2023 10:42am Note Date/Time August 13, 2023 10:42am [facility] [address] [place] [address] Gastroenterology H&P Signed Patient: Melodie Corbin MR#: [id number] 05 : 1965 Acct:[id number] Age/Sex: 58 / F Adm Date: 4 Loc: Room: Type: [facility] Attending Dr: Rigo Chance MD Copies to: [...] signed by Rigo Chance MD> 08/13/23 1042 [facility] Work Phone: History general Narrative - Reported* Type Description Date Medical History Hearing loss, left Medical History Acute middle ear effusion, left Medical History hypertension Medical History GERD Medical History migraine headaches Surgical History appendectomy 1980 Surgical History tonsillectomy 1980 Surgical History discectomy 2000 Surgical History breast biopsies Surgical History cholecystectomy 2006 Hospitalization History see sx history [facility] Other History general Narrative - Reported* Type Description Date Medical History Hearing loss, left Medical History Acute middle ear effusion, left Medical History hypertension Medical History GERD Medical History migraine headaches Surgical History appendectomy 1981 Surgical History tonsillectomy 1980 Surgical History discectomy 2000 Surgical History breast biopsies Surgical History cholecystectomy 2006 Surgical History Back injections 05/2023 Hospitalization History see sx history [facility] Other Hospital Discharge instructionsAmbulatory Orders* Referral to Neurology Time Frame: 11/13/23, Location: None Selected [facility] Work Phone: Summary Purpose Family History [...] DATE CREATED AUTHOR AUTHOR'S ORGANIZ ATION 12/14/2023 [facility] EPIC DATE CREATED AUTHOR AUTHOR'S ORGANIZ ATION 02/10/2024 [facility] Care Teams (unrecognized sec tion [...] MD Primary Care Provider Active Gale Reyez APRN-APRON OPERATOR-C Attending Provider Active Team Status: Inactive [...] Provider Active Start: October 02, 2023 SHAYNA Pedromo Attending Provider Active Start : October 02, [...] pacsNEW MRI results test done 12/03/21 at [facility] paperworklabsrefillRefillsMAIL PPW FOR RECORDS PERTAINING TO [...] BE BASED ON THE PRIMARY CLINICAL RECORDS. [employer] [facility]. provides no warranty or guarantee of the accuracy or completeness of information in this document.
[2024-04-03] MEDS: LIDOCAINE HCL 1% 100 MG/10 ML MDV INJ (11:00)
[2024-04-03] MEDS: 0.9 % SODIUM CHLORIDE 500 ML, LIDOCAINE HCL 20 ML, SODIUM BICARBONATE 10 MEQ INJ (11:00)
[2024-04-03 11:13] VITALS: BP 124/70; PULSE 72; O2SAT 96
== END 2024-04-03 11:37 | disposition home or self-care (01) ==
LOC: VC 10:47
PROVIDERS: PCP Radiology Diagnostic Radiology; Visit Provider Radiology Diagnostic Radiology
DX: I83.813 Varicose veins of bilateral lower extremities with pain (principal)
CPT/HCPCS: 36478

== ENCOUNTER 2024-04-09 09:21 | Outpatient (OUT) | payer BC, SELFPAY ==
--- NOTE | 2024-04-09 09:22 | VEIN_ITS ---
Patient Name: WILFRED CORBIN MR#: [id number] : 1965 Exam Date: 04/09/2024 Ordering Doctor: DR SHIVA ASH M.D. RADIOLOGY REPORT PROCEDURE: VC EXT VENOUS RT LMTD COMPARISON: None. INDICATIONS: I80.01 - Phlebitis and thrombophlebitis of superficial veins right leg TECHNIQUE: Lower extremity mariee scale and Duplex Doppler evaluation of the deep venous system from the inguinal ligament through the calf veins. FINDINGS: REGION: Right lower extremity. THROMBI: Negative for DVT. Heat induced thrombus in right GSV 1.4 cm from SFJ and extends to medial knee. COMPRESSIBILITY: Non-compressible segments corresponding to thrombus FLOW: Areas of no flow corresponding to thrombus CONCLUSION: Post ablation occlusion of the right great saphenous vein with heat induced thrombus 1.4 cm from the saphenofemoral junction. No deep vein thrombus Dictated by: Saleem Blackman MD on 04/09/2024 at 09:36 Approved by: Saleem Blackman MD on 04/09/2024 at 09:37
--- NOTE | 2024-04-09 09:22 | VEIN_ITS ---
Patient Name: WILFRED CORBIN MR#: [id number] : 1965 Exam Date: 04/09/2024 Ordering Doctor: DR SHIVA ASH M.D. RADIOLOGY REPORT PROCEDURE: [facility] EST LMTD [facility] - OFFICE VISIT FOLLOW UP COMPARISON: [facility], 03/26/2024. PROGRESS NOTES: The patient reports mild to moderate discomfort of the thigh following intravenous laser ablation of the right great saphenous vein. The patient has worn her compression stocking. The patient did not require oral analgesics. The patient has tried exercise. Physical exam demonstrates 2 areas of bruising in the medial right mid to distal thigh measuring 6 and 12 cm in diameter likely related to tumescence injection. Thrombosed right great saphenous vein can be palpated. The incision is healed. No erythema or or warmth to suggest cellulitis or thrombophlebitis. Ulceration Review of the ultrasound performed the same day demonstrates occlusive thrombus extending throughout the treated right great saphenous vein with heat induced thrombus 1.4 cm from the saphenofemoral junction. No deep vein thrombus. The patient expressed a desire to proceed with treatment of incompetent varicose veins with micro foam chemical ablation. [facility]: 1. Successful ablation of the right great saphenous vein 2. Persistent incompetent varicose veins. PLAN: Micro foam chemical ablation left leg incompetent varicose veins Nurse notes, history and physical were reviewed and confirmed, see attached forms. The nurse was present throughout the physical exam and consultation Dictated by: Saleem Blackman MD on 04/09/2024 at 09:40 Approved by: Saleem Blackman MD on 04/09/2024 at 09:46
[2024-04-09 09:38] VITALS: BMI 29.7
--- NOTE | 2024-04-09 09:38 | V.VEINS.HP ---
Vital Signs 04/09/24 09:38 Height 5 ft 7 in Weight 86 kg BMI 29.7 Varicose Veins Patient in today for follow up ultrasound of right lower extremity following EVLT of right GSV completed on 04/03/24. Saleem Webb MD personally performed the services described in this documentation, as scribed by Desi Rees RDMS in my presence and it is both accurate and complete. Desi Webb RDMS, am scribing for, and in the presence of, Dr. Saleem Blackman and in the presence of the patient. thigh: bilateral, knee: bilateral, calf: bilateral, ankle: bilateral and [place]: bilateral aching, cramping, intermittent and tender 8 5 years Worsened in recent months: Yes standing and walking elevating extremities Reports fatigue, heaviness, limb pain and leg edema History of lower extremity trauma: No Superficial thrombophlebitis: No Family history of varicose veins: yes Has patient had previous lower extremity venous surgery: No Patient has previously received the following treatment(s) for lower extremity varicose veins: Reports none Does patient have a history of : no Does patient intend to have future pregnancies: no Has patient had lower extremity venous scan with relux testing: Yes Support hose used: Yes Problems walking or doing physical activity: Yes How does it affect you: Unable to walk long distances, effects work requirements standing Do you walk much: Yes Do you stand much: Yes Review of Systems ROS Narrative Saleem Webb MD personally performed the services described in this documentation, as scribed by Desi Rees RDMS in my presence and it is both accurate and complete. Desi Webb RDMS am scribing for, and in the presence of, Dr. Saleem Blackman and in the presence of the patient. Status of ROS 10 or more systems reviewed and unremarkable except as noted in history and below Cardiovascular Reports: edema and swelling of feet/ankles Musculoskeletal Reports: extremity pain, extremity swelling, joint pain, joint swelling and muscle cramps Integumentary/Breast Reports: itching, skin pain, skin tenderness and skin swelling [facility] Medical History (Updated 04/03/24 @ 07:54 by Annia Olson RN) Phlebitis and thrombophlebitis of superficial vessels of right lower extremity ?I80.01 - Phlebitis and thrombophlebitis of superficial vessels of right lower extremity (ICD-10) Phlebitis and thrombophlebitis of superficial vessels of left lower extremity ?I80.02 - Phlebitis and thrombophlebitis of superficial vessels of left lower extremity (ICD-10) FH: cholecystectomy ?Z83.79 - Family history of other diseases of the digestive system (ICD-10) Depression ?F32.A - Depression, unspecified (ICD-10) Hypercholesteremia ?E78.00 - Pure hypercholesterolemia, unspecified (ICD-10) Hypertension ?I10 - Essential (primary) hypertension (ICD-10) Pain due to varicose veins of both lower extremities ?I83.813 - Varicose veins of bilateral lower extremities with pain (ICD-10) Surgical History (Updated 03/19/24 @ 09:33 by Ricki Horowitz) Status post laser ablation of incompetent vein ?Z98.890 - Other specified postprocedural states (ICD-10) History of tonsillectomy ?Z90.89 - Acquired absence of other organs (ICD-10) History of appendectomy ?Z90.49 - Acquired absence of other specified parts of digestive tract (ICD-10) Family History (Updated 03/04/24 @ 08:30 by Annia Olson, ANDERS) Mother Family history of CHF (congestive heart failure) Family history of cancer Family history of hypertension Family history of myocardial infarction Family history of stroke Uncle Family history of CHF (congestive heart failure) Father Family history of cancer Family history of hypertension Sister Family history of diabetes mellitus Family history of hypertension Social History (Updated 03/04/24 @ 08:31 by Annia Olson, RN) Within the past year, how often did you have a drink containing alcohol: never Score interpretation: A score less than 3 is consistent with normal alcohol consumption. Smoking status: Never smoker Non-prescribed substance use: former substance user Meds Home Medications and Allergies Home Medications ?Medication ?Instructions ?Recorded ?Confirmed ?Type duloxetine 60 mg capsule,delayed 60 mg PO DAILY 03/04/24 03/04/24 History release (Cymbalta) gabapentin 600 mg tablet 600 mg PO TID 03/04/24 03/04/24 History multivit with min-folic 1 tab PO DAILY 03/04/24 03/04/24 History acid-lutein 400 mcg-250 mcg chewable tablet (Centrum Silver) nortriptyline 10 mg capsule 10 mg PO DAILY 03/04/24 03/04/24 History (Pamelor) rosuvastatin 20 mg tablet 20 mg PO DAILY 03/04/24 03/04/24 History Allergies Allergy/AdvReac Type Severity Reaction Status Date / Time No Known Drug Allergies Allergy Unverified 03/04/24 08:34 Exam Narrative Exam Narrative: Saleem Webb MD personally performed the services described in this documentation, as scribed by Desi Rees RDMS in my presence and it is both accurate and complete. Desi Webb RDMS, am scribing for, and in the presence of, Dr. Saleem Blackman and in the presence of the patient. Constitutional Documenting provider has reviewed patient's vital signs: yes Common normals: oriented x3 Nutritional appearance: overweight Lymph Lymphatic: no lymphedema noted Cardio Peripheral pulses: posterior tibial pulses present and dorsalis pedis pulses present Extremity General: calf tenderness, edema and other findings Right lower extremity: lower leg Right lower leg: inspection and palpation Left lower extremity: lower leg Left lower leg: inspection and palpation Neuro Common normals: oriented x3 Results Imaging Venous US: Radiologist's impression: Heat induced thrombus in right GSV 1.4 cm from SFJ and extends to medial calf. Saleem Webb MD personally performed the services described in this documentation, as scribed by Desi Rees RDMS in my presence and it is both accurate and complete. Desi Webb RDMS, am scribing for, and in the presence of, Dr. Saleem Blackman and in the presence of the patient. Assessment and Plan Assessment and Plan (1) Phlebitis and thrombophlebitis of superficial vessels of right lower extremity: Plan Plan is for patient to return for Varithena/microfoam of left leg on 04/18/24. Saleem Webb MD personally performed the services described in this documentation, as scribed by Desi Rees RDMS in my presence and it is both accurate and complete. Desi Webb RDMS am scribing for, and in the presence of, Dr. Saleem Blackman and in the presence of the patient.
--- OUTSIDE RECORDS SUMMARY | 2024-04-09 09:39 | XMS_ITS | CCD ---
Author Organization [facility] CliniSyfl Care Team Providers Care Manager Sales Name Role Phone Juan Miguel Campbell Unavailable [...] MD Shira Sadler Primary Care Provider GABBY Reyez-[facility] VICE PRESIDENT-Ophelia Gonzalez Attending Provider Rigo Chance Unavailable MD [...] Unavailable MD Shira Sadler Primary Care Provider [phone] Allergies Allergy Classification Reported Allergen(s) Allergy Type Date of Onset Reaction(s) Facility (4 sources) patient allergy list reviewed by nurse or physicia Propensity to adverse reactions 7 Comment:Done [facility] Other (4 sources) Allergies Reconciled Propensity to adverse reactions Unknown [facility] Other Medications Current Medications Medication Drug Class(es) [...] 2023 11:37am take 1 capsule by mo [facility] three times daily Gabapentin 300 MG TAKE [...] BY MOUTH AT BEDTIME for 90 Active Lp-Ybx-Mwxcm Acid-Lutein (Centrum Silver) 400-250 mcg Tablet,Chewable (14 sources) Start: 06-19-2019 take 1 tablet by mouth once daily Na-Hfi-Pbwhm Acid-Lutein (Centrum Silver) 400-250 mcg Tablet,Chewable Active 1 TAB PO Daily June 19, 2019 9:17am Start: 06-19-2019 take 1 tablet by karis th once daily Ad-Fpb-Kwwbr Acid-Lutein (Centrum Silver) 400-250 mcg Tablet,Chewable Active 1 TAB PO Daily June 19, 2019 12:00am Start: 06-19-2019 take 1 tablet by karis th once daily Dy-Yjr-Iuxyw Acid-Lutein (Centrum Silver) 400-250 mcg Tablet,Chewable Active [...] Start: 03-02-2023 take 1 capsule by mo [facility] every twenty-four hours Nortriptyline HCl 10 MG 1 capsule Orally Once a day for 90 days Feb, Active [place] 3 1000 MG (7 sources) take 1 capsule by mouth once daily [place] 3 1000 MG 1 capsule Orally Once a day Active [place] 1-Wfo-Yjt-Fish Oil (Fish Oil) 360-1,200 mg Capsule,Delayed Release(Dr/Ec) (14 sources) Start: 06-19-2019 take 360-1200 mg by mouth once daily [place] 7-Nmu-Hhz-Fish Oil (Fish Oil) 360-1,200 mg Capsule,Delayed Release(Dr/Ec) Active 1 CAP PO Daily June 19, 2019 9:17am Start: 06-19-2019 End: 08-13-2023 take 360-1200 mg by mouth once daily [place] 5-Ccv-Gtx-Fish Oil (Fish Oil) 360-1,200 mg Capsule,Delayed Release(Dr/Ec) Discontinued 1 CAP PO Daily June 19, 2019 1:00am August 13, 2023 11:36am Start: 06-19-2019 End: 08-13-2023 take 360-1200 mg by mouth once daily [place] 9-Civ-Ntg-Fish Oil (Fish Oil) 360-1,200 mg Capsule,Delayed Release(Dr/Ec) Discontinued 1 CAP PO Daily June 19, 2019 12:00am August 13, 2023 10:36am Start: 06-19-2019 take 360-1200 mg by mouth once daily [place] 0-Fvc-Gul-Fish Oil (Fish Oil) 360-1,200 mg Capsule,Delayed Release(Dr/Ec) Active 1 CAP PO Daily June 19, 2019 12:00am Start: 06-19-2019 take 360-1200 mg by mouth once daily [place] 4-Hol-Njb-Fish Oil (Fish Oil) 360-1,200 mg Capsule,Delayed Release(Dr/Ec) [...] take 600 mg by mouth once daily Rosanky's Wort Active 600 MG PO Daily June [...] take 600 mg by mouth once daily Rosanky's Wort Active 600 MG PO Daily June [...] on 02-08-2024 Creatinine [Mass/Vol] 0.7 mg/dL 0.6-1.3 [facility] Comment on above: ER/ESD physician is notified/shown all ISTAT results.Critical values may be confirmed by laboratory testing ifdeemed necessary by ER attending doctor. MR lumbar spine wo/w conon 0 02-08-2024 MR lumbar spine wo/w con [facility] Main [place] [address] [place], [place] [id number] MRI Report Signed Patient: Melodie Corbin MR#: [id number] : 1965 Acct:[id number] Age/Sex: 59 / F ADM Date: 02/08/24 Loc: MR Room: Type: [facility] Attending Dr: Ester Knox APRN Copies [...] Romeo Mason M.D.02/08/2024 3:22 PM Dictation Location: [place] [address] Transcribed By: [facility] 02/08/24 1522 Dictated By: Romeo Mason II, MD 02/08/24 1510 Signed By: 02/08/24 1522 Normal [facility] No Panel InformationOrdered By: Ester Knox on 02-08-2024 Bedside Estimated GFR (eGFR) > 60.0 [facility] XR lumbar spine AP/LAT/FLX/E XTon 02-08-2024 XR lumbar spine AP/LAT/FLX/EXT [facility] [place] [address] XRay Report Signed Patient: Melodie Corbin MR#: [id number] : 1965 Acct:[id number] Age/Sex: 59 / F ADM Date: 02/08/24 Loc: MR Room: [facility] Attending Dr: Ester Knox APRN Copies [...] Calderon Barreto M.D.02/08/2024 4:02 PM Dictation Location: [place] [address] Transcribed By: [facility] 02/08/24 1602 Dictated By: Calderon Barreto DO 02/08/24 1601 Signed By: 02/08/24 1602 Normal [facility] MR head/brain wo/w conon MR head/brain wo/w con [facility] [place] [address] MRI Report Signed Patient: Melodie Corbin MR#: [id number] : 1965 Acct:[id number] Age/Sex: 58 / F ADM Date: 11/12/23 Loc: Room: Type: [facility] Attending Dr: Travis Sadler MD Copies [...] Romeo Mason M.D.11/12/2023 1:16 PM Dictation Location: [place] [address] Transcribed By: [facility] 11/12/23 1316 Dictated By: Romeo Mason II, MD 11/12/23 1308 Signed By: 11/12/23 1316 Normal [facility] MR lumbar spine wo conon MR lumbar spine wo con [facility] [place] [address] MRI Report Signed Patient: Melodie Corbin MR#: [id number] : 1965 Acct:[id number] Age/Sex: 58 / F ADM Date: 10/01/23 Loc: MR Room: Type: [facility] Attending Dr: Marcos Weinberg MD Copies [...] Romeo Mason M.D.10/01/2023 12:19 PM Dictation Location: [place] [address] Transcribed By: ADDIE 10/01/23 1219 Dictated By: Romeo Mason II, MD 10/01/23 1206 Signed By: 10/01/23 1219 Normal [facility] XR hips BI 4V adulton 2023 XR hips BI 4V adult [facility] Main [place] [id number] XRay Report Signed Patient: Melodie Corbin MR#: [id number] : 1965 Acct:[id number] Age/Sex: 58 / F ADM Date: 10/01/23 Loc: Room: Type: [facility] CLI Attending Dr: Marcos Weinberg [...] Garg Jr., D.OChristiano10/01/2023 10:45 AM Dictation Location: [place] [address] Transcribed By: [facility] 10/01/23 1045 Dictated By: Brandon Garg Jr, DO 10/01/23 1044 Signed By: 10/01/23 1045 Normal [facility] XR pre/post mri xrayon 05-10 XR pre/post mri xray [facility] Main [place] [id number] MRI Report Signed Patient: Melodie Corbin MR#: [id number] : 1965 Acct:[id number] Age/Sex: 58 / F ADM Date: 05/10/23 Loc: [facility] Room: Type: [facility] CLI Attending Dr: Gale RIVAS Copies to: ROB Easton Ordering Provider: ROB Easton Date of Service: 05/10/23 MR/MR lumbar spine wo con: M46.96 ([id number]) XR/XR pre/post mri xray: M46.96 MR lumbar [...] Romeo Mason M.D.05/10/2023 3:20 PM Dictation Location: [place] [address] Transcribed By: [facility] 05/10/23 1520 Dictated By: Romeo Mason II, MD 05/10/23 1512 Signed By: 05/10/23 1520 Normal [facility] MG MAMM SCREEN 3D SHERRI CADon 10-16-2022 MG MAMM SCREEN 3D SHERRI CAD Patient: MELODIE CORBIN Exam Date: 10/16/2022 : 1965 Gender:F Ordering : DR SHIRA SADLER M.D. Admission #: [id number] Family : Order #: [id number] CLICK HERE TO VIEW EXAM RADIOLOGY REPORT PROCEDURE: MAMMOGRAM SCREENING 3D BILATERAL CAD COMPARISON: None. INDICATIONS: Screening mammography Calculator Name NCI Breast Cancer Risk Assessment Tool 5 Year Breast Cancer Risk 1.80% Lifetime Breast Cancer Risk 10.00% Personal Breast Cancer No Personal Ovarian Cancer No Treatments None Family Cancers Father with prostate cancer at age 78. LOCATION: [facility] BREAST COMPOSITION: Heterogeneously dense,which may obscure [...] M.D. on 10/16/2022 at 11:20 Normal [facility] Progress Note-Physicianon Protein mass conc Patient: MELODIE CORBIN Age: 53 years Sex: Female : 1965 Associated Diagnoses: None Author: Juan Miguel Campbell DO Subjective Subjective: Patient presents [employer] [facility] [employer] for the first evaluation of an injury [...] basis only. Diagnosis: Contusion of left foot (NEF73-BW S90.32XA, Working, Medical). Normal [facility] Comment on above: Result Comment: Elec tronically Signed By: Juan Miguel Campbell DO\.br\Date and Time Signed: 04/02/18 13:57 EDT Vital Signs Date Time Vital Sign Value Performing Clinician Facility 02-21-2024 09:23-0400 Body height 175.26 cm MD Shira Sadler Work Phone: [facility] 02-21-2024 09:23-0400 Body mass index (BMI) [Ratio] 30.3 kg/m2 MD Shira Sadler Work Phone: [facility] 02-21-2024 09:23-0400 Body weight 93.15 kg MD Shira Sadler Work Phone: [facility] 02-11-2024 13:45-0400 Body height 175.26 cm MD Shira Sadler Work Phone: [facility] 02-11-2024 13:45-0400 Body mass index (BMI) [Ratio] 29.8 kg/m2 MD Shira Sadler Work Phone: [facility] 02-11-2024 13:45-0400 Body weight 91.62 kg MD Shria Sadler Work Phone: [facility] 02-11-2024 13:45-0400 Diastolic blood pressure 81 mm[Hg] MD Shira Sadler Work Phone: [facility] 02-11-2024 13:45-0400 Heart rate 58 /min MD Shira Sadler Work Phone: [facility] 02-11-2024 13:45-0400 Systolic blood pressure 177 mm[Hg] MD Shira Sadler Work Phone: [facility] 02-08-2024 06:43-0400 Body height 175.26 cm MD Sihra Sadler Work Phone: [facility] 02-08-2024 06:43-0400 Body weight 86.18 kg MD Shira Sadler Work Phone: [facility] 02-07-2024 09:41-0400 Body height 167.64 cm MD Shira Sadler Work Phone: [facility] 02-07-2024 09:41-0400 Body mass index (BMI) [Ratio] 32.7 kg/m2 MD Shira Sadler Work Phone: [facility] 02-07-2024 09:41-0400 Body weight 92 kg MD Shira Sadler Work Phone: [facility] 01-17-2024 09:53-0400 Body weight 92.07 kg MD Shira Sadler Work Phone: [facility] 12-20-2023 11:37-0400 Body height 167.64 cm MD Shira Sadler Work Phone: [facility] 12-20-2023 11:37-0400 Body mass index (BMI) [Ratio] 32.3 kg/m2 MD Shira Sadler Work Phone: [facility] 12-20-2023 11:37-0400 Body weight 90.71 kg MD Shira Sadler Work Phone: [facility] 12-11-2023 09:33-0400 Body height 167.64 cm MD Shira Sadler Work Phone: [facility] 12-11-2023 09:33-0400 Body mass index (BMI) [Ratio] 32.3 kg/m2 MD Shira Sadler Work Phone: [facility] 12-11-2023 09:33-0400 Body weight 90.71 kg MD Shira Sadler Work Phone: [facility] 12-11-2023 09:33-0400 Diastolic blood pressure 93 mm[Hg] MD Shira Sadler Work Phone: [facility] 12-11-2023 09:33-0400 Heart rate 61 /min MD Shira Sadler Work Phone: [facility] 12-11-2023 09:33-0400 Systolic blood pressure 145 mm[Hg] MD Shira Sadler Work Phone: [facility] 11-13-2023 09:39-0400 Body height 167.64 cm MD Shira Sadler Work Phone: [facility] 11-13-2023 09:39-0400 Body mass index (BMI) [Ratio] 32.1 kg/m2 MD Shira Sadler Work Phone: [facility] 11-13-2023 09:39-0400 Body weight 90.26 kg MD Shira Sadler Work Phone: [facility] 11-12-2023 07:25-0400 Body height 167.64 cm MD Shira Sadler Work Phone: [facility] 11-12-2023 07:25-0400 Body weight 86.18 kg MD Shira Sadler Work Phone: [facility] 09-26-2023 11:17-0400 Body height 167.64 cm MD Shira Sadler Work Phone: [facility] 09-26-2023 10:56-0400 Body height 167.64 cm MD Shira Sadler Work Phone: [facility] 09-26-2023 10:56-0400 Body mass index (BMI) [Ratio] 31.4 kg/m2 MD Shira Sadler Work Phone: [facility] 09-26-2023 10:56-0400 Body weight 88.45 kg MD Shira Sadler Work Phone: [facility] 08-13-2023 11:40-0500 Diastolic blood pressure 68 mm[Hg] MD Shira Sadler Work Phone: [facility] 08-13-2023 11:40-0500 Heart rate 54 /min MD Shira Sadler Work Phone: [facility] 08-13-2023 11:40-0500 Respiratory rate 16 /min MD Shira Sadler Work Phone: [facility] 08-13-2023 11:40-0500 SaO2% (BldA) [Mass fraction] 100 % MD Shira Sadler Work Phone: [facility] 08-13-2023 11:40-0500 Systolic blood pressure 145 mm[Hg] MD Shira Sadler Work Phone: [facility] 08-13-2023 10:39-0500 Body height 167.64 cm MD Shira Sadler Work Phone: [facility] 08-13-2023 10:39-0500 Body temperature 98.5 [degF] MD Shira Sadler Work Phone: [facility] 08-13-2023 10:39-0500 Body weight 88.45 kg MD Shira Sadler Work Phone: [facility] 07-12-2023 10:00-0500 Body height 170.18 cm MD Shira Sadler Work Phone: [facility] 07-12-2023 10:00-0500 Body weight 89.9 kg MD Shira Sadler Work Phone: [facility] 07-12-2023 10:00-0500 Diastolic blood pressure 89 mm[Hg] MD Shira Sadler Work Phone: [facility] 07-12-2023 10:00-0500 Systolic blood pressure 141 mm[Hg] MD Shira Sadler Work Phone: [facility] 01-18-2023 13:15-0400 Body height 170.18 cm Shira Sadler Other [place] [employer] Other 01-18-2023 13:15-0400 Body mass index (BMI) [Ratio] 29.75 kg/m2 Shira Sadler Other [employer] [facility] Other 01-18-2023 13:15-0400 Body weight 86.18 kg Shira Sadler Other [facility] Other 01-18-2023 13:15-0400 Diastolic blood pressure 87 mm[Hg] Shira Sadler Other [place] [facility] Other 01-18-2023 13:15-0400 Systolic blood pressure 147 mm[Hg] Shira Sadler Other [facility] Other 11-01-2022 07:13-0400 Body height 170.18 cm MD Shira Sadler Work Phone: [facility] 11-01-2022 07:13-0400 Body weight 86.18 kg MD Shira Sadler Work Phone: [facility] 12-05-2021 11:00-0400 Body height 170.18 cm John Nath Other [facility] Other 12-05-2021 11:00-0400 Body mass index (BMI) [Ratio] 29.13 kg/m2 John Nath Other [facility] Other 12-05-2021 11:00-0400 Body weight 84.37 kg John Nath Other [facility] Other 11-16-2021 11:45-0400 Body height 170.18 cm John Nath Other [facility] Other 11-16-2021 11:45-0400 Body mass index (BMI) [Ratio] 29.44 kg/m2 John Nath Other [facility] Other 11-16-2021 11:45-0400 Body weight 85.28 kg John Nath Other [facility] Other 11-04-2021 07:54-0400 Body height 170.18 cm MD Shira Sadler Work Phone: [facility] 11-04-2021 07:54-0400 Body weight 87.08 kg MD Shira Sadler Work Phone: [facility] Encounters Encounter Date Encounter Type Care Provider Facility Start: 02-21-2024 End: 02-21-2024 ambulatory MD Shira Sadler Work Phone: [facility] Work Phone: Start: 02-21-2024 End: 02-21-2024 Patient encounter procedure MD Shira Sadler Work Phone: [facility] Work Phone: Start: 02-11-2024 End: 02-11-2024 Patient encounter procedure MD Shira Sadler Work Phone: [facility] Work Phone: Start: 02-08-2024 End: 02-08-2024 Patient encounter procedure MD Shira Sadler Work Phone: [facility] Main [place] Work Phone: Start: 02-08-2024 End: 02-08-2024 ambulatory MD Shira Sadler Work Phone: [facility] Work Phone: Start: 02-07-2024 End: 02-07-2024 ambulatory MD Shira Sadler Work Phone: [facility] Work Phone: Start: 02-07-2024 End: 02-07-2024 Patient encounter procedure MD Shira Sadler Work Phone: [facility] Work Phone: Start: 01-17-2024 End: 01-17-2024 ambulatory MD Shira Sadler Work Phone: [facility] Work Phone: Start: 01-17-2024 End: 01-17-2024 Patient encounter procedure MD Shira Sadler Work Phone: [facility] Neurosurgery Work Phone: Start: 12-20-2023 End: 12-20-2023 ambulatory MD Shira Sadler Work Phone: [facility] Work Phone: Start: 12-20-2023 End: 12-20-2023 Patient encounter procedure MD Shira Sadler Work Phone: [facility] Neurosurgery Work Phone: Start: 12-13-2023 End: 12-13-2023 ambulatory MARIANNA TORRES Not Available Start: 12-11-2023 End: 12-11-2023 ambulatory MD Shira Sadler Work Phone: [facility] Work Phone: Start: 12-11-2023 End: 12-11-2023 Patient encounter procedure MD Shira Sadler Work Phone: [facility] Gastroenterology Work Phone: Start: 11-13-2023 End: 11-13-2023 ambulatory MD Shira Sadler Work Phone: [facility] Work Phone: Start: 11-13-2023 End: 11-13-2023 Patient encounter procedure MD Shira Sadler Work Phone: [facility] Neurosurgery Work Phone: Start: 11-12-2023 End: 11-12-2023 Patient encounter procedure MD Shira Sadler Work Phone: [facility] Main [place] Work Phone: Start: 11-12-2023 End: 11-12-2023 ambulatory MD Shira Sadler Work Phone: [facility] Work Phone: Start: 10-02-2023 Non-patient / Non-visit MD Shira Sadler Work Phone: [facility] Work Phone: Start: 10-01-2023 End: 10-01-2023 Patient encounter procedure MD Shira Sadler Work Phone: [facility] [place] Work Phone: Start: 10-01-2023 End: 10-01-2023 ambulatory MD Shira Sadler Work Phone: [facility] Work Phone: Start: 09-26-2023 End: 09-26-2023 ambulatory MD Shira Sadler Work Phone: [facility] Work Phone: Start: 09-26-2023 End: 09-26-2023 Patient encounter procedure MD Shira Sadler Work Phone: [facility] Gastroenterology Work Phone: Start: 08-13-2023 Non-patient / Non-visit MD Shira Sadler Work Phone: [facility] Work Phone: Start: 08-13-2023 End: 08-13-2023 Admission to same day surgery center MD Shira Sadler Work Phone: [facility] Work Phone: Start: 08-13-2023 End: 08-13-2023 ambulatory MD Shira Sadler Work Phone: [facility] Work Phone: Start: 07-17-2023 End: 07-17-2023 ambulatory Rigo Chance Other [facility] Other Start: 07-17-2023 Telephone encounter Rigo Chance [facility] Nurse Practitioner Start: 07-12-2023 End: 07-12-2023 Patient encounter procedure MD Shira Sadler Work Phone: [facility]- Start: 05-10-2023 End: 05-10-2023 Patient encounter procedure MD Shira Sadler Work Phone: [facility] [address] Work Phone: Start: 05-10-2023 End: 05-10-2023 ambulatory MD Shira Sadler Work Phone: [facility] Work Phone: Start: 04-24-2023 End: 04-24-2023 ambulatory Shira Sadler Other [facility] Other Start: 04-24-2023 Telephone encounter Shira Sadler [facility] Start: 03-02-2023 End: 03-02-2023 ambulatory Shira Sadler Other [facility] Other Start: 03-02-2023 Telephone encounter Shira Sadler [facility] Start: 02-07-2023 End: 02-07-2023 ambulatory Shira Sadler Other [facility] Other Start: 02-07-2023 Telephone encounter Shira Sadler [facility] Start: 01-18-2023 End: 01-18-2023 ambulatory Shira Sadler Other [facility] Other Start: 01-18-2023 Office outpatient visit 25 minutes Shira Sadler [facility] Start: 11-01-2022 End: 11-01-2022 ambulatory MD Shira Sadler Work Phone: [facility] Work Phone: Start: 11-01-2022 End: 11-01-2022 Patient encounter procedure MD Shira Sadler Work Phone: [facility] Main [place] Work Phone: Start: 10-16-2022 End: 10-17-[address] SHIRA SADLER Facility: Start: 10-06-2022 End: 10-06-2022 ambulatory Shira Sadler Other [facility] Other Start: 10-06-2022 Telephone encounter Shira Sadler [facility] Start: 12-05-2021 End: 12-05-2021 ambulatory John Nath Other [facility] Other Start: 12-05-2021 Office outpatient visit 15 minutes John Nath [facility] Start: 12-03-2021 End: 12-03-2021 Patient encounter procedure MD Shira Sadler Work Phone: [facility] Start: 11-16-2021 End: 11-16-2021 ambulatory John Nath Other [facility] Other Start: 11-16-2021 Office outpatient visit 15 minutes John Nath [facility] Start: 11-04-2021 End: 11-04-2021 Patient encounter procedure MD Shira Sadler Work Phone: [facility] Start: 04-02-2018 Patient encounter Juan Miguel Palaciso ity:[id number] Start: 04-02-2018 End: 04-03-2018 Patient encounter Juan Miguel Campbell Facility:[id number] Procedures Date Procedure Procedure Detail Performing [...] Activity Detail Author Start: 02-11-2024 Patient referral [facility] Work Phone: Start: 11-13-2023 Patient referral [facility] Work Phone: Start: 08-13-2023 [facility] MR Lumbar spine WO a nd W contrast IV [facility] Patient Education Hemorrhoids (DC) [facility] Work Phone: Patient referral [facility] Work Phone: XR Lumbar spine 4 Views [facility] Immunizations Immunization Date Immunization Notes Care Provider Avinash ortega NEGATED: Highlighted row has not occurred!04-16-2019 influenza, high dose seasonal, preservative-free Patient Objection John Nath Other [facility] Other NEGATED: Highlighted row has not occurred!03-24-2019 influenza, high dose seasonal, preservative-free Patient Objection John Nath Other [facility] Other Payers Date Payer Category Payer Self-pay [id number] 2018 Worker's Compensation [id number] 1965 Unknown [id number] 2.16.84 [id number] 1965 Unknown [id number] 2.16.84 [id number] 1965 Unknown [id number] 2.16.84 [id number] 1960 Unknown [id number] Unknown [id number] 2.16.8 [id number] Unknown [id number] 2.16.8 [id number] Unknown [id number] 2.16.8 [id number] Unknown [id number] 2.16.8 [id number] Unknown [id number] 2.16.8 [id number] Social History Date Type Detail Facility Tobacco smoking status NHIS Unknown if ever smoked [facility] Other Start: 1965 Sex Assigned At Female F [facility] Sex Assigned At Sex Assigned At Bir th [facility] Other Start: 08-13-2023 End: 08-13-2023 Tobacco smoking status NHIS Never smoked tobacco (finding) [facility] Goals Date Patient Goal Desired Activity /State Clinical Notes 11-16-2021 to 12-11-2023 Note Date & Type Note Facility 12-11-2023 Evaluation note Authored December 11, 2023 9:49 am Abdominal cramping, abdomina l pain, 1-2 weekly bowel movements, patient negative for rectal bleeding [facility] Work Phone: [phone] 572-593802-19-2024 [facility]* Encounter Date Diagnosis Assessment Notes [...] Sadler. Recheck w MRI in September 2023. [facility] Other 04-14-2023 Evaluation note* Encounter Date Diagnosis Assessment Notes Treatment Notes Treatment Clinical Notes Sep, Screening mammogram for breast cancer (ICD-10 - Z12.31) [facility] Other 06-13-2022 Evaluation note* Encounter Date Diagnosis [...] Torres neurology which I think is appropriate. [facility] Other 05-25-2022 Evaluation note* Encounter Date Diagnosis [...] not have meningiomas in her cervical spine. [facility] Other evaluation noteNo assessment information available [facility] Work Phone: Evaluation noteNo InformationNort [place] Other Evaluation note* Diagnosis Onset Date Resolution Status Constipation acute Hemorrhoids acute [facility] Work Phone: Evaluation note* Diagnosis Onset Date Resolution Status Constipation acute Hemorrhoids acute Irritable bowel syndrome with constipation acute [facility] Work Phone: Evaluation note* Diagnosis Onset Date Resolution Status Constipation acute Hemorrhoids acute Irritable bowel syndrome with constipation acute Meningioma acute [facility] Work Phone: Evaluation note* Diagnosis Onset Date Resolution Status Constipation acute Hemorrhoids acute Irritable bowel syndrome with constipation acute Carpal tunnel syndrome, bilateral acute Meningioma acute Irritable bowel syndrome with constipation acute [facility] Work Phone: History and physical note Author Rigo Chance [facility] August 13, 2023 10:42am Note Date/Time August 13, 2023 10:42am [facility] [address] [place] [address] Gastroenterology H&P Signed Patient: Melodie Corbin MR#: [id number] 05 : 1965 Acct:[id number] Age/Sex: 58 / F Adm Date: 4 [...] signed by Rigo Chance MD> 08/13/23 1042 [facility] Work Phone: History general Narrative - Reported* Type Description Date Medical History Hearing loss, left Medical History Acute middle ear effusion, left Medical History hypertension Medical History GERD Medical History migraine headaches Surgical History appendectomy 1980 Surgical History tonsillectomy 1980 Surgical History discectomy 2000 Surgical History breast biopsies Surgical History cholecystectomy 2006 Hospitalization History see sx history [facility] Other History general Narrative - Reported* Type Description Date Medical History Hearing loss, left Medical History Acute middle ear effusion, left Medical History hypertension Medical History GERD Medical History migraine headaches Surgical History appendectomy 1981 Surgical History tonsillectomy 1980 Surgical History discectomy 2000 Surgical History breast biopsies Surgical History cholecystectomy 2006 Surgical History Back injections 05/2023 Hospitalization History see sx history [facility] Other Hospital Discharge instructionsAmbulatory Orders* Referral to Neurology Time Frame: 11/13/23, Location: None Selected [facility] Work Phone: Summary Purpose Family History [...] DATE CREATED AUTHOR AUTHOR'S ORGANIZ ATION 12/14/2023 [facility] EPIC DATE CREATED AUTHOR AUTHOR'S ORGANIZ ATION 02/10/2024 [facility] Care Teams (unrecognized sec tion [...] MD Primary Care Provider Active Gale Reyez APRN-FINANCIAL IN[employer]UTION VICE PRESIDENT-C Attending Provider Active Team Status: Inactive Member [...] Team Status: Inactive Member Role Status Leena Sdaler MD Primary Care Provider Active Start: January [...] pacsNEW MRI results test done 12/03/21 at [facility] paperworklabsrefillRefillsMAIL PPW FOR RECORDS PERTAINING TO PATIENTS [...] BE BASED ON THE PRIMARY CLINICAL RECORDS. [employer] [facility]. provides no warranty or guarantee of the accuracy or completeness of information in this document.
--- NOTE | 2024-04-09 10:49 | P.DS_ITS ---
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
--- NOTE | 2024-04-09 10:49 | W.VEIN ---
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
== END 2024-04-09 10:53 | disposition home or self-care (01) ==
PROVIDERS: PCP Radiology Diagnostic Radiology; Visit Provider Radiology Diagnostic Radiology
DX: I80.01 Phlebitis and thrombophlebitis of superficial vessels of right lower extremity (principal)
CPT/HCPCS: 93971; G0463

== ENCOUNTER 2024-04-18 09:18 | Outpatient (OUT) | payer BC, SELFPAY ==
--- NOTE | 2024-04-17 13:24 | VEINCLINIC_ITS ---
Vital Signs 04/18/24 10:27 BP 122/60 BP Location Left Brachial BP Position Sitting BP Cuff Size Adult BP Source Manual Cuff Respiration 16 Pulse 77 Pulse Source Monitor Pulse Oximetry (%) 98 Oxygen Delivery Method Room Air Comment The patient's blood pressure is elevated. Varicose Veins Patient in today for microfoam chemical ablation left leg Ariel Webb MD personally performed the services described in this documentation, as scribed by Ricki Horowitz RN in my presence and it is both accurate and complete. Ricki Webb RN, am scribing for, and in the presence of, Dr. Ariel Mota and in the presence of the patient. thigh: bilateral, knee: bilateral, calf: bilateral, ankle: bilateral and [place]: bilateral aching, cramping, intermittent and tender 8 5 years Worsened in recent months: Yes standing and walking elevating extremities Reports fatigue, heaviness, limb pain and leg edema History of lower extremity trauma: No Superficial thrombophlebitis: No Family history of varicose veins: yes Has patient had previous lower extremity venous surgery: No Patient has previously received the following treatment(s) for lower extremity varicose veins: Reports none Does patient have a history of : no Does patient intend to have future pregnancies: no Has patient had lower extremity venous scan with relux testing: Yes Support hose used: Yes Problems walking or doing physical activity: Yes How does it affect you: Unable to walk long distances, effects work requirements standing Do you walk much: Yes Do you stand much: Yes Review of Systems ROS Narrative Ariel Webb MD personally performed the services described in this documentation, as scribed by Ricki Horowitz RN in my presence and it is both accurate and complete. Ricki Webb RN, am scribing for, and in the presence of, Dr. Ariel Mota and in the presence of the patient. Status of ROS 10 or more systems reviewed and unremark able except as noted in history and below Cardiovascular Reports: edema and swelling of feet/ankles Musculoskeletal Reports: extremity pain, extremity swelling, joint pain, joint swelling and muscle cramps Integumentary/Breast Reports: itching, skin pain, skin tenderness and skin swelling [facility] Medical History (Updated 04/03/24 @ 07:54 by Annia Olson RN) Phlebitis and thrombophlebitis of superficial vessels of right lower extremity ?I80.01 - Phlebitis and thrombophlebitis of superficial vessels of right lower extremity (ICD-10) Phlebitis and thrombophlebitis of superficial vessels of left lower extremity ?I80.02 - Phlebitis and thrombophlebitis of superficial vessels of left lower extremity (ICD-10) FH: cholecystectomy ?Z83.79 - Family history of other diseases of the digestive system (ICD-10) Depression ?F32.A - Depression, unspecified (ICD-10) Hypercholesteremia ?E78.00 - Pure hypercholesterolemia, unspecified (ICD-10) Hypertension ?I10 - Essential (primary) hypertension (ICD-10) Pain due to varicose veins of both lower extremities ?I83.813 - Varicose veins of bilateral lower extremities with pain (ICD-10) Surgical History (Updated 04/18/24 @ 10:39 by Ricki Horowitz) S/P sclerotherapy of varicose veins ?Z98.890 - Other specified postprocedural states (ICD-10) ?Z86.79 - Personal history of other diseases of the circulatory system (ICD- 10) Status post laser ablation of incompetent vein ?Z98.890 - Other specified postprocedural states (ICD-10) History of tonsillectomy ?Z90.89 - Acquired absence of other organs (ICD-10) History of appendectomy ?Z90.49 - Acquired absence of other specified parts of digestive tract (ICD- 10) Family History (Updated 03/04/24 @ 08:30 by Annia Olson RN) Mother Family history of CHF (congestive heart failure) Family history of cancer Family history of hypertension Family history of myocardial infarction Family history of stroke Uncle Family history of CHF (congestive heart failure) Father Family history of cancer Family history of hypertension Sister Family history of diabetes mellitus Family history of hypertension Social History (Updated 03/04/24 @ 08:31 by Annia Olson RN) Within the past year, how often did you have a drink containing alcohol: never Score interpretation: A score less than 3 is consistent with normal alcohol consumption. Smoking status: Never smoker Non-prescribed substance use: former substance user Meds Home Medications and Allergies Home Medications ?Medication ?Instructions ?Recorded ?Confirmed ?Type duloxetine 60 mg capsule,delayed 60 mg PO DAILY 03/04/24 03/04/24 History release (Cymbalta) gabapentin 600 mg tablet 600 mg PO TID 03/04/24 03/04/24 History multivit with min-folic 1 tab PO DAILY 03/04/24 03/04/24 History acid-lutein 400 mcg-250 mcg chewable tablet (Centrum Silver) nortriptyline 10 mg capsule 10 mg PO DAILY 03/04/24 03/04/24 History (Pamelor) rosuvastatin 20 mg tablet 20 mg PO DAILY 03/04/24 03/04/24 History Allergies Allergy/AdvReac Type Severity Reaction Status Date / Time No Known Drug Allergies Allergy Unverified 03/04/24 08:34 Exam Narrative Exam Narrative: Ariel Webb MD personally performed the services described in this documentation, as scribed by Ricki Horowitz RN in my presence and it is both accurate and complete. IRicki RN, am scribing for, and in the presence of, Dr. Ariel Mota and in the presence of the patient. Constitutional Documenting provider has reviewed patient's vital signs: yes Common normals: oriented x3 Nutritional appearance: overweight Lymph Lymphatic: no lymphedema noted Cardio Peripheral pulses: posterior tibial pulses present and dorsalis pedis pulses present Extremity General: calf tenderness, edema and other findings Right lower extremity: lower leg Right lower leg: inspection and palpation Left lower extremity: lower leg Left lower leg: inspection and palpation Neuro Common normals: oriented x3 Assessment and Plan Assessment and Plan (1) Pain due to varicose veins of both lower extremities: (2) S/P sclerotherapy of varicose veins: Plan f/u evaluation with physician along with right leg limited u/s Ariel Webb MD personally performed the services described in this documentation, as scribed by Ricki Horowitz RN in my presence and it is both accurate and complete. Ricki Webb RN, am scribing for, and in the presence of, Dr. Ariel Mota and in the presence of the patient. Procedures Procedure Instructions Procedures leg microfoam chemical ablation/Varithena: Risks and benefits of the procedure were discussed at length and informed written consent was obtained.? Time-out procedure was performed and the correct patient and procedure were confirmed.? Staff present during time-out: Ricki Horowitz RN and Ariel Mota MD.? Patient prepped and procedure performed in usual sterile fashion.? Patient was placed in Trendelenburg prior to Polidocanol/Vari thena injections. Sclerosing Agent:?? 14cc 1% Polidocanol/Varithena Site Injected: left lecc varithena administered in to a 4mm varicose vein mid medial left lower leg 4cc varithena administered in to a 5mm varicose vein mid medial upper leg 4cc varithena administered in to a 4mm varicose vein mid lateral lower leg Number of Injections:? 3 The patient tolerated the procedure well without complication.? Hemostasis was obtained and thigh-high compression stocking was applied with foam pads.? Instructed patient to wear stocking for at least 96 hours and sleep with it and only remove for showering.? The patient was instructed to? wear stocking for 2 weeks.? Patient verbalizes understanding and states they will comply.? Patient was given post-procedure instructions. Patient was discharged in good condition.? Scheduled to undergo limited venous ultrasound and? exam on 04/23/2024 Ariel Webb MD personally performed the services described in this documentation, as scribed by Ricki Horowitz RN in my presence and it is both accurate and complete. Ricki Webb RN, am scribing for, and in the presence of, Dr. Ariel Mota and in the presence of the patient.
--- NOTE | 2024-04-17 13:27 | P.DS_ITS ---
Discharge Plan Discharge Disposition: Home, Self-Care Outpatient Diagnostics: VC Facility EST LMTD (Routine) Timeframe: 2 Weeks Facility: [facility] - Location: Vein Center Ordered By: Ariel Mota VC EXT Venous LT Limited (Routine) Timeframe: 2 Weeks Facility: [facility] - Location: Vein Center Ordered By: Ariel Mota Follow Up Appointments: 04/23/2024 Plan of Treatment: f/u evaluation with physician along with left leg limited u/s Patient Instructions: Polidocanol (By injection) (Asclera, Varithena) Print Language: Citizen Of [place] Discharge Date/Time: 04/18/24 10:29
--- NOTE | 2024-04-18 09:19 | VEIN_ITS ---
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 Pre-operative Diagnosis: CEAP class C3 venous insufficiency with pain, tenderness, edema and incompetent branch saphenous vein(s), chronic venous insufficiency left leg secondary to venous incompetence Post-operative Diagnosis: CEAP class C3 venous insufficiency with pain, tenderness, edema and incompetent branch saphenous vein(s), chronic venous insufficiency [ leg secondary to venous incompetence Procedure Performed: 1. Ultrasound-guided microfoam chemical ablation with Varithenaregistered 2. Intraoperative ultrasound guidance Physician: Ariel Mota M.D. Anesthesia: None Indications for Procedure: 59 year old female. Symptoms including lower extremity pain, swelling, dilated bulging veins for many years despite conservative medical therapy including medical compression stockings, exercise and analgesics. Prior procedures include endovenous laser ablation. Multiple incompetent varicosities of the left leg. Duplex scan showed reflux and enlarged diameters up to 5 mm. The patient underwent informed consent including management options where the complications of infection, bleeding, pain, and skin injury were discussed. Particular attention was spent discussing thrombus extension and deep vein thrombosis as well as the possibility of pulmonary embolus and treatment with oral or injectable blood thinners. Procedure: The patient walked to the procedure room. All applicable staff donned appropriate apparel. A procedure timeout was performed to confirm correct patient, correct extremity, correct procedure, and correct room set-up including presence of all applicable supplies, devices, and drugs. A duplex ultrasound, performed by myself confirmed the location and incompetence of branch saphenous varicosities and their course was marked on the skin together with the dilated tributaries. The extent of treatment of the vein and the associated varicosities was determined through ultrasound mapping. The skin was prepped and then punctured with a butterfly needle and advanced under ultrasound guidance. The Varithenaregistered canister was activated and the canister was primed and purged as required in the instructions for use. Varithenaregistered was drawn into a sterile syringe. Varithenaregistered was slowly administered at 0.5-1.0 cc/second with close observation by ultrasound of its course in the vessels. Total volume utilized was: 13 mL (5 mL into a 4 mm varicosity of the mid medial lower leg; 4 mL into a 5 mm varicosity mid medial upper leg; 4 mL into a 4 mm varicosity mid lateral lower leg). Following administration of Varithenaregistered the leg was elevated and the patient was asked to repeatedly dorsiflex the ankle to limit flow of Varithenaregistered into perforating veins. Once appropriate spasm had been confirmed in the treated veins, the vascular catheter was removed from the leg and light pressure was applied over the puncture site for hemostasis. The common femoral and deep superficial veins were then evaluated for flow and compressibility prior to dressing placement. The lower extremity was kept elevated at 45 degrees above the horizontal and cording material was applied over the saphenous segments and tributaries to allow for eccentric compression over the target vessels including the targeted saphenous vein(s). A multilayer dressing was applied consisting of foam pads, coban and thigh-high 20-30 mm Hg compression elastic support hose were placed on the patient. The leg was lowered only after compression had been applied and the patient was immediately ambulatory. The patient ambulated 10 minutes under supervision and was without apparent concerns at time of release. Post-care instructions include advising patient to keep post-treatment bandages in place and dry for 48 hours, avoid extended periods of inactivity, avoid heavy exercise for one week, wear compression stockings on the treated leg continuously for two weeks, to walk daily for 10 minutes over the next month. The patient was instructed to take an anti-inflammatory medicine as needed and to follow up for color duplex scan of the Saphenous veins, the treated branch saphenous varicosities, the adjacent deep veins, and additional treatment within 7 days. PERSONNEL: Ricki Horowitz RN Electronically authenticated by: ARIEL MOTA Date: 04/18/2024 16:09
--- OUTSIDE RECORDS SUMMARY | 2024-04-18 09:23 | XMS_ITS | CCD ---
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 Name Role Phone Juan Miguel Campbell [...] Care Provider MD Travis Sadler Attending Provider [phone] MD Shira Sadler Primary Care Provider GABBY Reyez-FAMILY THERAPIST-Ophelia Gonzalez Attending Provider Rigo Chance Unavailable MD [...] physicia Propensity to adverse reactions 7 Comment:Done [employer] Other (4 sources) Allergies Reconciled Propensity to adverse reactions Unknown [employer] Other Medications Current Medications Medication Drug Class(es) [...] 2023 11:37am take 1 capsule by mo [facility] three times daily Gabapentin 300 MG [...] BY MOUTH AT BEDTIME for 90 Active Fk-Pzq-Sjzqg Acid-Lutein (Centrum Silver) 400-250 mcg Tablet,Chewable (14 sources) Start: 06-19-2019 take 1 tablet by mouth once daily Sn-Nmp-Uvlka Acid-Lutein (Centrum Silver) 400-250 mcg Tablet,Chewable Active 1 TAB PO Daily June 19, 2019 9:17am Start: 06-19-2019 take 1 tablet by karis th once daily Kl-Rht-Bbbwh Acid-Lutein (Centrum Silver) 400-250 mcg Tablet,Chewable Active 1 TAB PO Daily June 19, 2019 12:00am Start: 06-19-2019 take 1 tablet by karis th once daily An-Fop-Tqbat Acid-Lutein (Centrum Silver) 400-250 mcg Tablet,Chewable Active [...] Start: 03-02-2023 take 1 capsule by mo [facility] every twenty-four hours Nortriptyline HCl 10 MG 1 capsule Orally Once a day for 90 days Feb, Active [place] 3 1000 MG (7 sources) take 1 capsule by mouth once daily [place] 3 1000 MG 1 capsule Orally Once a day Active [place] 5-Ijl-Oer-Fish Oil (Fish Oil) 360-1,200 mg Capsule,Delayed Release(Dr/Ec) (14 sources) Start: 06-19-2019 take 360-1200 mg by mouth once daily [place] 7-Hzs-Dws-Fish Oil (Fish Oil) 360-1,200 mg Capsule,Delayed Release(Dr/Ec) Active 1 CAP PO Daily June 19, 2019 9:17am Start: 06-19-2019 End: 08-13-2023 take 360-1200 mg by mouth once daily [place] 3-Ytf-Mhp-Fish Oil (Fish Oil) 360-1,200 mg Capsule,Delayed Release(Dr/Ec) Discontinued 1 CAP PO Daily June 19, 2019 1:00am August 13, 2023 11:36am Start: 06-19-2019 End: 08-13-2023 take 360-1200 mg by mouth once daily [place] 9-Mda-Hks-Fish Oil (Fish Oil) 360-1,200 mg Capsule,Delayed Release(Dr/Ec) Discontinued 1 CAP PO Daily June 19, 2019 12:00am August 13, 2023 10:36am Start: 06-19-2019 take 360-1200 mg by mouth once daily [place] 0-Fug-Rcz-Fish Oil (Fish Oil) 360-1,200 mg Capsule,Delayed Release(Dr/Ec) Active 1 CAP PO Daily June 19, 2019 12:00am Start: 06-19-2019 take 360-1200 mg by mouth once daily [place] 0-Lgb-Vmy-Fish Oil (Fish Oil) 360-1,200 mg Capsule,Delayed Release(Dr/Ec) [...] take 600 mg by mouth once daily Stockett's Wort Active 600 MG PO Daily June [...] take 600 mg by mouth once daily Stockett's Wort Active 600 MG PO Daily June [...] on 02-08-2024 Creatinine [Mass/Vol] 0.7 mg/dL 0.6-1.3 [facility] Comment on above: ER/ESD physician is notified/shown all ISTAT results.Critical values may be confirmed by laboratory testing ifdeemed necessary by ER attending doctor. MR lumbar spine wo/w conon 0 02-08-2024 MR lumbar spine wo/w con [facility] Main [place] [address] [place], [place] [id number] MRI Report Signed Patient: Melodie Corbin MR#: [id number] : 1965 Acct:[id number] Age/Sex: 59 / F ADM Date: 02/08/24 Loc: MR Room: Type: [facility] Attending Dr: Ester Knox APRN Copies to: [...] Romeo Mason M.D.02/08/2024 3:22 PM Dictation Location: [place] [address] Transcribed By: [facility] 02/08/24 1522 Dictated By: Romeo Mason II, MD 02/08/24 1510 Signed By: 02/08/24 1522 Normal [facility] No Panel InformationOrdered By: Ester Knox on 02-08-2024 Bedside Estimated GFR (eGFR) > 60.0 [facility] XR lumbar spine AP/LAT/FLX/E XTon 02-08-2024 XR lumbar spine AP/LAT/FLX/EXT [facility] [place] [address] XRay Report Signed Patient: Melodie Corbin MR#: [id number] : 1965 Acct:[id number] Age/Sex: 59 / F ADM Date: 02/08/24 Loc: MR Room: [facility] Attending Dr: Ester Knox APRN Copies to: [...] Calderon Barreto M.D.02/08/2024 4:02 PM Dictation Location: [place] [address] Transcribed By: [facility] 02/08/24 1602 Dictated By: Calderon Barreto DO 02/08/24 1601 Signed By: 02/08/24 1602 Normal [facility] MR head/brain wo/w conon MR head/brain wo/w con [facility] [place] [address] MRI Report Signed Patient: Melodie Corbin MR#: [id number] : 1965 Acct:[id number] Age/Sex: 58 / F ADM Date: 11/12/23 Loc: Room: Type: [facility] Attending Dr: Travis Sadler MD Copies to: [...] Romeo Mason M.D.11/12/2023 1:16 PM Dictation Location: [place] [address] Transcribed By: [facility] 11/12/23 1316 Dictated By: Romeo Mason II, MD 11/12/23 1308 Signed By: 11/12/23 1316 Normal [facility] MR lumbar spine wo conon MR lumbar spine wo con [facility] [place] [address] MRI Report Signed Patient: Melodie Corbin MR#: [id number] : 1965 Acct:[id number] Age/Sex: 58 / F ADM Date: 10/01/23 Loc: MR Room: Type: [facility] Attending Dr: Marcos Weinberg MD Copies to: [...] Romeo Mason M.D.10/01/2023 12:19 PM Dictation Location: [place] [address] Transcribed By: ADDIE 10/01/23 1219 Dictated By: Romeo Mason II, MD 10/01/23 1206 Signed By: 10/01/23 1219 Normal [facility] XR hips BI 4V adulton 2023 XR hips BI 4V adult [facility] Main [place] [id number] XRay Report Signed Patient: Melodie Corbin MR#: [id number] : 1965 Acct:[id number] Age/Sex: 58 / F ADM Date: 10/01/23 Loc: Room: Type: [facility] Attending Dr: Marcos Weinberg [...] Garg Jr., D.OChristiano10/01/2023 10:45 AM Dictation Location: [place] [address] Transcribed By: [facility] 10/01/23 1045 Dictated By: Brandon Garg Jr, DO 10/01/23 1044 Signed By: 10/01/23 1045 Normal [facility] XR pre/post mri xrayon 05-10 XR pre/post mri xray [facility] Main [place] [id number] MRI Report Signed Patient: Melodie Corbin MR#: [id number] : 1965 Acct:[id number] Age/Sex: 58 / F ADM Date: 05/10/23 Loc: [facility] Room: Type: [facility] CLI Attending Dr: Gale RIVAS Copies to: ROB Easton Ordering Provider: ROB Easton Date of Service: 05/10/23 MR/MR lumbar spine wo con: M46.96 ([id number]) XR/XR pre/post mri xray: M46.96 MR lumbar [...] Romeo Mason M.D.05/10/2023 3:20 PM Dictation Location: [place] [address] Transcribed By: [facility] 05/10/23 1520 Dictated By: Romeo Mason II, MD 05/10/23 1512 Signed By: 05/10/23 1520 Normal [facility] MG MAMM SCREEN 3D SHERRI CADon 10-16-2022 MG MAMM SCREEN 3D SHERRI CAD Patient: MELODIE CORBIN Exam Date: 10/16/2022 : 1965 Gender:F Ordering : DR SHIRA SADLER M.D. Admission #: [id number] Family : Order #: [id number] CLICK HERE TO VIEW EXAM RADIOLOGY REPORT PROCEDURE: MAMMOGRAM SCREENING 3D BILATERAL CAD COMPARISON: None. INDICATIONS: Screening mammography Calculator Name NCI Breast Cancer Risk Assessment Tool 5 Year Breast Cancer Risk 1.80% Lifetime Breast Cancer Risk 10.00% Personal Breast Cancer No Personal Ovarian Cancer No Treatments None Family Cancers Father with prostate cancer at age 78. LOCATION: [facility] BREAST COMPOSITION: Heterogeneously dense,which may obscure small [...] M.D. on 10/16/2022 at 11:20 Normal [facility] Progress Note-Physicianon Protein mass conc Patient: MELODIE CORBIN Age: 53 years Sex: Female : 1965 Associated Diagnoses: None Author: Juan Miguel Campbell DO Subjective Subjective: Patient presents [facility] for the first evaluation of an injury [...] basis only. Diagnosis: Contusion of left foot (TOH95-PJ S90.32XA, Working, Medical). Normal [facility] Comment on above: Result Comment: Elec tronically Signed By: Juan Miguel Campbell DO\.br\Date and Time Signed: 04/02/18 13:57 EDT Vital Signs Date Time Vital Sign Value Performing Clinician Facility 02-21-2024 09:23-0400 Body height 175.26 cm MD Shira Sadler Work Phone: [facility] 02-21-2024 09:23-0400 Body mass index (BMI) [Ratio] 30.3 kg/m2 MD Shira Sadler Work Phone: [facility] 02-21-2024 09:23-0400 Body weight 93.15 kg MD Shira Sadler Work Phone: [facility] 02-11-2024 13:45-0400 Body height 175.26 cm MD Shira Sadler Work Phone: [facility] 02-11-2024 13:45-0400 Body mass index (BMI) [Ratio] 29.8 kg/m2 MD Shira Sadler Work Phone: [facility] 02-11-2024 13:45-0400 Body weight 91.62 kg MD Shira Sadler Work Phone: [facility] 02-11-2024 13:45-0400 Diastolic blood pressure 81 mm[Hg] MD Shira Sadler Work Phone: [facility] 02-11-2024 13:45-0400 Heart rate 58 /min MD Shira Sadler Work Phone: [facility] 02-11-2024 13:45-0400 Systolic blood pressure 177 mm[Hg] MD Shira Sadler Work Phone: [facility] 02-08-2024 06:43-0400 Body height 175.26 cm MD Shira Sadler Work Phone: [facility] 02-08-2024 06:43-0400 Body weight 86.18 kg MD Shira Sadler Work Phone: [facility] 02-07-2024 09:41-0400 Body height 167.64 cm MD Shira Sadler Work Phone: [facility] 02-07-2024 09:41-0400 Body mass index (BMI) [Ratio] 32.7 kg/m2 MD Shira Sadler Work Phone: [facility] 02-07-2024 09:41-0400 Body weight 92 kg MD Shira Sadler Work Phone: [facility] 01-17-2024 09:53-0400 Body weight 92.07 kg MD Shira Sadler Work Phone: [facility] 12-20-2023 11:37-0400 Body height 167.64 cm MD Shira Sadler Work Phone: [facility] 12-20-2023 11:37-0400 Body mass index (BMI) [Ratio] 32.3 kg/m2 MD Shira Sadler Work Phone: [facility] 12-20-2023 11:37-0400 Body weight 90.71 kg MD Shira Sadler Work Phone: [facility] 12-11-2023 09:33-0400 Body height 167.64 cm MD Shira Sadler Work Phone: [facility] 12-11-2023 09:33-0400 Body mass index (BMI) [Ratio] 32.3 kg/m2 MD Shira Sadler Work Phone: [facility] 12-11-2023 09:33-0400 Body weight 90.71 kg MD Shira Sadler Work Phone: [facility] 12-11-2023 09:33-0400 Diastolic blood pressure 93 mm[Hg] MD Shira Sadler Work Phone: [facility] 12-11-2023 09:33-0400 Heart rate 61 /min MD Shira Sadler Work Phone: [facility] 12-11-2023 09:33-0400 Systolic blood pressure 145 mm[Hg] MD Shira Sadler Work Phone: [facility] 11-13-2023 09:39-0400 Body height 167.64 cm MD Shira Sadler Work Phone: [facility] 11-13-2023 09:39-0400 Body mass index (BMI) [Ratio] 32.1 kg/m2 MD Shira Sadler Work Phone: [facility] 11-13-2023 09:39-0400 Body weight 90.26 kg MD Shira Sadler Work Phone: [facility] 11-12-2023 07:25-0400 Body height 167.64 cm MD Shira Sadler Work Phone: [facility] 11-12-2023 07:25-0400 Body weight 86.18 kg MD Shira Sadler Work Phone: [facility] 09-26-2023 11:17-0400 Body height 167.64 cm MD Shira Sadler Work Phone: [facility] 09-26-2023 10:56-0400 Body height 167.64 cm MD Shira Sadler Work Phone: [facility] 09-26-2023 10:56-0400 Body mass index (BMI) [Ratio] 31.4 kg/m2 MD Shira Sadler Work Phone: [facility] 09-26-2023 10:56-0400 Body weight 88.45 kg MD Shira Sadler Work Phone: [facility] 08-13-2023 11:40-0500 Diastolic blood pressure 68 mm[Hg] MD Shira Sadler Work Phone: [facility] 08-13-2023 11:40-0500 Heart rate 54 /min MD Shira Sadler Work Phone: [facility] 08-13-2023 11:40-0500 Respiratory rate 16 /min MD Shira Sadler Work Phone: [facility] 08-13-2023 11:40-0500 SaO2% (BldA) [Mass fraction] 100 % MD Sihra Sadler Work Phone: [facility] 08-13-2023 11:40-0500 Systolic blood pressure 145 mm[Hg] MD Shira Sadler Work Phone: [facility] 08-13-2023 10:39-0500 Body height 167.64 cm MD Shira Sadler Work Phone: [facility] 08-13-2023 10:39-0500 Body temperature 98.5 [degF] MD Shira Sadler Work Phone: [facility] 08-13-2023 10:39-0500 Body weight 88.45 kg MD Shira Sadler Work Phone: [facility] 07-12-2023 10:00-0500 Body height 170.18 cm MD Shira Sadler Work Phone: [facility] 07-12-2023 10:00-0500 Body weight 89.9 kg MD Shira Sadler Work Phone: [facility] 07-12-2023 10:00-0500 Diastolic blood pressure 89 mm[Hg] MD Shira Sadler Work Phone: [facility] 07-12-2023 10:00-0500 Systolic blood pressure 141 mm[Hg] MD Shira Sadler Work Phone: [facility] 01-18-2023 13:15-0400 Body height 170.18 cm Shira Sadler Other [employer] Other 01-18-2023 13:15-0400 Body mass index (BMI) [Ratio] 29.75 kg/m2 Shira Sadler Other [employer] [facility] [employer] Other 01-18-2023 13:15-0400 Body weight 86.18 kg Shira Sadler Other [employer] Other 01-18-2023 13:15-0400 Diastolic blood pressure 87 mm[Hg] Shira Sadler Other [employer] [place] [employer] Other 01-18-2023 13:15-0400 Systolic blood pressure 147 mm[Hg] Shira Sadler Other [employer] Other 11-01-2022 07:13-0400 Body height 170.18 cm MD Shira Sadler Work Phone: [facility] 11-01-2022 07:13-0400 Body weight 86.18 kg MD Shira Sadler Work Phone: [facility] 12-05-2021 11:00-0400 Body height 170.18 cm John Nath Other [employer] Other 12-05-2021 11:00-0400 Body mass index (BMI) [Ratio] 29.13 kg/m2 John Nath Other [employer] Other 12-05-2021 11:00-0400 Body weight 84.37 kg John Nath Other [employer] Other 11-16-2021 11:45-0400 Body height 170.18 cm John Nath Other [employer] Other 11-16-2021 11:45-0400 Body mass index (BMI) [Ratio] 29.44 kg/m2 John Nath Other [employer] Other 11-16-2021 11:45-0400 Body weight 85.28 kg John Nath Other [facility] [employer] Other 11-04-2021 07:54-0400 Body height 170.18 cm MD Shira Sadler Work Phone: [facility] 11-04-2021 07:54-0400 Body weight 87.08 kg MD Shira Sadler Work Phone: [facility] Encounters Encounter Date Encounter Type Care Provider Facility Start: 02-21-2024 End: 02-21-2024 ambulatory MD Shira Sadler Work Phone: [facility] Work Phone: Start: 02-21-2024 End: 02-21-2024 Patient encounter procedure MD Shira Sadler Work Phone: [facility] Work Phone: Start: 02-11-2024 End: 02-11-2024 Patient encounter procedure MD Shira Sadler Work Phone: [facility] Work Phone: Start: 02-08-2024 End: 02-08-2024 Patient encounter procedure MD Shira Sadler Work Phone: [facility] [place] Work Phone: Start: 02-08-2024 End: 02-08-2024 ambulatory MD Shira Sadler Work Phone: [facility] Work Phone: Start: 02-07-2024 End: 02-07-2024 ambulatory MD Shira Sadler Work Phone: [facility] Work Phone: Start: 02-07-2024 End: 02-07-2024 Patient encounter procedure MD Shira Sadler Work Phone: [facility] Work Phone: Start: 01-17-2024 End: 01-17-2024 ambulatory MD Shira Sadler Work Phone: [facility] Work Phone: Start: 01-17-2024 End: 01-17-2024 Patient encounter procedure MD Shira Sadler Work Phone: [facility] Neurosurgery Work Phone: Start: 12-20-2023 End: 12-20-2023 ambulatory MD Shira Sadler Work Phone: [facility] Work Phone: Start: 12-20-2023 End: 12-20-2023 Patient encounter procedure MD Shira Sadler Work Phone: [facility] Neurosurgery Work Phone: Start: 12-13-2023 End: 12-13-2023 ambulatory MARIANNA TORRES Not Available Start: 12-11-2023 End: 12-11-2023 ambulatory MD Shira Sadler Work Phone: [facility] Work Phone: Start: 12-11-2023 End: 12-11-2023 Patient encounter procedure MD Shira Sadler Work Phone: [facility] Gastroenterology Work Phone: Start: 11-13-2023 End: 11-13-2023 ambulatory MD Shira Sadler Work Phone: [facility] Work Phone: Start: 11-13-2023 End: 11-13-2023 Patient encounter procedure MD Shira Sadler Work Phone: [facility] Neurosurgery Work Phone: Start: 11-12-2023 End: 11-12-2023 Patient encounter procedure MD Shira Sadler Work Phone: [facility] [place] Work Phone: Start: 11-12-2023 End: 11-12-2023 ambulatory MD Shira Sadler Work Phone: [facility] Work Phone: Start: 10-02-2023 Non-patient / Non-visit MD Shira Sadler Work Phone: [facility] Work Phone: Start: 10-01-2023 End: 10-01-2023 Patient encounter procedure MD Shira Sadler Work Phone: [facility] [place] Work Phone: Start: 10-01-2023 End: 10-01-2023 ambulatory MD Shira Sadler Work Phone: [facility] Work Phone: Start: 09-26-2023 End: 09-26-2023 ambulatory MD Shira Sadler Work Phone: [facility] Work Phone: Start: 09-26-2023 End: 09-26-2023 Patient encounter procedure MD Shira Sadler Work Phone: [facility] Gastroenterology Work Phone: Start: 08-13-2023 Non-patient / Non-visit MD Shira Sadler Work Phone: [facility] Work Phone: Start: 08-13-2023 End: 08-13-2023 Admission to same day surgery center MD Shira Sadler Work Phone: [facility] Work Phone: Start: 08-13-2023 End: 08-13-2023 ambulatory MD Shira Sadler Work Phone: [facility] Work Phone: Start: 07-17-2023 End: 07-17-2023 ambulatory Rigo Chance Other [employer] Other Start: 07-17-2023 Telephone encounter Rigo Chance [employer] Start: 07-12-2023 End: 07-12-2023 Patient encounter procedure MD Shira Sadler Work Phone: [facility]- Start: 05-10-2023 End: 05-10-2023 Patient encounter procedure MD Shira Sadler Work Phone: [facility] [address] Work Phone: Start: 05-10-2023 End: 05-10-2023 ambulatory MD Shira Sadler Work Phone: [facility] Work Phone: Start: 04-24-2023 End: 04-24-2023 ambulatory Shira Sadler Other [employer] Other Start: 04-24-2023 Telephone encounter Shira Sadler [facility] Start: 03-02-2023 End: 03-02-2023 ambulatory Shira Sadler Other [employer] Other Start: 03-02-2023 Telephone encounter Shira Sadler [facility] Start: 02-07-2023 End: 02-07-2023 ambulatory Shira Sadler Other [employer] Other Start: 02-07-2023 Telephone encounter Shira Sadler [facility] Start: 01-18-2023 End: 01-18-2023 ambulatory Shira Sadler Other [employer] Other Start: 01-18-2023 Office outpatient visit 25 minutes Shira Sadler [facility] Start: 11-01-2022 End: 11-01-2022 ambulatory MD Shira Sadler Work Phone: [facility] Work Phone: Start: 11-01-2022 End: 11-01-2022 Patient encounter procedure MD Shira Sadler Work Phone: [facility] [place] Work Phone: Start: 10-16-2022 End: 10-17-[address] SHIRA SADLER Facility: Start: 10-06-2022 End: 10-06-2022 ambulatory Shira Sadler Other [employer] Other Start: 10-06-2022 Telephone encounter Shira Sadler [facility] Start: 12-05-2021 End: 12-05-2021 ambulatory John Nath Other [employer] Other Start: 12-05-2021 Office outpatient visit 15 minutes John Nath [facility] Start: 12-03-2021 End: 12-03-2021 Patient encounter procedure MD Shira Sadler Work Phone: [facility] Start: 11-16-2021 End: 11-16-2021 ambulatory John Nath Other [employer] Other Start: 11-16-2021 Office outpatient visit 15 minutes John Nath [facility] Start: 11-04-2021 End: 11-04-2021 Patient encounter procedure MD Shira Sadler Work Phone: [facility] Start: 04-02-2018 Patient encounter Juan Miguel Palacios ity:[id number] Start: 04-02-2018 End: 04-03-2018 Patient encounter Juan Miguel Campbell Facility:[id number] Procedures Date Procedure Procedure Detail Performing [...] Activity Detail Author Start: 02-11-2024 Patient referral [facility] Work Phone: Start: 11-13-2023 Patient referral [facility] Work Phone: Start: 08-13-2023 [facility] MR Lumbar spine WO a nd W contrast IV [facility] Patient Education Hemorrhoids (DC) [facility] Work Phone: Patient referral [facility] Work Phone: XR Lumbar spine 4 Views [facility] Immunizations Immunization Date Immunization Notes Care Provider Avinash ortega NEGATED: Highlighted row has not occurred!04-16-2019 influenza, high dose seasonal, preservative-free Patient Objection John Nath Other [employer] Other NEGATED: Highlighted row has not occurred!03-24-2019 influenza, high dose seasonal, preservative-free Patient Objection John Nath Other [employer] Other Payers Date Payer Category Payer Self-pay [id number] 2018 Worker's Compensation [id number] 1965 Unknown [id number] 2.16.84 [id number] 1965 Unknown [id number] 2.16.84 [id number] 1965 Unknown [id number] 2.16.84 [id number] 1960 Unknown [id number] Unknown [id number] 2.16.8 [id number] Unknown [id number] 2.16.8 [id number] Unknown [id number] 2.16.8 [id number] Unknown [id number] 2.16.8 [id number] Unknown [id number] 2.16.8 [id number] Social History Date Type Detail Facility Tobacco smoking status NHIS Unknown if ever smoked [employer] Other Start: 1965 Sex Assigned At Female F [facility] Sex Assigned At Sex Assigned At Bir th [employer] Other Start: 08-13-2023 End: 08-13-2023 Tobacco smoking status NHIS Never smoked tobacco (finding) [facility] Goals Date Patient Goal Desired Activity /State Clinical Notes 11-16-2021 to 12-11-2023 Note Date & Type Note Facility 12-11-2023 Evaluation note Authored December 11, 2023 9:49 am Abdominal cramping, abdomina l pain, 1-2 weekly bowel movements, patient negative for rectal bleeding [facility] Work Phone: [phone] [facility]* Encounter Date Diagnosis Assessment Notes [...] Sadler. Recheck w MRI in September 2023. [employer] Other 04-14-2023 Evaluation note* Encounter Date Diagnosis Assessment Notes Treatment Notes Treatment Clinical Notes Sep, Screening mammogram for breast cancer (ICD-10 - Z12.31) [employer] Other 06-13-2022 Evaluation note* Encounter Date Diagnosis [...] Torres neurology which I think is appropriate. [employer] Other 05-25-2022 Evaluation note* Encounter Date Diagnosis [...] not have meningiomas in her cervical spine. [employer] Other evaluation noteNo assessment information available [facility] Work Phone: Evaluation noteNo [facility] Other Evaluation note* Diagnosis Onset Date Resolution Status Constipation acute Hemorrhoids acute [facility] Work Phone: Evaluation note* Diagnosis Onset Date Resolution Status Constipation acute Hemorrhoids acute Irritable bowel syndrome with constipation acute [facility] Work Phone: Evaluation note* Diagnosis Onset Date Resolution Status Constipation acute Hemorrhoids acute Irritable bowel syndrome with constipation acute Meningioma acute [facility] Work Phone: Evaluation note* Diagnosis Onset Date Resolution Status Constipation acute Hemorrhoids acute Irritable bowel syndrome with constipation acute Carpal tunnel syndrome, bilateral acute Meningioma acute Irritable bowel syndrome with constipation acute [facility] Work Phone: History and physical note Author Rigo Chance [facility] August 13, 2023 10:42am Note Date/Time August 13, 2023 10:42am [facility] [address] [place] [address] Gastroenterology H&P Signed Patient: Melodie Corbin MR#: [id number] : 1965 Acct:[id number] Age/Sex: 58 / F Adm Date: 4 Loc: Room: Type: [facility] Attending Dr: Rigo Chance MD [...] signed by Rigo Chance MD> 08/13/23 1042 [facility] Work Phone: History general Narrative - Reported* Type Description Date Medical History Hearing loss, left Medical History Acute middle ear effusion, left Medical History hypertension Medical History GERD Medical History migraine headaches Surgical History appendectomy 1980 Surgical History tonsillectomy 1980 Surgical History discectomy 2000 Surgical History breast biopsies Surgical History cholecystectomy 2006 Hospitalization History see sx history [facility] Other History general Narrative - Reported* Type Description Date Medical History Hearing loss, left Medical History Acute middle ear effusion, left Medical History hypertension Medical History GERD Medical History migraine headaches Surgical History appendectomy 1981 Surgical History tonsillectomy 1980 Surgical History discectomy 2000 Surgical History breast biopsies Surgical History cholecystectomy 2006 Surgical History Back injections 05/2023 Hospitalization History see sx history [facility] Other Hospital Discharge instructionsAmbulatory Orders* Referral to Neurology Time Frame: 11/13/23, Location: None Selected [facility] Work Phone: Summary Purpose Family History Relationship [...] DATE CREATED AUTHOR AUTHOR'S ORGANIZ ATION 12/14/2023 [facility] EPIC DATE CREATED AUTHOR AUTHOR'S ORGANIZ ATION 02/10/2024 [facility] Care Teams (unrecognized sec tion and content) Team Status: Inactive Member Role Status Dates Shira Sadler MD Primary Care Provider Active John aNth MD Attending Provider Active Team Status: Active Member Role Status Dates Shira Sadler MD Primary Care Provider Active Team Status: Inactive Member Role Status Dates Shira Sadler MD Primary Care Provider Active Travis Sadler MD Attending Provider Active Team Status: Inactive Member Role Status Dates Shira Sadler MD Primary Care Provider Active Gale Reyez APRN-FAMILY THERAPIST-C Attending Provider Active Team Status: Inactive Member [...] pacsNEW MRI results test done 12/03/21 at [facility] paperworklabsrefillRefillsMAIL PPW FOR RECORDS PERTAINING [...] BE BASED ON THE PRIMARY CLINICAL RECORDS. [email or web address] [facility]. provides no warranty or guarantee of the accuracy or completeness of information in this document.
[2024-04-18 10:27] VITALS: BP 122/60; PULSE 77; O2SAT 98
== END 2024-04-18 10:29 | disposition home or self-care (01) ==
LOC: VC 09:18
PROVIDERS: PCP Radiology Diagnostic Radiology; Visit Provider Radiology Diagnostic Radiology
DX: I83.813 Varicose veins of bilateral lower extremities with pain (principal)
CPT/HCPCS: 36466

== ENCOUNTER 2024-04-23 10:52 | Outpatient (OUT) | payer BC, SELFPAY ==
--- NOTE | 2024-04-23 10:53 | VEIN_ITS ---
Patient Name: WILFRED CORBIN MR#: [id number] : 1965 Exam Date: 04/23/2024 Ordering Doctor: DR SHIVA ASH M.D. RADIOLOGY REPORT PROCEDURE: [facility] EST [facility] - OFFICE VISIT FOLLOW UP COMPARISON: [facility], 04/09/2024. PROGRESS NOTES: The patient reports improvement in leg symptoms. There has been interval reduction in varicosities. The patient has followed our recommendations to walk 20-30 minutes once or twice per day since the procedure. Physical exam demonstrates decrease in varicosities of the leg. Persistent varicosities are identified along the right leg. Review of the ultrasound performed the same day demonstrates occlusive thrombus extending throughout the treated vein(s), see separate report, consistent with a successful ablation. No thrombus extending into or beyond the saphenofemoral junction. The patient expressed a desire to proceed with treatment of remaining incompetent varicosities. The patient was informed that treatment was a process and would require 1-2 procedures/sessions. [facility]: 1. Successful ablation of the left leg treated branch saphenous vein(s). 2. Persistent right leg varicose veins and lower extremity symptoms. PLAN: 1. Microfoam chemical ablation of right leg incompetent branch saphenous varicosities. Nurse notes, history and physical were reviewed and confirmed, see attached forms. The nurse was present throughout the physical exam and consultation Dictated by: Shiva Ash M.D. on 04/23/2024 at 12:40 Approved by: Shiva Ash M.D. on 04/23/2024 at 12:41
--- NOTE | 2024-04-23 10:53 | VEIN_ITS ---
Patient Name: WILFRED CORBIN MR#: [id number] : 1965 Exam Date: 04/23/2024 Ordering Doctor: DR SHIVA MOTA M.D. RADIOLOGY REPORT PROCEDURE: VC EXT VENOUS LT LIMITED COMPARISON: VC EXT VENOUS LT LIMITED, 03/26/2024. INDICATIONS: I80.02 - Phlebitis and thrombophlebitis of superficial veins left leg TECHNIQUE: Lower extremity mariee scale and Duplex Doppler evaluation of the deep venous system from the inguinal ligament through the calf veins. FINDINGS: REGION: Left lower extremity. THROMBI: Negative for DVT. Chemically induced thrombus in left leg varicose veins. COMPRESSIBILITY: Non-compressible segments corresponding to thrombus FLOW: Areas of no flow corresponding to thrombus OTHER: No significant varicosities remain. CONCLUSION: 1. Successful post ablation occlusion of left leg treated branch saphenous varicosities. Dictated by: Shiva Mota M.D. on 04/23/2024 at 11:54 Approved by: Shiva Mota M.D. on 04/23/2024 at 12:40
--- OUTSIDE RECORDS SUMMARY | 2024-04-23 11:00 | XMS_ITS | CCD ---
Author Organization [facility] [employer] Care Team Providers Care Cooling Tower Technician Name Role Phone Juan Miguel Campbell Unavailable [...] MD Shira Sadler Primary Care Provider GABBY Reyez-INSPECTOR RAW QUARTZ-Ophelia Gonzalze Attending Provider Rigo Chance Unavailable MD Shira Sadler Primary Care Provider MD Rigo Chance Attending Provider MD Shira Sadler Primary Care Provider MD Rigo Chance Attending Provider [phone] MD Marcos Weinberg Attending Provider MD Shira Sadler Primary Care Provider MD Travis Sadler Attending Provider [phone] MARIANNA TORRES Attending Unavailable TRAVIS SADLER [...] physicia Propensity to adverse reactions 7 Comment:Done [facility] Other (4 sources) Allergies Reconciled Propensity to adverse reactions Unknown [facility] Other Medications Current Medications Medication Drug Class(es) [...] 2023 11:37am take 1 capsule by mo [facility] three times daily Gabapentin 300 MG [...] BY MOUTH AT BEDTIME for 90 Active Tl-Zea-Velqj Acid-Lutein (Centrum Silver) 400-250 mcg Tablet,Chewable (14 sources) Start: 06-19-2019 take 1 tablet by mouth once daily Vv-Ehu-Eyobm Acid-Lutein (Centrum Silver) 400-250 mcg Tablet,Chewable Active 1 TAB PO Daily June 19, 2019 9:17am Start: 06-19-2019 take 1 tablet by karis th once daily Kj-Vcg-Jjbou Acid-Lutein (Centrum Silver) 400-250 mcg Tablet,Chewable Active 1 TAB PO Daily June 19, 2019 12:00am Start: 06-19-2019 take 1 tablet by karis th once daily Cl-Pvr-Okiie Acid-Lutein (Centrum Silver) 400-250 mcg Tablet,Chewable Active [...] Start: 03-02-2023 take 1 capsule by mo [facility] every twenty-four hours Nortriptyline HCl 10 MG 1 capsule Orally Once a day for 90 days Feb, Active [place] 3 1000 MG (7 sources) take 1 capsule by mouth once daily [place] 3 1000 MG 1 capsule Orally Once a day Active [place] 9-Fya-Hgr-Fish Oil (Fish Oil) 360-1,200 mg Capsule,Delayed Release(Dr/Ec) (14 sources) Start: 06-19-2019 take 360-1200 mg by mouth once daily [place] 3-Rkx-Tst-Fish Oil (Fish Oil) 360-1,200 mg Capsule,Delayed Release(Dr/Ec) Active 1 CAP PO Daily June 19, 2019 9:17am Start: 06-19-2019 End: 08-13-2023 take 360-1200 mg by mouth once daily [place] 3-Zmp-Pgb-Fish Oil (Fish Oil) 360-1,200 mg Capsule,Delayed Release(Dr/Ec) Discontinued 1 CAP PO Daily June 19, 2019 1:00am August 13, 2023 11:36am Start: 06-19-2019 End: 08-13-2023 take 360-1200 mg by mouth once daily [place] 3-Kdv-Ryd-Fish Oil (Fish Oil) 360-1,200 mg Capsule,Delayed Release(Dr/Ec) Discontinued 1 CAP PO Daily June 19, 2019 12:00am August 13, 2023 10:36am Start: 06-19-2019 take 360-1200 mg by mouth once daily [place] 1-Mtx-Ixx-Fish Oil (Fish Oil) 360-1,200 mg Capsule,Delayed Release(Dr/Ec) Active 1 CAP PO Daily June 19, 2019 12:00am Start: 06-19-2019 take 360-1200 mg by mouth once daily [place] 0-Gyb-Pcj-Fish Oil (Fish Oil) 360-1,200 mg Capsule,Delayed Release(Dr/Ec) [...] take 600 mg by mouth once daily [place]'s Wort Active 600 MG PO Daily June [...] take 600 mg by mouth once daily [place]'s Wort Active 600 MG PO Daily June [...] on 02-08-2024 Creatinine [Mass/Vol] 0.7 mg/dL [facility] Comment on above: ER/ESD physician is notified/shown all ISTAT results.Critical values may be confirmed by laboratory testing ifdeemed necessary by ER attending doctor. MR lumbar spine wo/w conon 0 02-08-2024 MR lumbar spine wo/w con [facility] [place] [address] [place], [place] [id number] MRI Report Signed Patient: Melodie Corbin MR#: [id number] : 1965 Acct:[id number] Age/Sex: 59 / F ADM Date: 02/08/24 Loc: MR Room: Type: [facility] Attending Dr: Ester Knox APRN Copies to: [...] Romeo Mason M.D.02/08/2024 3:22 PM Dictation Location: [place] [address] Transcribed By: [facility] 02/08/24 1522 Dictated By: Romeo Mason II, MD 02/08/24 1510 Signed By: 02/08/24 1522 Normal [facility] No Panel InformationOrdered By: Ester Knox on 02-08-2024 Bedside Estimated GFR (eGFR) > 60.0 [facility] XR lumbar spine AP/LAT/FLX/E XTon 02-08-2024 XR lumbar spine AP/LAT/FLX/EXT [facility] [place] [address] XRay Report Signed Patient: Melodie Corbin MR#: [id number] : 1965 Acct:[id number] Age/Sex: 59 / F ADM Date: 02/08/24 Loc: MR [facility]: [facility] Attending Dr: Ester Knox APRN [...] Calderon Barreto M.D.02/08/2024 4:02 PM Dictation Location: [place] [address] Transcribed By: [facility] 02/08/24 1602 Dictated By: Calderon Barreto DO 02/08/24 1601 Signed By: 02/08/24 1602 Normal [facility] MR head/brain wo/w conon MR head/brain wo/w con [facility] [place] [address] MRI Report Signed Patient: Melodie Corbin MR#: [id number] : 1965 Acct:[id number] Age/Sex: 58 / F ADM Date: 11/12/23 Loc: Room: Type: [facility] Attending Dr: Travis Sadler MD Copies to: [...] Romeo Mason M.D.11/12/2023 1:16 PM Dictation Location: [place] [address] Transcribed By: [facility] 11/12/23 1316 Dictated By: Romeo Mason II, MD 11/12/23 1308 Signed By: 11/12/23 1316 Normal [facility] MR lumbar spine wo conon MR lumbar spine wo con [facility] [place] [place] [address] MRI Report Signed Patient: Melodie Corbin MR#: [id number] : 1965 Acct:[id number] Age/Sex: 58 / F ADM Date: 10/01/23 Loc: MR Room: Type: [facility] Attending Dr: Marcos Weinberg MD Copies to: [...] Romeo Mason M.D.10/01/2023 12:19 PM Dictation Location: [place] [address] Transcribed By: ADDIE 10/01/23 1219 Dictated By: Romeo Mason II, MD 10/01/23 1206 Signed By: 10/01/23 1219 Normal [facility] XR hips BI 4V adulton 2023 XR hips BI 4V adult [facility] Main [place] [id number] XRay Report Signed Patient: Melodie Corbin MR#: [id number] : 1965 Acct:[id number] Age/Sex: 58 / F ADM Date: 10/01/23 Loc: Room: Type: [facility] CLI Attending Dr: Marcos Weinberg MD Copies [...] Garg Jr., D.OChristiano10/01/2023 10:45 AM Dictation Location: [place] [address] Transcribed By: [facility] 10/01/23 1045 Dictated By: Brandon Garg Jr, DO 10/01/23 1044 Signed By: 10/01/23 1045 Normal [facility] XR pre/post mri xrayon 05-10 XR pre/post mri xray [facility] Main [place] [id number] MRI Report Signed Patient: Melodie Corbin MR#: [id number] : 1965 Acct:[id number] Age/Sex: 58 / F ADM Date: 05/10/23 Loc: [facility] Room: Type: [facility] CLI Attending Dr: Gale RIVAS Copies to: ROB Easton Ordering Provider: ROB Easton Date of Service: 05/10/23 MR/MR lumbar spine wo con: M46.96 ([id number]) XR/XR pre/post mri xray: M46.96 MR lumbar [...] Romeo Mason M.D.05/10/2023 3:20 PM Dictation Location: [place] [address] Transcribed By: [facility] 05/10/23 1520 Dictated By: Romeo Mason II, MD 05/10/23 1512 Signed By: 05/10/23 1520 Normal [facility] MG MAMM SCREEN 3D SHERRI CADon 10-16-2022 MG MAMM SCREEN 3D SHERRI CAD Patient: MELODIE CORBIN Exam Date: 10/16/2022 : 1965 Gender:F Ordering : DR SHIRA SADLER M.D. Admission #: [id number] Family : Order #: [id number] CLICK HERE TO VIEW EXAM RADIOLOGY REPORT PROCEDURE: MAMMOGRAM SCREENING 3D BILATERAL CAD COMPARISON: None. INDICATIONS: Screening mammography Calculator Name NCI Breast Cancer Risk Assessment Tool 5 Year Breast Cancer Risk 1.80% Lifetime Breast Cancer Risk 10.00% Personal Breast Cancer No Personal Ovarian Cancer No Treatments None Family Cancers Father with prostate cancer at age 78. LOCATION: [facility] BREAST COMPOSITION: Heterogeneously dense,which may obscure small [...] M.D. on 10/16/2022 at 11:20 Normal [facility] Progress Note-Physicianon Protein mass conc Patient: MELODIE CORBIN Age: 53 years Sex: Female : 1965 Associated Diagnoses: None Author: Juan Miguel Campbell DO Subjective Subjective: Patient presents AIRTAME for the first evaluation of an injury [...] basis only. Diagnosis: Contusion of left foot ([id number] S90.32XA, Working, Medical). Normal [facility] Comment on above: Result Comment: Elec tronically Signed By: Juan Miguel Campbell DO\.br\Date and Time Signed: 04/02/18 13:57 EDT Vital Signs Date Time Vital Sign Value Performing Clinician Facility 02-21-2024 09:23-0400 Body height 175.26 cm MD Shira Sadler Work Phone: [facility] 02-21-2024 09:23-0400 Body mass index (BMI) [Ratio] 30.3 kg/m2 MD Shira Sadler Work Phone: [facility] 02-21-2024 09:23-0400 Body weight 93.15 kg MD Shira Sadler Work Phone: [facility] 02-11-2024 13:45-0400 Body height 175.26 cm MD Shira Sadler Work Phone: [facility] 02-11-2024 13:45-0400 Body mass index (BMI) [Ratio] 29.8 kg/m2 MD Shira Sadler Work Phone: [facility] 02-11-2024 13:45-0400 Body weight 91.62 kg MD Shira Sadler Work Phone: [facility] 02-11-2024 13:45-0400 Diastolic blood pressure 81 mm[Hg] MD Shira Sadler Work Phone: [facility] 02-11-2024 13:45-0400 Heart rate 58 /min MD Shira Sadler Work Phone: [facility] 02-11-2024 13:45-0400 Systolic blood pressure 177 mm[Hg] MD Shira Sadler Work Phone: [facility] 02-08-2024 06:43-0400 Body height 175.26 cm MD Shira Sadler Work Phone: [facility] 02-08-2024 06:43-0400 Body weight 86.18 kg MD Shira Sadler Work Phone: [facility] 02-07-2024 09:41-0400 Body height 167.64 cm MD Shira Sadler Work Phone: [facility] 02-07-2024 09:41-0400 Body mass index (BMI) [Ratio] 32.7 kg/m2 MD Shira Sadler Work Phone: [facility] 02-07-2024 09:41-0400 Body weight 92 kg MD Shira Sadler Work Phone: [facility] 01-17-2024 09:53-0400 Body weight 92.07 kg MD Shira Sadler Work Phone: [facility] 12-20-2023 11:37-0400 Body height 167.64 cm MD Shira Sadler Work Phone: [facility] 12-20-2023 11:37-0400 Body mass index (BMI) [Ratio] 32.3 kg/m2 MD Shira Sadler Work Phone: [facility] 12-20-2023 11:37-0400 Body weight 90.71 kg MD Shira Sadler Work Phone: [facility] 12-11-2023 09:33-0400 Body height 167.64 cm MD Shira Sadler Work Phone: [facility] 12-11-2023 09:33-0400 Body mass index (BMI) [Ratio] 32.3 kg/m2 MD Shira Sadler Work Phone: [facility] 12-11-2023 09:33-0400 Body weight 90.71 kg MD Shira Sadler Work Phone: [facility] 12-11-2023 09:33-0400 Diastolic blood pressure 93 mm[Hg] MD Shira Sadler Work Phone: [facility] 12-11-2023 09:33-0400 Heart rate 61 /min MD Shira Sadler Work Phone: [facility] 12-11-2023 09:33-0400 Systolic blood pressure 145 mm[Hg] MD Shira Sadler Work Phone: [facility] 11-13-2023 09:39-0400 Body height 167.64 cm MD Shira Sadler Work Phone: [facility] 11-13-2023 09:39-0400 Body mass index (BMI) [Ratio] 32.1 kg/m2 MD Shira Sadler Work Phone: [facility] 11-13-2023 09:39-0400 Body weight 90.26 kg MD Shira Sadler Work Phone: [facility] 11-12-2023 07:25-0400 Body height 167.64 cm MD Shira Sadler Work Phone: [facility] 11-12-2023 07:25-0400 Body weight 86.18 kg MD Shira Sadler Work Phone: [facility] 09-26-2023 11:17-0400 Body height 167.64 cm MD Shira Sadler Work Phone: [facility] 09-26-2023 10:56-0400 Body height 167.64 cm MD Shira Sadler Work Phone: [facility] 09-26-2023 10:56-0400 Body mass index (BMI) [Ratio] 31.4 kg/m2 MD Shira Sadler Work Phone: [facility] 09-26-2023 10:56-0400 Body weight 88.45 kg MD Shira Sadler Work Phone: [facility] 08-13-2023 11:40-0500 Diastolic blood pressure 68 mm[Hg] MD Shira Sadler Work Phone: [facility] 08-13-2023 11:40-0500 Heart rate 54 /min MD Shira Sadler Work Phone: [facility] 08-13-2023 11:40-0500 Respiratory rate 16 /min MD Shira Sadler Work Phone: [facility] 08-13-2023 11:40-0500 SaO2% (BldA) [Mass fraction] 100 % MD Shira Sadler Work Phone: [facility] 08-13-2023 11:40-0500 Systolic blood pressure 145 mm[Hg] MD Shira Sadler Work Phone: [facility] 08-13-2023 10:39-0500 Body height 167.64 cm MD Shira Sadler Work Phone: [facility] 08-13-2023 10:39-0500 Body temperature 98.5 [degF] MD Shira Sadler Work Phone: [facility] 08-13-2023 10:39-0500 Body weight 88.45 kg MD Shira Sadler Work Phone: [facility] 07-12-2023 10:00-0500 Body height 170.18 cm MD Shira Sadler Work Phone: [facility] 07-12-2023 10:00-0500 Body weight 89.9 kg MD Shira Sadler Work Phone: [facility] 07-12-2023 10:00-0500 Diastolic blood pressure 89 mm[Hg] MD Shira Sadler Work Phone: [facility] 07-12-2023 10:00-0500 Systolic blood pressure 141 mm[Hg] MD Shira Sadler Work Phone: [facility] 01-18-2023 13:15-0400 Body height 170.18 cm Shira Sadler Other [employer] Other 01-18-2023 13:15-0400 Body mass index (BMI) [Ratio] 29.75 kg/m2 Shira Sadler Other [employer] [facility] [employer] Other 01-18-2023 13:15-0400 Body weight 86.18 kg Shira Sadler Other [employer] Other 01-18-2023 13:15-0400 Diastolic blood pressure 87 mm[Hg] Shira Sadler Other [employer] Other 01-18-2023 13:15-0400 Systolic blood pressure 147 mm[Hg] Shira Sadler Other [employer] Other 11-01-2022 07:13-0400 Body height 170.18 cm MD Shira Sadler Work Phone: [facility] 11-01-2022 07:13-0400 Body weight 86.18 kg MD Shira Sadler Work Phone: [facility] 12-05-2021 11:00-0400 Body height 170.18 cm John Nath Other [employer] Other 12-05-2021 11:00-0400 Body mass index (BMI) [Ratio] 29.13 kg/m2 John Nath Other [employer] Other 12-05-2021 11:00-0400 Body weight 84.37 kg John Nath Other [employer] Other 11-16-2021 11:45-0400 Body height 170.18 cm John Nath Other [employer] Other 11-16-2021 11:45-0400 Body mass index (BMI) [Ratio] 29.44 kg/m2 John Nath Other [employer] Other 11-16-2021 11:45-0400 Body weight 85.28 kg John Nath Other [facility] [employer] Other 11-04-2021 07:54-0400 Body height 170.18 cm MD Shira Sadler Work Phone: [facility] 11-04-2021 07:54-0400 Body weight 87.08 kg MD Shira Sadler Work Phone: [facility] Encounters Encounter Date Encounter Type Care Provider Facility Start: 02-21-2024 End: 02-21-2024 ambulatory MD Shira Sadler Work Phone: [facility] Work Phone: Start: 02-21-2024 End: 02-21-2024 Patient encounter procedure MD Shira Sadler Work Phone: [facility] Work Phone: Start: 02-11-2024 End: 02-11-2024 Patient encounter procedure MD Shira Sadler Work Phone: [facility] Work Phone: Start: 02-08-2024 End: 02-08-2024 Patient encounter procedure MD Shira Sadler Work Phone: [facility] [place] Work Phone: Start: 02-08-2024 End: 02-08-2024 ambulatory MD Shira Sadler Work Phone: [facility] Work Phone: Start: 02-07-2024 End: 02-07-2024 ambulatory MD Shira Sadler Work Phone: [facility] Work Phone: Start: 02-07-2024 End: 02-07-2024 Patient encounter procedure MD Shira Sadler Work Phone: [facility] Work Phone: Start: 01-17-2024 End: 01-17-2024 ambulatory MD Shira Sadler Work Phone: [facility] Work Phone: Start: 01-17-2024 End: 01-17-2024 Patient encounter procedure MD Shira Sadler Work Phone: [facility] Neuro[facility] Work Phone: Start: 12-20-2023 End: 12-20-2023 ambulatory MD Shira Sadler Work Phone: [facility] Work Phone: Start: 12-20-2023 End: 12-20-2023 Patient encounter procedure MD Shira Sadler Work Phone: [facility] Neuro[facility] Work Phone: Start: 12-13-2023 End: 12-13-2023 ambulatory MARIANNA TORRES Not Available Start: 12-11-2023 End: 12-11-2023 ambulatory MD Shira Sadler Work Phone: [facility] Work Phone: Start: 12-11-2023 End: 12-11-2023 Patient encounter procedure MD Shira Sadler Work Phone: [facility] Gastroenterology Work Phone: Start: 11-13-2023 End: 11-13-2023 ambulatory MD Shira Sadler Work Phone: [facility] Work Phone: Start: 11-13-2023 End: 11-13-2023 Patient encounter procedure MD Shira Sadler Work Phone: [facility] Neuro[facility] Work Phone: Start: 11-12-2023 End: 11-12-2023 Patient encounter procedure MD Shira Sadler Work Phone: [facility] [place] Work Phone: Start: 11-12-2023 End: 11-12-2023 ambulatory MD Shira Sadler Work Phone: [facility] Work Phone: Start: 10-02-2023 Non-patient / Non-visit MD Shira Sadler Work Phone: [facility] Work Phone: Start: 10-01-2023 End: 10-01-2023 Patient encounter procedure MD Shira Sadler Work Phone: [facility] [place] Work Phone: Start: 10-01-2023 End: 10-01-2023 ambulatory MD Shira Sadler Work Phone: [facility] Work Phone: Start: 09-26-2023 End: 09-26-2023 ambulatory MD Shira Sadler Work Phone: [facility] Work Phone: Start: 09-26-2023 End: 09-26-2023 Patient encounter procedure MD Shira Sadler Work Phone: [facility] Gastroenterology Work Phone: Start: 08-13-2023 Non-patient / Non-visit MD Shira Sadler Work Phone: [facility] Work Phone: Start: 08-13-2023 End: 08-13-2023 Admission to same day surgery center MD Shira Sadler Work Phone: [facility] Work Phone: Start: 08-13-2023 End: 08-13-2023 ambulatory MD Shira Sadler Work Phone: [facility] Work Phone: Start: 07-17-2023 End: 07-17-2023 ambulatory Rigo Chance Other [employer] Other Start: 07-17-2023 Telephone encounter Rigo Chance [facility] Staff [employer] Start: 07-12-2023 End: 07-12-2023 Patient encounter procedure MD Shira Sadler Work Phone: [facility] Start: 05-10-2023 End: 05-10-2023 Patient encounter procedure MD Shira Sadler Work Phone: [facility] [address] Work Phone: Start: 05-10-2023 End: 05-10-2023 ambulatory MD Shira Sadler Work Phone: [facility] Work Phone: Start: 04-24-2023 End: 04-24-2023 ambulatory Shira Sadler Other [employer] Other Start: 04-24-2023 Telephone encounter Shira Sadler [facility] Start: 03-02-2023 End: 03-02-2023 ambulatory Shira Sadler Other [employer] Other Start: 03-02-2023 Telephone encounter Shira Sadler [facility] Start: 02-07-2023 End: 02-07-2023 ambulatory Shira Sadler Other [employer] Other Start: 02-07-2023 Telephone encounter Shira Sadler [facility] Start: 01-18-2023 End: 01-18-2023 ambulatory Shira Sadler Other [employer] Other Start: 01-18-2023 Office outpatient visit 25 minutes Shira Sadler [facility] Start: 11-01-2022 End: 11-01-2022 ambulatory MD Shira Sadler Work Phone: [facility] Work Phone: Start: 11-01-2022 End: 11-01-2022 Patient encounter procedure MD Shira Sadler Work Phone: [facility] [place] Work Phone: Start: 10-16-2022 End: 10-17-[address] SHIRA SADLER Facility: Start: 10-06-2022 End: 10-06-2022 ambulatory Shira Sadler Other [employer] Other Start: 10-06-2022 Telephone encounter Shira Sadler [facility] Start: 12-05-2021 End: 12-05-2021 ambulatory John Nath Other [employer] Other Start: 12-05-2021 Office outpatient visit 15 minutes John Nath [facility] Start: 12-03-2021 End: 12-03-2021 Patient encounter procedure MD Shira Sadler Work Phone: [facility] Start: 11-16-2021 End: 11-16-2021 ambulatory John Nath Other [facility] Other Start: 11-16-2021 Office outpatient visit 15 minutes John Nath [facility] Start: 11-04-2021 End: 11-04-2021 Patient encounter procedure MD Shira Sadler Work Phone: [facility] Start: 04-02-2018 Patient encounter Juan Miguel Palacios ity:[id number] Start: 04-02-2018 End: 04-03-2018 Patient encounter Juan Miguel Campbell Facility:[id number] Procedures Date Procedure Procedure Detail Performing [...] Activity Detail Author Start: 02-11-2024 Patient referral [facility] Work Phone: Start: 11-13-2023 Patient referral [facility] Work Phone: Start: 08-13-2023 [facility] MR Lumbar spine WO a nd W contrast IV [facility] Patient Education Hemorrhoids (DC) [facility] Work Phone: Patient referral [facility] Work Phone: XR Lumbar spine 4 Views [facility] Immunizations Immunization Date Immunization Notes Care Provider Avinash ortega NEGATED: Highlighted row has not occurred!04-16-2019 influenza, high dose seasonal, preservative-free Patient Objection John Nath Other [facility] Other NEGATED: Highlighted row has not occurred!03-24-2019 influenza, high dose seasonal, preservative-free Patient Objection John Nath Other [facility] Other Payers Date Payer Category Payer Self-pay [id number] 2018 Worker's Compensation [id number] 1965 Unknown [id number] 2.16.84 [id number] 1965 Unknown [id number] 2.16.84 [id number] 1965 Unknown [id number] 2.16.84 [id number] 1960 Unknown [id number] Unknown [id number] 2.16.8 [id number] Unknown [id number] 2.16.8 [id number] Unknown [id number] 2.16.8 [id number] Unknown [id number] 2.16.8 [id number] Unknown [id number] 2.16.8 [id number] Social History Date Type Detail Facility Tobacco smoking status NHIS Unknown if ever smoked [facility] Other Start: 1965 Sex Assigned At Female F [facility] Sex Assigned At Sex Assigned At Bir th [facility] Other Start: 08-13-2023 End: 08-13-2023 Tobacco smoking status NHIS Never smoked tobacco (finding) [facility] Goals Date Patient Goal Desired Activity /State Clinical Notes 11-16-2021 to 12-11-2023 Note Date & Type Note Facility 12-11-2023 Evaluation note Authored December 11, 2023 9:49 am Abdominal cramping, abdomina l pain, 1-2 weekly bowel movements, patient negative for rectal bleeding [facility] Work Phone: 1(280) 767-570202-19-2024 [facility]* [...] Sadler. Recheck w MRI in September 2023. [facility] Other 04-14-2023 Evaluation note* Encounter Date Diagnosis Assessment Notes Treatment Notes Treatment Clinical Notes Sep, Screening mammogram for breast cancer (ICD-10 - Z12.31) [facility] Other 06-13-2022 Evaluation note* Encounter Date Diagnosis [...] Torres neurology which I think is appropriate. [facility] Other 05-25-2022 Evaluation note* Encounter Date Diagnosis [...] not have meningiomas in her cervical spine. [facility] Other evaluation noteNo assessment information available [facility] Work Phone: Evaluation noteNo [employer] Other Evaluation note* Diagnosis Onset Date Resolution Status Constipation acute Hemorrhoids acute [facility] Work Phone: Evaluation note* Diagnosis Onset Date Resolution Status Constipation acute Hemorrhoids acute Irritable bowel syndrome with constipation acute [facility] Work Phone: Evaluation note* Diagnosis Onset Date Resolution Status Constipation acute Hemorrhoids acute Irritable bowel syndrome with constipation acute Meningioma acute [facility] Work Phone: Evaluation note* Diagnosis Onset Date Resolution Status Constipation acute Hemorrhoids acute Irritable bowel syndrome with constipation acute Carpal tunnel syndrome, bilateral acute Meningioma acute Irritable bowel syndrome with constipation acute [facility] Work Phone: History and physical note Author Rigo Chance [facility] August 13, 2023 10:42am Note Date/Time August 13, 2023 10:42am [facility] [address] [place] [address] Gastroenterology H&P Signed Patient: Melodie Corbin MR#: [id number] 05 : 1965 Acct:[id number] Age/Sex: 58 / F Adm Date: 4 Loc: Room: Type: [facility] Attending Dr: Rigo Chance MD Copies [...] signed by Rigo Chance MD> 08/13/23 1042 [facility] Work Phone: History general Narrative - Reported* Type Description Date Medical History Hearing loss, left Medical History Acute middle ear effusion, left Medical History hypertension Medical History GERD Medical History migraine headaches Surgical History appendectomy 1980 Surgical History tonsillectomy 1980 Surgical History discectomy 2000 Surgical History breast biopsies Surgical History cholecystectomy 2006 Hospitalization History see sx history Digg Other History general Narrative - Reported* Type Description Date Medical History Hearing loss, left Medical History Acute middle ear effusion, left Medical History hypertension Medical History GERD Medical History migraine headaches Surgical History appendectomy 1981 Surgical History tonsillectomy 1980 Surgical History discectomy 2000 Surgical History breast biopsies Surgical History cholecystectomy 2006 Surgical History Back injections 05/2023 Hospitalization History see sx history [facility]g Other Hospital Discharge instructionsAmbulatory Orders* Referral to Neurology Time Frame: 11/13/23, Location: None Selected [facility] Work Phone: Summary Purpose Family History [...] DATE CREATED AUTHOR AUTHOR'S ORGANIZ ATION 12/14/2023 [facility] EPIC DATE CREATED AUTHOR AUTHOR'S ORGANIZ ATION 02/10/2024 [facility] ys[facility] Group Care Teams (unrecognized [...] MD Primary Care Provider Active Gale Reyez APRN-INSPECTOR [employer] QUARTZ-C Attending Provider Active Team Status: Inactive Member [...] Team Status: Inactive Member Role Status Dates Shiar Sadler MD Primary Care Provider Active Start: [...] BE BASED ON THE PRIMARY CLINICAL RECORDS. [employer] [facility]. provides no warranty or guarantee of the accuracy or completeness of information in this document.
[2024-04-23 12:22] VITALS: BMI 29.7
--- NOTE | 2024-04-23 12:22 | VEINCLINIC_ITS ---
Vital Signs 04/23/24 12:22 Height 5 ft 7 in Weight 86 kg BMI 29.7 Varicose Veins Patient in today for follow up ultrasound of left lower extremity following treatment of Varithena/microfoam completed on 04/18/24. Ariel Webb MD personally performed the services described in this documentation, as scribed by Desi Rees RDMS in my presence and it is both accurate and complete. Desi Webb RDMS, am scribing for, and in the presence of, Dr. Krystian Mota and in the presence of the patient. thigh: bilateral, knee: bilateral, calf: bilateral, ankle: bilateral and mcfarland: bilateral aching, cramping, intermittent and tender 8 5 years Worsened in recent months: Yes standing and walking elevating extremities Reports fatigue, heaviness, limb pain and leg edema History of lower extremity trauma: No Superficial thrombophlebitis: No Family history of varicose veins: yes Has patient had previous lower extremity venous surgery: No Patient has previously received the following treatment(s) for lower extremity varicose veins: Reports none Does patient have a history of : no Does patient intend to have future pregnancies: no Has patient had lower extremity venous scan with relux testing: Yes Support hose used: Yes Problems walking or doing physical activity: Yes How does it affect you: Unable to walk long distances, effects work requirements standing Do you walk much: Yes Do you stand much: Yes Review of Systems ROS Narrative Ariel Webb MD personally performed the services described in this documentation, as scribed by Desi Rees RDMS in my presence and it is both accurate and complete. Desi Webb RDMS, am scribing for, and in the presence of, Dr. Krystian Mota and in the presence of the patient. Status of ROS 10 or more systems reviewed and unremark able except as noted in history and below Cardiovascular Reports: edema and swelling of feet/ankles Musculoskeletal Reports: extremity pain, extremity swelling, joint pain, joint swelling and muscle cramps Integumentary/Breast Reports: itching, skin pain, skin tenderness and skin swelling [facility] Medical History (Updated 04/03/24 @ 07:54 by Annia Olson RN) Phlebitis and thrombophlebitis of superficial vessels of right lower extremity ?I80.01 - Phlebitis and thrombophlebitis of superficial vessels of right lower extremity (ICD-10) Phlebitis and thrombophlebitis of superficial vessels of left lower extremity ?I80.02 - Phlebitis and thrombophlebitis of superficial vessels of left lower extremity (ICD-10) FH: cholecystectomy ?Z83.79 - Family history of other diseases of the digestive system (ICD-10) Depression ?F32.A - Depression, unspecified (ICD-10) Hypercholesteremia ?E78.00 - Pure hypercholesterolemia, unspecified (ICD-10) Hypertension ?I10 - Essential (primary) hypertension (ICD-10) Pain due to varicose veins of both lower extremities ?I83.813 - Varicose veins of bilateral lower extremities with pain (ICD-10) Surgical History (Updated 04/18/24 @ 10:39 by Ricki Horowitz) S/P sclerotherapy of varicose veins ?Z98.890 - Other specified postprocedural states (ICD-10) ?Z86.79 - Personal history of other diseases of the circulatory system (ICD- 10) Status post laser ablation of incompetent vein ?Z98.890 - Other specified postprocedural states (ICD-10) History of tonsillectomy ?Z90.89 - Acquired absence of other organs (ICD-10) History of appendectomy ?Z90.49 - Acquired absence of other specified parts of digestive tract (ICD- 10) Family History (Updated 03/04/24 @ 08:30 by Annia Olson RN) Mother Family history of CHF (congestive heart failure) Family history of cancer Family history of hypertension Family history of myocardial infarction Family history of stroke Uncle Family history of CHF (congestive heart failure) Father Family history of cancer Family history of hypertension Sister Family history of diabetes mellitus Family history of hypertension Social History (Updated 03/04/24 @ 08:31 by Annia Olson RN) Within the past year, how often did you have a drink containing alcohol: never Score interpretation: A score less than 3 is consistent with normal alcohol consumption. Smoking status: Never smoker Non-prescribed substance use: former substance user Meds Home Medications and Allergies Home Medications ?Medication ?Instructions ?Recorded ?Confirmed ?Type duloxetine 60 mg capsule,delayed 60 mg PO DAILY 03/04/24 03/04/24 History release (Cymbalta) gabapentin 600 mg tablet 600 mg PO TID 03/04/24 03/04/24 History multivit with min-folic 1 tab PO DAILY 03/04/24 03/04/24 History acid-lutein 400 mcg-250 mcg chewable tablet (Centrum Silver) nortriptyline 10 mg capsule 10 mg PO DAILY 03/04/24 03/04/24 History (Pamelor) rosuvastatin 20 mg tablet 20 mg PO DAILY 03/04/24 03/04/24 History Allergies Allergy/AdvReac Type Severity Reaction Status Date / Time No Known Drug Allergies Allergy Unverified 03/04/24 08:34 Exam Narrative Exam Narrative: Ariel Webb MD personally performed the services described in this documentation, as scribed by Desi Rees RDMS in my presence and it is both accurate and complete. Desi Webb RDMS, am scribing for, and in the presence of, Dr. Krystian Mota and in the presence of the patient. Constitutional Documenting provider has reviewed patient's vital signs: yes Common normals: oriented x3 Nutritional appearance: overweight Lymph Lymphatic: no lymphedema noted Cardio Peripheral pulses: posterior tibial pulses present and dorsalis pedis pulses present Extremity General: calf tenderness, edema and other findings Right lower extremity: lower leg Right lower leg: inspection and palpation Left lower extremity: lower leg Left lower leg: inspection and palpation Neuro Common normals: oriented x3 Results Imaging Venous US: Radiologist's impression: Chemically induced thrombus in left varicose veins. Ariel Webb MD personally performed the services described in this documentation, as scribed by Desi Rees RDMS in my presence and it is both accurate and complete. Desi Webb RDMS, am scribing for, and in the presence of, Dr. Krystian Mota and in the presence of the patient. Assessment and Plan Assessment and Plan (1) Phlebitis and thrombophlebitis of superficial vessels of left lower extremity: Plan Plan is for patient to return for Varithena/microfoam of right leg on 05/01/24. Ariel Webb MD personally performed the services described in this documentation, as scribed by Desi Rees RDMS in my presence and it is both accurate and complete. I, Desi Rees RDMS, am scribing for, and in the presence of, Dr. Krystian Mota and in the presence of the patient.
--- NOTE | 2024-04-23 15:59 | W.VEIN ---
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
== END 2024-04-23 16:00 | disposition home or self-care (01) ==
PROVIDERS: PCP Radiology Diagnostic Radiology; Visit Provider Radiology Diagnostic Radiology
DX: I80.02 Phlebitis and thrombophlebitis of superficial vessels of left lower extremity (principal)
CPT/HCPCS: 93971; G0463

== ENCOUNTER 2024-05-01 08:21 | Outpatient (OUT) | payer BC, SELFPAY ==
--- NOTE | 2024-04-29 14:58 | V.VEINS.HP ---
Vital Signs 05/01/24 09:03 BP 133/81 BP Location Right Brachial BP Position Sitting BP Cuff Size Adult BP Source Manual Cuff Respiration 18 Pulse 61 Pulse Oximetry (%) 95 Oxygen Delivery Method Room Air Comment The patient's blood pressure is elevated. Varicose Veins Patient in today for Varithena/microfoam chemical ablation right leg. Ariel Webb MD personally performed the services described in this documentation, as scribed by Annia Olson RN in my presence and it is both accurate and complete. Annia Webb RN, am scribing for, and in the presence of, Dr. Ariel Mota and in the presence of the patient. thigh: bilateral, knee: bilateral, calf: bilateral, ankle: bilateral and mcfarland: bilateral aching, cramping, intermittent and tender 8 5 years Worsened in recent months: Yes standing and walking elevating extremities Reports fatigue, heaviness, limb pain and leg edema History of lower extremity trauma: No Superficial thrombophlebitis: No Family history of varicose veins: yes Has patient had previous lower extremity venous surgery: No Patient has previously received the following treatment(s) for lower extremity varicose veins: Reports none Does patient have a history of : no Does patient intend to have future pregnancies: no Has patient had lower extremity venous scan with relux testing: Yes Support hose used: Yes Problems walking or doing physical activity: Yes How does it affect you: Unable to walk long distances, effects work requirements standing Do you walk much: Yes Do you stand much: Yes Review of Systems ROS Narrative Ariel Webb MD personally performed the services described in this documentation, as scribed by Annia Olson RN in my presence and it is both accurate and complete. Annia Webb RN, am scribing for, and in the presence of, Dr. Ariel Mota and in the presence of the patient. Status of ROS 10 or more systems reviewed and unremarkable except as noted in history and below Cardiovascular Reports: edema and swelling of feet/ankles Musculoskeletal Reports: extremity pain, extremity swelling, joint pain, joint swelling and muscle cramps Integumentary/Breast Reports: itching, skin pain, skin tenderness and skin swelling [facility] Medical History (Updated 04/03/24 @ 07:54 by Annia Olson RN) Phlebitis and thrombophlebitis of superficial vessels of right lower extremity ?I80.01 - Phlebitis and thrombophlebitis of superficial vessels of right lower extremity (ICD-10) Phlebitis and thrombophlebitis of superficial vessels of left lower extremity ?I80.02 - Phlebitis and thrombophlebitis of superficial vessels of left lower extremity (ICD-10) FH: cholecystectomy ?Z83.79 - Family history of other diseases of the digestive system (ICD-10) Depression ?F32.A - Depression, unspecified (ICD-10) Hypercholesteremia ?E78.00 - Pure hypercholesterolemia, unspecified (ICD-10) Hypertension ?I10 - Essential (primary) hypertension (ICD-10) Pain due to varicose veins of both lower extremities ?I83.813 - Varicose veins of bilateral lower extremities with pain (ICD-10) Surgical History (Updated 04/18/24 @ 10:39 by Ricki Horowitz) S/P sclerotherapy of varicose veins ?Z98.890 - Other specified postprocedural states (ICD-10) ?Z86.79 - Personal history of other diseases of the circulatory system (ICD-10) Status post laser ablation of incompetent vein ?Z98.890 - Other specified postprocedural states (ICD-10) History of tonsillectomy ?Z90.89 - Acquired absence of other organs (ICD-10) History of appendectomy ?Z90.49 - Acquired absence of other specified parts of digestive tract (ICD-10) Family History (Updated 03/04/24 @ 08:30 by Annia Olson RN) Mother Family history of CHF (congestive heart failure) Family history of cancer Family history of hypertension Family history of myocardial infarction Family history of stroke Uncle Family history of CHF (congestive heart failure) Father Family history of cancer Family history of hypertension Sister Family history of diabetes mellitus Family history of hypertension Social History (Updated 03/04/24 @ 08:31 by Annia Olson RN) Within the past year, how often did you have a drink containing alcohol: never Score interpretation: A score less than 3 is consistent with normal alcohol consumption. Smoking status: Never smoker Non-prescribed substance use: former substance user Meds Home Medications and Allergies Home Medications ?Medication ?Instructions ?Recorded ?Confirmed ?Type duloxetine 60 mg capsule,delayed 60 mg PO DAILY 03/04/24 03/04/24 History release (Cymbalta) gabapentin 600 mg tablet 600 mg PO TID 03/04/24 03/04/24 History zykycillvjww-dskbpoi-vndqy acid 1 tab PO DAILY 03/04/24 03/04/24 History 400 mcg-lutein 250 mcg chewable tablet (Centrum Silver) nortriptyline 10 mg capsule 10 mg PO DAILY 03/04/24 03/04/24 History (Pamelor) rosuvastatin 20 mg tablet 20 mg PO DAILY 03/04/24 03/04/24 History Allergies Allergy/AdvReac Type Severity Reaction Status Date / Time No Known Drug Allergies Allergy Unverified 03/04/24 08:34 Exam Narrative Exam Narrative: IAriel MD personally performed the services described in this documentation, as scribed by Annia Olson RN in my presence and it is both accurate and complete. IAnnia RN, am scribing for, and in the presence of, Dr. Ariel Mota and in the presence of the patient. Constitutional Documenting provider has reviewed patient's vital signs: yes Common normals: oriented x3 Nutritional appearance: overweight Lymph Lymphatic: no lymphedema noted Cardio Peripheral pulses: posterior tibial pulses present and dorsalis pedis pulses present Extremity General: calf tenderness, edema and other findings Right lower extremity: lower leg Right lower leg: inspection and palpation Left lower extremity: lower leg Left lower leg: inspection and palpation Neuro Common normals: oriented x3 Assessment and Plan Assessment and Plan (1) Pain due to varicose veins of both lower extremities: Plan leg microfoam chemical ablation/Varithena: Risks and benefits of the procedure were discussed at length and informed written consent was obtained.? Time-out procedure was performed and the correct patient and procedure were confirmed.? Staff present during time-out: Annia Olson RN and Ariel Mota MD.? Patient prepped and procedure performed in usual sterile fashion.? Patient was placed in Trendelenburg prior to Polidocanol/Varithena injections. Sclerosing Agent:?? 4cc 1% Polidocanol/Varithena Site Injected: right leg Number of Injections:? 5cc into 5mm vein right distal medial lower leg 3cc into 4mm vein right mid medial thigh The patient tolerated the procedure well without complication.? Hemostasis was obtained and thigh-high compression stocking was applied with foam pads.? Instructed patient to wear stocking for at least 96 hours and sleep with it and only remove for showering.? The patient was instructed to? wear stocking for 2 weeks.? Patient verbalizes understanding and states they will comply.? Patient was given post-procedure instructions. Patient was discharged in good condition.? Scheduled to undergo limited venous ultrasound and? exam on 05/09/24. IAriel MD personally performed the services described in this documentation, as scribed by Annia Olson RN in my presence and it is both accurate and complete. Annia Webb RN, am scribing for, and in the presence of, Dr. Ariel Mota and in the presence of the patient. Procedures Procedure Note Procedure: Varithena/microfoam chemical ablation right leg 05/01/24
--- NOTE | 2024-04-29 15:01 | P.DS_ITS ---
Discharge Plan Discharge Disposition: Home, Self-Care Outpatient Diagnostics: VC Facility EST LMTD (Routine) Timeframe: 2 Weeks Facility: [facility] - Location: Vein Center Ordered By: Ariel Mota VC EXT Venous RT LMTD (Routine) Timeframe: 2 Weeks Facility: [facility] - Location: Vein Center Ordered By: Ariel Mota Follow Up Appointments: 05/09/24 Plan of Treatment: u/s follow up following varithena right leg 05/01/24 Patient Instructions: Polidocanol (By injection) Print Language: Nepali Discharge Date/Time: 05/01/24 09:02
--- NOTE | 2024-05-01 08:27 | VEIN_ITS ---
[address] [address] Patient Name: WILFRED CORBIN MRN: [id number] date: 1965 Sex: F Assigned Patient Location: Current Patient Location: Accession/Order Number: [id number] Exam Date: 05/01/2024 08:25 Report Date: 05/01/2024 10:16 At the request of: SHIVA ASH Procedure: VC INJ Foam Sclerosant WUS TALENT MANAGEMENT SPECIALIST PROCEDURE: VC INJ Foam Sclerosant WUS TALENT MANAGEMENT SPECIALIST HISTORY: I83.813 - Varicose veins of bilateral lower extremities w... Pre-operative Diagnosis: CEAP class C3 venous insufficiency with pain, tenderness, edema and incompetent branch saphenous vein(s), chronic venous insufficiency right leg secondary to venous incompetence Post-operative Diagnosis: CEAP class C3 venous insufficiency with pain, tenderness, edema and incompetent branch saphenous vein(s), chronic venous insufficiency right leg secondary to venous incompetence Procedure Performed: 1. Ultrasound-guided microfoam chemical ablation with Varithenaregistered 2. Intraoperative ultrasound guidance Physician: Shiva Ash M.D. Anesthesia: None Indications for Procedure: 59 year old female. Symptoms including lower extremity pain, swelling, dilated bulging veins for many years despite conservative medical therapy including medical compression stockings, exercise and analgesics. Prior procedures include endovenous laser ablation and microfoam chemical ablation. Multiple incompetent varicosities of the right leg. Duplex scan showed reflux and enlarged diameters up to 5 mm. The patient underwent informed consent including management options where the complications of infection, bleeding, pain, and skin injury were discussed. Particular attention was spent discussing thrombus extension and deep vein thrombosis as well as the possibility of pulmonary embolus and treatment with oral or injectable blood thinners. Procedure: The patient walked to the procedure room. All applicable staff donned appropriate apparel. A procedure timeout was performed to confirm correct patient, correct extremity, correct procedure, and correct room set-up including presence of all applicable supplies, devices, and drugs. A duplex ultrasound, performed by myself confirmed the location and incompetence of branch saphenous varicosities and their course was marked on the skin together with the dilated tributaries. The extent of treatment of the vein and the associated varicosities was determined through ultrasound mapping. The skin was prepped and then punctured with a butterfly needle and advanced under ultrasound guidance. The Varithenaregistered canister was activated and the canister was primed and purged as required in the instructions for use. Varithenaregistered was drawn into a sterile syringe. Varithenaregistered was slowly administered at 0.5-1.0 cc/second with close observation by ultrasound of its course in the vessels. Total volume utilized was: 8 mL (5 mL into a 5 mm varicosity distal medial lower right leg; 3 mL into a 4 mm varicosity mid medial thigh). Following administration of Varithenaregistered the leg was elevated and the patient was asked to repeatedly dorsiflex the ankle to limit flow of Varithenaregistered into perforating veins. Once appropriate spasm had been confirmed in the treated veins, the vascular catheter was removed from the leg and light pressure was applied over the puncture site for hemostasis. The common femoral and deep superficial veins were then evaluated for flow and compressibility prior to dressing placement. The lower extremity was kept elevated at 45 degrees above the horizontal and cording material was applied over the saphenous segments and tributaries to allow for eccentric compression over the target vessels including the targeted saphenous vein(s). A multilayer dressing was applied consisting of foam pads, coban and thigh-high 20-30 mm Hg compression elastic support hose were placed on the patient. The leg was lowered only after compression had been applied and the patient was immediately ambulatory. The patient ambulated 10 minutes under supervision and was without apparent concerns at time of release. Post-care instructions include advising patient to keep post-treatment bandages in place and dry for 48 hours, avoid extended periods of inactivity, avoid heavy exercise for one week, wear compression stockings on the treated leg continuously for two weeks, to walk daily for 10 minutes over the next month. The patient was instructed to take an anti-inflammatory medicine as needed and to follow up for color duplex scan of the Saphenous veins, the treated branch saphenous varicosities, the adjacent deep veins, and additional treatment within 7 days. PERSONNEL: Annia Olson RN Electronically authenticated by: SHIVA ASH Date: 05/01/2024 10:16
[2024-05-01 09:03] VITALS: BP 133/81; PULSE 61; O2SAT 95
== END 2024-05-01 09:02 | disposition home or self-care (01) ==
LOC: VC 08:21
PROVIDERS: PCP Radiology Diagnostic Radiology; Visit Provider Radiology Diagnostic Radiology
DX: I83.813 Varicose veins of bilateral lower extremities with pain (principal)
CPT/HCPCS: 36466

== ENCOUNTER 2024-05-09 08:46 | Outpatient (OUT) | payer BC, SELFPAY ==
--- NOTE | 2024-05-09 08:48 | VEIN_ITS ---
Patient Name: WILFRED CORBIN MR#: [id number] : 1965 Exam Date: 05/09/2024 Ordering Doctor: DR SHIVA ASH M.D. RADIOLOGY REPORT PROCEDURE: [facility] EST [facility] - OFFICE VISIT FOLLOW UP COMPARISON: [facility], 04/23/2024. PROGRESS NOTES: The patient reports improvement in leg symptoms. There has been interval reduction in varicosities. The patient has followed our recommendations to walk 20-30 minutes once or twice per day since the procedure. Physical exam demonstrates decrease in varicosities of the leg. Persistent small spider veins are identified along the legs bilaterally. No remaining superficial varicosities. Review of the ultrasound performed the same day demonstrates occlusive thrombus extending throughout the treated vein(s), see separate report, consistent with a successful ablation. No thrombus extending into or beyond the saphenofemoral junction. Short segment of thrombus within mid-distal right posterior tibial vein. The patient expressed a desire to hold off on treatment of spider veins and reticular veins until after the holidays VEIN/[facility] EST TD IMPRESSION: 1. Successful ablation of the right leg treated branch saphenous vein(s). 2. Persistent spider veins. PLAN: 1. Patient will contact veins center when ready to finish treatment of bilateral spider veins. 2. Through 25 mg aspirin once per day for 2 weeks to assist in clearing of short segment of deep vein thrombus within mid-distal right posterior tibial vein. Nurse notes, history and physical were reviewed and confirmed, see attached forms. The nurse was present throughout the physical exam and consultation Dictated by: Shiva Ash M.D. on 05/09/2024 at 10:00 Approved by: Shiva Ash M.D. on 05/09/2024 at 10:03
--- NOTE | 2024-05-09 08:48 | VEIN_ITS ---
Patient Name: WILFRED CORBIN MR#: [id number] : 1965 Exam Date: 05/09/2024 Ordering Doctor: DR SHIVA MOTA M.D. RADIOLOGY REPORT PROCEDURE: [facility] EXT VENOUS RT LMTD COMPARISON: [facility] EXT VENOUS RT [facility]MTD, 04/09/2024. INDICATIONS: I80.01 - Phlebitis and thrombophlebitis of superficial ve... TECHNIQUE: Lower extremity mariee scale and Duplex Doppler evaluation of the deep venous system from the inguinal ligament through the calf veins. FINDINGS: REGION: Right lower extremity. THROMBI: Positive for DVT. 3-4 cm segment of DVT at mid PTV. Varithena induced thrombus visualized at mid/med calf and mid/med thigh. COMPRESSIBILITY: Non-compressible segments corresponding to thrombus FLOW: Areas of no flow corresponding to thrombus OTHER: No patent varicose veins remain. CONCLUSION: 1. Successful post ablation occlusion of right leg treated branch saphenous varicosities. 2. Short segment of deep vein thrombus within mid-distal posterior tibial vein. Dictated by: Shiva Mota M.D. on 05/09/2024 at 09:59 Approved by: Shiva Mota M.D. on 05/09/2024 at 10:00
--- OUTSIDE RECORDS SUMMARY | 2024-05-09 09:03 | XMS_ITS | CCD ---
Author Organization [facility] Partnership [facility] Care Team Providers Care Instructional Manager Name Role Phone Juan Miguel Campbell Unavailable [...] Unavailable DR SHIRA SADLER Consulting Unavailable MD Sihra Sadler Primary Care Provider MD Travis Sadler Attending Provider MD Shira Sadler Primary Care Provider GABBY Reyez-CASINO HOST-Ophelia Gonzalez Attending Provider Rigo Chance Unavailable MD Shira Sadler Primary Care Provider MD Rigo Chance Attending Provider MD Shira Sadler Primary Care Provider MD Rigo Chance Attending Provider MD Marcos Weinberg Attending Provider [phone] MD Shira Sadler Primary Care Provider MD Traivs Sadler Attending Provider MARIANNA TORRES Attending Unavailable [...] physicia Propensity to adverse reactions 7 Comment:Done [employer] Other (4 sources) Allergies Reconciled Propensity to adverse reactions Unknown [employer] Other Medications Current Medications Medication Drug Class(es) [...] 2023 11:37am take 1 capsule by [facility] three times daily Gabapentin 300 MG TAKE [...] BY MOUTH AT BEDTIME for 90 Active El-Wwu-Mvopm Acid-Lutein (Centrum Silver) 400-250 mcg Tablet,Chewable (14 sources) Start: 06-19-2019 take 1 tablet by mouth once daily Rw-Eak-Krbdt Acid-Lutein (Centrum Silver) 400-250 mcg Tablet,Chewable Active 1 TAB PO Daily June 19, 2019 9:17am Start: 06-19-2019 take 1 tablet by karis th once daily Ml-Idk-Vpjfh Acid-Lutein (Centrum Silver) 400-250 mcg Tablet,Chewable Active 1 TAB PO Daily June 19, 2019 12:00am Start: 06-19-2019 take 1 tablet by karis th once daily Oj-Vze-Tokck Acid-Lutein (Centrum Silver) 400-250 mcg Tablet,Chewable Active [...] Start: 03-02-2023 take 1 capsule by [facility] every twenty-four hours Nortriptyline HCl 10 MG 1 capsule Orally Once a day for 90 days Feb, Active Rifle 3 1000 MG (7 sources) take 1 capsule by mouth once daily Rifle 3 1000 MG 1 capsule Orally Once a day Active Rifle 6-Svd-Ilm-Fish Oil (Fish Oil) 360-1,200 mg Capsule,Delayed Release(Dr/Ec) (14 sources) Start: 06-19-2019 take 360-1200 mg by mouth once daily Rifle 1-Xkk-Yit-Fish Oil (Fish Oil) 360-1,200 mg Capsule,Delayed Release(Dr/Ec) Active 1 CAP PO Daily June 19, 2019 9:17am Start: 06-19-2019 End: 08-13-2023 take 360-1200 mg by mouth once daily Rifle 5-Cyc-Mxq-Fish Oil (Fish Oil) 360-1,200 mg Capsule,Delayed Release(Dr/Ec) Discontinued 1 CAP PO Daily June 19, 2019 1:00am August 13, 2023 11:36am Start: 06-19-2019 End: 08-13-2023 take 360-1200 mg by mouth once daily Rifle 2-Xpu-Ira-Fish Oil (Fish Oil) 360-1,200 mg Capsule,Delayed Release(Dr/Ec) Discontinued 1 CAP PO Daily June 19, 2019 12:00am August 13, 2023 10:36am Start: 06-19-2019 take 360-1200 mg by mouth once daily Rifle 9-Lzr-Ckg-Fish Oil (Fish Oil) 360-1,200 mg Capsule,Delayed Release(Dr/Ec) Active 1 CAP PO Daily June 19, 2019 12:00am Start: 06-19-2019 take 360-1200 mg by mouth once daily Rifle 9-Pgh-Htj-Fish Oil (Fish Oil) 360-1,200 mg Capsule,Delayed Release(Dr/Ec) [...] take 600 mg by mouth once daily [place]'s Wort Active 600 MG PO Daily June 19, 2019 9:17am Start: 06-19-2019 End: 08-13-2023 take 600 mg by mouth once daily [place]'s Wort Discontinued 600 MG PO Daily June 19, 2019 1:00am August 13, 2023 11:36am Start: 06-19-2019 End: 08-13-2023 take 600 mg by mouth once daily [place]'s Wort Discontinued 600 MG PO Daily June 19, 2019 12:00am August 13, 2023 10:36am Start: 06-19-2019 take 600 mg by mouth once daily Joselyn's Wort Active 600 MG PO Daily June 19, 2019 12:00am Start: 06-19-2019 take 600 mg by mouth once daily [place]'s Wort Active 600 MG PO Daily June [...] on 02-08-2024 Creatinine [Mass/Vol] 0.7 mg/dL 0.6-1.3 [facility] Comment on above: ER/ESD physician is notified/shown all ISTAT results.Critical values may be confirmed by laboratory testing ifdeemed necessary by ER attending doctor. MR lumbar spine wo/w conon 0 02-08-2024 MR lumbar spine wo/w con [facility] Main [place] [address] [place], [place] [id number] MRI Report Signed Patient: Melodie Corbin MR#: [id number] : 1965 Acct:[id number] Age/Sex: 59 / F ADM Date: 02/08/24 Loc: MR Room: Type: [facility] Attending Dr: Ester Knox APRN Copies [...] Romeo Mason M.D.02/08/2024 3:22 PM Dictation Location: [place] [address] Transcribed By: [facility] 02/08/24 1522 Dictated By: Romeo Mason II, MD 02/08/24 1510 Signed By: 02/08/24 1522 Normal [facility] No Panel InformationOrdered By: Ester Knox on 02-08-2024 Bedside Estimated GFR (eGFR) > 60.0 [facility] XR lumbar spine AP/LAT/FLX/E XTon 02-08-2024 XR lumbar spine AP/LAT/FLX/EXT [facility] [place] [address] XRay Report Signed Patient: Melodie Corbin MR#: [id number] : 1965 Acct:[id number] Age/Sex: 59 / F ADM Date: 02/08/24 Loc: MR Room: [facility] Attending Dr: Ester Knox APRN Copies to: [...] Calderon Barreto M.D.02/08/2024 4:02 PM Dictation Location: [place] [address] Transcribed By: [facility] 02/08/24 1602 Dictated By: Calderon Barreto DO 02/08/24 1601 Signed By: 02/08/24 1602 Normal [facility] MR head/brain wo/w conon MR head/brain wo/w con [facility] [place] [place] [address] MRI Report Signed Patient: Melodie Corbin MR#: [id number] : 1965 Acct:[id number] Age/Sex: 58 / F ADM Date: 11/12/23 Loc: Room: Type: [facility] Attending Dr: Travis Sadler MD Copies [...] Romeo Mason M.D.11/12/2023 1:16 PM Dictation Location: [place] [address] Transcribed By: [facility] 11/12/23 1316 Dictated By: Romeo Mason II, MD 11/12/23 1308 Signed By: 11/12/23 1316 Normal [facility] MR lumbar spine wo conon MR lumbar spine wo con [facility] [place] [address] MRI Report Signed Patient: Melodie Corbin MR#: [id number] : 1965 Acct:[id number] Age/Sex: 58 / F ADM Date: 10/01/23 Loc: MR Room: Type: [facility] Attending Dr: Marcos Weinberg MD Copies [...] Romeo Mason M.D.10/01/2023 12:19 PM Dictation Location: [place] [address] Transcribed By: ADDIE 10/01/23 1219 Dictated By: Romeo Mason II, MD 10/01/23 1206 Signed By: 10/01/23 1219 Normal [facility] XR hips BI 4V adulton 2023 XR hips BI 4V adult [facility] Main [place] [id number] XRay Report Signed Patient: Melodie Corbin MR#: [id number] : 1965 Acct:[id number] Age/Sex: 58 / F ADM Date: 10/01/23 Loc: Room: Type: [facility] CLI Attending Dr: Marcos Weinberg MD [...] Garg Jr., D.OChristiano10/01/2023 10:45 AM Dictation Location: [place] [address] Transcribed By: [facility] 10/01/23 1045 Dictated By: Brandon Garg Jr, DO 10/01/23 1044 Signed By: 10/01/23 1045 Normal [facility] XR pre/post mri xrayon 05-10 XR pre/post mri xray [facility] Main [place] [id number] MRI Report Signed Patient: Melodie Corbin MR#: [id number] : 1965 Acct:[id number] Age/Sex: 58 / F ADM Date: 05/10/23 Loc: [facility] Room: Type: [facility] CLI Attending Dr: Gale RIVAS Copies to: ROB Easton Ordering Provider: ROB Easton Date of Service: 05/10/23 MR/MR lumbar spine wo con: M46.96 ([id number]) XR/XR pre/post mri xray: M46.96 MR lumbar [...] Romeo Mason M.D.05/10/2023 3:20 PM Dictation Location: [place] [address] Transcribed By: [facility] 05/10/23 1520 Dictated By: Romeo Mason II, MD 05/10/23 1512 Signed By: 05/10/23 1520 Normal [facility] MG MAMM SCREEN 3D SHERRI CADon 10-16-2022 MG MAMM SCREEN 3D SHERRI CAD Patient: MELODIE CORBIN Exam Date: 10/16/2022 : 1965 Gender:F Ordering : DR SHIRA SADLER M.D. Admission #: [id number] Family : Order #: [id number] CLICK HERE TO VIEW EXAM RADIOLOGY REPORT PROCEDURE: MAMMOGRAM SCREENING 3D BILATERAL CAD COMPARISON: None. INDICATIONS: Screening mammography Calculator Name NCI Breast Cancer Risk Assessment Tool 5 Year Breast Cancer Risk 1.80% Lifetime Breast Cancer Risk 10.00% Personal Breast Cancer No Personal Ovarian Cancer No Treatments None Family Cancers Father with prostate cancer at age 78. LOCATION: [facility] BREAST COMPOSITION: Heterogeneously dense,which may obscure small [...] M.D. on 10/16/2022 at 11:20 Normal [facility] Progress Note-Physicianon Protein mass conc Patient: MELODIE CORBIN Age: 53 years Sex: Female : 1965 Associated Diagnoses: None Author: Juan Miguel Campbell DO Subjective Subjective: Patient presents [employer] for the first evaluation of an injury [...] basis only. Diagnosis: Contusion of left foot (RSF26-TP S90.32XA, Working, Medical). Normal [facility] Comment on above: Result Comment: Elec tronically Signed By: Juan Miguel Campbell DO\.br\Date and Time Signed: 04/02/18 13:57 EDT Vital Signs Date Time Vital Sign Value Performing Clinician Facility 02-21-2024 09:23-0400 Body height 175.26 cm MD Shira Sadler Work Phone: [facility] 02-21-2024 09:23-0400 Body mass index (BMI) [Ratio] 30.3 kg/m2 MD Shira Sadler Work Phone: [facility] 02-21-2024 09:23-0400 Body weight 93.15 kg MD Shira Sadler Work Phone: [facility] 02-11-2024 13:45-0400 Body height 175.26 cm MD Shira Sadler Work Phone: [facility] 02-11-2024 13:45-0400 Body mass index (BMI) [Ratio] 29.8 kg/m2 MD Shira Sadler Work Phone: [facility] 02-11-2024 13:45-0400 Body weight 91.62 kg MD Shira Sadler Work Phone: [facility] 02-11-2024 13:45-0400 Diastolic blood pressure 81 mm[Hg] MD Shira Sadler Work Phone: [facility] 02-11-2024 13:45-0400 Heart rate 58 /min MD Shira Sadler Work Phone: [facility] 02-11-2024 13:45-0400 Systolic blood pressure 177 mm[Hg] MD Shira Sadler Work Phone: [facility] 02-08-2024 06:43-0400 Body height 175.26 cm MD Shira Sadler Work Phone: [facility] 02-08-2024 06:43-0400 Body weight 86.18 kg MD Shira Sadler Work Phone: [facility] 02-07-2024 09:41-0400 Body height 167.64 cm MD Shira Sadler Work Phone: [facility] 02-07-2024 09:41-0400 Body mass index (BMI) [Ratio] 32.7 kg/m2 MD Shira Sadler Work Phone: [facility] 02-07-2024 09:41-0400 Body weight 92 kg MD Shira Sadler Work Phone: [facility] 01-17-2024 09:53-0400 Body weight 92.07 kg MD Shira Sadler Work Phone: [facility] 12-20-2023 11:37-0400 Body height 167.64 cm MD Shira Sadler Work Phone: [facility] 12-20-2023 11:37-0400 Body mass index (BMI) [Ratio] 32.3 kg/m2 MD Shira Sadler Work Phone: [facility] 12-20-2023 11:37-0400 Body weight 90.71 kg MD Shira Sadler Work Phone: [facility] 12-11-2023 09:33-0400 Body height 167.64 cm MD Shira Sadler Work Phone: [facility] 12-11-2023 09:33-0400 Body mass index (BMI) [Ratio] 32.3 kg/m2 MD Shira Sadler Work Phone: [facility] 12-11-2023 09:33-0400 Body weight 90.71 kg MD Shira Sadler Work Phone: [facility] 12-11-2023 09:33-0400 Diastolic blood pressure 93 mm[Hg] MD Shira Sadler Work Phone: [facility] 12-11-2023 09:33-0400 Heart rate 61 /min MD Shira Sadler Work Phone: [facility] 12-11-2023 09:33-0400 Systolic blood pressure 145 mm[Hg] MD Shira Sadler Work Phone: [facility] 11-13-2023 09:39-0400 Body height 167.64 cm MD Shira Sadler Work Phone: [facility] 11-13-2023 09:39-0400 Body mass index (BMI) [Ratio] 32.1 kg/m2 MD Shira Sadler Work Phone: [facility] 11-13-2023 09:39-0400 Body weight 90.26 kg MD Shira Sadler Work Phone: [facility] 11-12-2023 07:25-0400 Body height 167.64 cm MD Shira Sadler Work Phone: [facility] 11-12-2023 07:25-0400 Body weight 86.18 kg MD Shira Sadler Work Phone: [facility] 09-26-2023 11:17-0400 Body height 167.64 cm MD Shira Sadler Work Phone: [facility] 09-26-2023 10:56-0400 Body height 167.64 cm MD Shira Sadler Work Phone: [facility] 09-26-2023 10:56-0400 Body mass index (BMI) [Ratio] 31.4 kg/m2 MD Shira Sadler Work Phone: [facility] 09-26-2023 10:56-0400 Body weight 88.45 kg MD Shira Sadler Work Phone: [facility] 08-13-2023 11:40-0500 Diastolic blood pressure 68 mm[Hg] MD Shira Sadler Work Phone: [facility] 08-13-2023 11:40-0500 Heart rate 54 /min MD Shira Sadler Work Phone: [facility] 08-13-2023 11:40-0500 Respiratory rate 16 /min MD Shira Sadler Work Phone: [facility] 08-13-2023 11:40-0500 SaO2% (BldA) [Mass fraction] 100 % MD Shira Sadler Work Phone: [facility] 08-13-2023 11:40-0500 Systolic blood pressure 145 mm[Hg] MD Shira Sadler Work Phone: [facility] 08-13-2023 10:39-0500 Body height 167.64 cm MD Shira Sadler Work Phone: [facility] 08-13-2023 10:39-0500 Body temperature 98.5 [degF] MD Shira Sadler Work Phone: [facility] 08-13-2023 10:39-0500 Body weight 88.45 kg MD Shira Sadler Work Phone: [facility] 07-12-2023 10:00-0500 Body height 170.18 cm MD Shira Sadler Work Phone: [facility] 07-12-2023 10:00-0500 Body weight 89.9 kg MD Shira Sadler Work Phone: [facility] 07-12-2023 10:00-0500 Diastolic blood pressure 89 mm[Hg] MD Shira Sadler Work Phone: [facility] 07-12-2023 10:00-0500 Systolic blood pressure 141 mm[Hg] MD Shira Sadler Work Phone: [facility] 01-18-2023 13:15-0400 Body height 170.18 cm Shira Sadler Other [employer] Other 01-18-2023 13:15-0400 Body mass index (BMI) [Ratio] 29.75 kg/m2 Shira Sadler Other [employer] [facility] [employer] Other 01-18-2023 13:15-0400 Body weight 86.18 kg Shira Sadler Other [employer] Other 01-18-2023 13:15-0400 Diastolic blood pressure 87 mm[Hg] Shira Sadler Other [employer] Other 01-18-2023 13:15-0400 Systolic blood pressure 147 mm[Hg] Shira Sadler Other [employer] Other 11-01-2022 07:13-0400 Body height 170.18 cm MD Shira Sadler Work Phone: [facility] 11-01-2022 07:13-0400 Body weight 86.18 kg MD Shira Sdaler Work Phone: [facility] 12-05-2021 11:00-0400 Body height 170.18 cm John Nath Other [employer] Other 12-05-2021 11:00-0400 Body mass index (BMI) [Ratio] 29.13 kg/m2 John [employer] Other [employer] Other 12-05-2021 11:00-0400 Body weight 84.37 kg John Ntah Other [employer] Other 11-16-2021 11:45-0400 Body height 170.18 cm John Nath Other [employer] Other 11-16-2021 11:45-0400 Body mass index (BMI) [Ratio] 29.44 kg/m2 John Nath Other [employer] Other 11-16-2021 11:45-0400 Body weight 85.28 kg John Nath Other [facility] [employer] Other 11-04-2021 07:54-0400 Body height 170.18 cm MD Shira Sadler Work Phone: [facility] 11-04-2021 07:54-0400 Body weight 87.08 kg MD Shira Sadler Work Phone: [facility] Encounters Encounter Date Encounter Type Care Provider Facility Start: 02-21-2024 End: 02-21-2024 ambulatory MD Shira Sadler Work Phone: [facility] Work Phone: Start: 02-21-2024 End: 02-21-2024 Patient encounter procedure MD Shira Sadler Work Phone: [facility] Work Phone: Start: 02-11-2024 End: 02-11-2024 Patient encounter procedure MD Shira Sadler Work Phone: [facility] Work Phone: Start: 02-08-2024 End: 02-08-2024 Patient encounter procedure MD Shira Sadler Work Phone: [facility] [place] Work Phone: Start: 02-08-2024 End: 02-08-2024 ambulatory MD Shira Sadler Work Phone: [facility] Work Phone: Start: 02-07-2024 End: 02-07-2024 ambulatory MD Shira Sadler Work Phone: [facility] Work Phone: Start: 02-07-2024 End: 02-07-2024 Patient encounter procedure MD Shira Sadler Work Phone: [facility] Work Phone: Start: 01-17-2024 End: 01-17-2024 ambulatory MD Shira Sadler Work Phone: [facility] Work Phone: Start: 01-17-2024 End: 01-17-2024 Patient encounter procedure MD Shira Sadler Work Phone: [facility] Work Phone: Start: 12-20-2023 End: 12-20-2023 ambulatory MD Shira Sadler Work Phone: [facility] Work Phone: Start: 12-20-2023 End: 12-20-2023 Patient encounter procedure MD Shira Sadler Work Phone: [facility] Work Phone: Start: 12-13-2023 End: 12-13-2023 ambulatory MARIANNA TORRES Not Available Start: 12-11-2023 End: 12-11-2023 ambulatory MD Shira Sadler Work Phone: [facility] Work Phone: Start: 12-11-2023 End: 12-11-2023 Patient encounter procedure MD Shira Sadler Work Phone: [facility] Gastroenterology Work Phone: Start: 11-13-2023 End: 11-13-2023 ambulatory MD Shira Sadler Work Phone: [facility] Work Phone: Start: 11-13-2023 End: 11-13-2023 Patient encounter procedure MD Shira Sadler Work Phone: [facility] Work Phone: Start: 11-12-2023 End: 11-12-2023 Patient encounter procedure MD Shira Sadler Work Phone: [facility] [place] Work Phone: Start: 11-12-2023 End: 11-12-2023 ambulatory MD Shira Sadler Work Phone: [facility] Work Phone: Start: 10-02-2023 Non-patient / Non-visit MD Shira Sadler Work Phone: [facility] Work Phone: Start: 10-01-2023 End: 10-01-2023 Patient encounter procedure MD Shira Sadler Work Phone: [facility] [place] Work Phone: Start: 10-01-2023 End: 10-01-2023 ambulatory MD Shira Sadler Work Phone: [facility] Work Phone: Start: 09-26-2023 End: 09-26-2023 ambulatory MD Shira Sadler Work Phone: [facility] Work Phone: Start: 09-26-2023 End: 09-26-2023 Patient encounter procedure MD Shira Sadler Work Phone: [facility] Gastroenterology Work Phone: Start: 08-13-2023 Non-patient / Non-visit MD Shira Sadler Work Phone: [facility] Work Phone: Start: 08-13-2023 End: 08-13-2023 Admission to same day surgery center MD Shira Sadler Work Phone: [facility] Work Phone: Start: 08-13-2023 End: 08-13-2023 ambulatory MD Shira Sadler Work Phone: [facility] Work Phone: Start: 07-17-2023 End: 07-17-2023 ambulatory Rigo Chance Other [employer] Other Start: 07-17-2023 Telephone encounter Rigo Chance [facility] [employer] Start: 07-12-2023 End: 07-12-2023 Patient encounter procedure MD Shira Sadler Work Phone: [facility]- Start: 05-10-2023 End: 05-10-2023 Patient encounter procedure MD Shira Sadler Work Phone: [facility] [address] Work Phone: Start: 05-10-2023 End: 05-10-2023 ambulatory MD Shira Sadler Work Phone: [facility] Work Phone: Start: 04-24-2023 End: 04-24-2023 ambulatory Shira Sadler Other [employer] Other Start: 04-24-2023 Telephone encounter Shira Sadler [facility] Start: 03-02-2023 End: 03-02-2023 ambulatory Shira Sadler Other [employer] Other Start: 03-02-2023 Telephone encounter Shira Sadler [facility] Start: 02-07-2023 End: 02-07-2023 ambulatory Shira Sadler Other [employer] Other Start: 02-07-2023 Telephone encounter Shira Sadler [facility] Start: 01-18-2023 End: 01-18-2023 ambulatory Shira Sadler Other [employer] Other Start: 01-18-2023 Office outpatient visit 25 minutes Shira Sadler [facility] Start: 11-01-2022 End: 11-01-2022 ambulatory MD Shira Sadler Work Phone: [facility] Work Phone: Start: 11-01-2022 End: 11-01-2022 Patient encounter procedure MD Shira Sadler Work Phone: [facility] [place] Work Phone: Start: 10-16-2022 End: 10-17-[address] SHIRA SADLER Facility: Start: 10-06-2022 End: 10-06-2022 ambulatory Shira Sadler Other [employer] Other Start: 10-06-2022 Telephone encounter Shira Sadler [facility] Start: 12-05-2021 End: 12-05-2021 ambulatory John Nath Other [employer] Other Start: 12-05-2021 Office outpatient visit 15 minutes John Nath [facility] Start: 12-03-2021 End: 12-03-2021 Patient encounter procedure MD Shira Sadler Work Phone: [facility] Start: 11-16-2021 End: 11-16-2021 ambulatory John Nath Other [employer] Other Start: 11-16-2021 Office outpatient visit 15 minutes John Nath [facility] Start: 11-04-2021 End: 11-04-2021 Patient encounter procedure MD Shira Sadler Work Phone: [facility] Start: 04-02-2018 Patient encounter Juan Miguel Palacios ity:[id number] Start: 04-02-2018 End: 04-03-2018 Patient encounter Juan Miguel Campbell Facility:[id number] Procedures Date Procedure Procedure Detail Performing [...] Activity Detail Author Start: 02-11-2024 Patient referral [facility] Work Phone: Start: 11-13-2023 Patient referral [facility] Work Phone: Start: 08-13-2023 [facility] MR Lumbar spine WO a nd W contrast IV [facility] Patient Education Hemorrhoids (DC) [facility] Work Phone: Patient referral [facility] Work Phone: XR Lumbar spine 4 Views [facility] Immunizations Immunization Date Immunization Notes Care Provider Avinash ortega NEGATED: Highlighted row has not occurred!04-16-2019 influenza, high dose seasonal, preservative-free Patient Objection John Nath Other [employer] Other NEGATED: Highlighted row has not occurred!03-24-2019 influenza, high dose seasonal, preservative-free Patient Objection John Nath Other [employer] Other Payers Date Payer Category Payer Self-pay [id number] 2018 Worker's Compensation [id number] 1965 Unknown [id number] 2.16.84 [id number] 1965 Unknown [id number] 2.16.84 [id number] 1965 Unknown [id number] 2.16.84 [id number] 1960 Unknown [id number] Unknown [id number] 2.16.8 [id number] Unknown [id number] 2.16.8 [id number] Unknown [id number] 2.16.8 [id number] Unknown [id number] 2.16.8 [id number] Unknown [id number] 2.16.8 [id number] Social History Date Type Detail Facility Tobacco smoking status NHIS Unknown if ever smoked [employer] Other Start: 1965 Sex Assigned At Female F [facility] Sex Assigned At Sex Assigned At Bir th [employer] Other Start: 08-13-2023 End: 08-13-2023 Tobacco smoking status NHIS Never smoked tobacco (finding) [facility] Goals Date Patient Goal Desired Activity /State Clinical Notes 11-16-2021 to 12-11-2023 Note Date & Type Note Facility 12-11-2023 Evaluation note Authored December 11, 2023 9:49 am Abdominal cramping, abdomina l pain, 1-2 weekly bowel movements, patient negative for rectal bleeding [facility] Work Phone: 1(829) 446-958702-19-2024 [facility]* Encounter Date Diagnosis Assessment Notes [...] [place]. Recheck w MRI in September 2023. [employer] Other 04-14-2023 Evaluation note* Encounter Date Diagnosis Assessment Notes Treatment Notes Treatment Clinical Notes Sep, Screening mammogram for breast cancer (ICD-10 - Z12.31) [facility] Other 06-13-2022 Evaluation note* Encounter Date Diagnosis [...] Torres neurology which I think is appropriate. [facility] Other 05-25-2022 Evaluation note* Encounter Date Diagnosis [...] not have meningiomas in her cervical spine. [employer] Other evaluation noteNo assessment information available [facility] Work Phone: Evaluation noteNo InformationNort [employer] Other Evaluation note* Diagnosis Onset Date Resolution Status Constipation acute Hemorrhoids acute [facility] Work Phone: Evaluation note* Diagnosis Onset Date Resolution Status Constipation acute Hemorrhoids acute Irritable bowel syndrome with constipation acute [facility] Work Phone: Evaluation note* Diagnosis Onset Date Resolution Status Constipation acute Hemorrhoids acute Irritable bowel syndrome with constipation acute Meningioma acute [facility] Work Phone: Evaluation note* Diagnosis Onset Date Resolution Status Constipation acute Hemorrhoids acute Irritable bowel syndrome with constipation acute Carpal tunnel syndrome, bilateral acute Meningioma acute Irritable bowel syndrome with constipation acute [facility] Work Phone: History and physical note Author Rigo Chance [facility] August 13, 2023 10:42am Note Date/Time August 13, 2023 10:42am [facility] [address] [place] [address] Gastroenterology H&P Signed Patient: Melodie Corbin MR#: [id number] [birth year] : 1965 Acct:[id number] Age/Sex: 58 / F Adm Date: 4 Loc: Room: Type: [facility] Attending Dr: Rigo Chance MD [...] signed by Rigo Chance MD> 08/13/23 1042 [facility] Work Phone: History general Narrative - Reported* Type Description Date Medical History Hearing loss, left Medical History Acute middle ear effusion, left Medical History hypertension Medical History GERD Medical History migraine headaches Surgical History appendectomy 1980 Surgical History tonsillectomy 1980 Surgical History discectomy 2000 Surgical History breast biopsies Surgical History cholecystectomy 2006 Hospitalization History see sx history [facility] Other History general Narrative - Reported* Type Description Date Medical History Hearing loss, left Medical History Acute middle ear effusion, left Medical History hypertension Medical History GERD Medical History migraine headaches Surgical History appendectomy 1981 Surgical History tonsillectomy 1980 Surgical History discectomy 2000 Surgical History breast biopsies Surgical History cholecystectomy 2006 Surgical History Back injections 05/2023 Hospitalization History see sx history [facility] Other Hospital Discharge instructionsAmbulatory Orders* Referral to Neurology Time Frame: 11/13/23, Location: None Selected [facility] Work Phone: Summary Purpose Family History [...] DATE CREATED AUTHOR AUTHOR'S ORGANIZ ATION 12/14/2023 [facility] EPIC DATE CREATED AUTHOR AUTHOR'S ORGANIZ ATION 02/10/2024 [facility] Care Teams (unrecognized sec tion [...] MD Primary Care Provider Active Gale Reyez APRN-CASINO H[employer]-C Attending Provider Active Team Status: Inactive Member [...] BE BASED ON THE PRIMARY CLINICAL RECORDS. [employer] [facility]. provides no warranty or guarantee of the accuracy or completeness of information in this document.
--- NOTE | 2024-05-09 09:04 | V.VEINS.HP ---
Varicose Veins Patient in today for follow up ultrasound post Varithena/microfoam chemical ablation right leg. Ariel Webb MD personally performed the services described in this documentation, as scribed by Elma Og RVT, RDMS in my presence and it is both accurate and complete. Elma Webb RVT, RDMS, am scribing for, and in the presence of, Dr. Ariel Mota and in the presence of the patient. thigh: bilateral, knee: bilateral, calf: bilateral, ankle: bilateral and [place]: bilateral aching, cramping, intermittent and tender 8 5 years Worsened in recent months: Yes standing and walking elevating extremities Reports fatigue, heaviness, limb pain and leg edema History of lower extremity trauma: No Superficial thrombophlebitis: No Family history of varicose veins: yes Has patient had previous lower extremity venous surgery: No Patient has previously received the following treatment(s) for lower extremity varicose veins: Reports none Does patient have a history of : no Does patient intend to have future pregnancies: no Has patient had lower extremity venous scan with relux testing: Yes Support hose used: Yes Problems walking or doing physical activity: Yes How does it affect you: Unable to walk long distances, effects work requirements standing Do you walk much: Yes Do you stand much: Yes Review of Systems ROS Narrative Ariel Webb MD personally performed the services described in this documentation, as scribed by Elma Og RVT, RDMS in my presence and it is both accurate and complete. Elma Webb RVT, RDMS, am scribing for, and in the presence of, Dr. Ariel Mota and in the presence of the patient. Status of ROS 10 or more systems reviewed and unremarkable except as noted in history and below Cardiovascular Reports: edema and swelling of feet/ankles Musculoskeletal Reports: extremity pain, extremity swelling, joint pain, joint swelling and muscle cramps Integumentary/Breast Reports: itching, skin pain, skin tenderness and skin swelling [facility] Medical History (Updated 04/03/24 @ 07:54 by Annia Olson RN) Phlebitis and thrombophlebitis of superficial vessels of right lower extremity ?I80.01 - Phlebitis and thrombophlebitis of superficial vessels of right lower extremity (ICD-10) Phlebitis and thrombophlebitis of superficial vessels of left lower extremity ?I80.02 - Phlebitis and thrombophlebitis of superficial vessels of left lower extremity (ICD-10) FH: cholecystectomy ?Z83.79 - Family history of other diseases of the digestive system (ICD-10) Depression ?F32.A - Depression, unspecified (ICD-10) Hypercholesteremia ?E78.00 - Pure hypercholesterolemia, unspecified (ICD-10) Hypertension ?I10 - Essential (primary) hypertension (ICD-10) Pain due to varicose veins of both lower extremities ?I83.813 - Varicose veins of bilateral lower extremities with pain (ICD-10) Surgical History (Updated 04/18/24 @ 10:39 by Ricki Horowitz) S/P sclerotherapy of varicose veins ?Z98.890 - Other specified postprocedural states (ICD-10) ?Z86.79 - Personal history of other diseases of the circulatory system (ICD-10) Status post laser ablation of incompetent vein ?Z98.890 - Other specified postprocedural states (ICD-10) History of tonsillectomy ?Z90.89 - Acquired absence of other organs (ICD-10) History of appendectomy ?Z90.49 - Acquired absence of other specified parts of digestive tract (ICD-10) Family History (Updated 03/04/24 @ 08:30 by Annia Olson RN) Mother Family history of CHF (congestive heart failure) Family history of cancer Family history of hypertension Family history of myocardial infarction Family history of stroke Uncle Family history of CHF (congestive heart failure) Father Family history of cancer Family history of hypertension Sister Family history of diabetes mellitus Family history of hypertension Social History (Updated 03/04/24 @ 08:31 by Annia Olson RN) Within the past year, how often did you have a drink containing alcohol: never Score interpretation: A score less than 3 is consistent with normal alcohol consumption. Smoking status: Never smoker Non-prescribed substance use: former substance user Meds Home Medications and Allergies Home Medications ?Medication ?Instructions ?Recorded ?Confirmed ?Type duloxetine 60 mg capsule,delayed 60 mg PO DAILY 03/04/24 03/04/24 History release (Cymbalta) gabapentin 600 mg tablet 600 mg PO TID 03/04/24 03/04/24 History aruoxkhuausl-tgnzyso-fyrfq acid 1 tab PO DAILY 03/04/24 03/04/24 History 400 mcg-lutein 250 mcg chewable tablet (Centrum Silver) nortriptyline 10 mg capsule 10 mg PO DAILY 03/04/24 03/04/24 History (Pamelor) rosuvastatin 20 mg tablet 20 mg PO DAILY 03/04/24 03/04/24 History Allergies Allergy/AdvReac Type Severity Reaction Status Date / Time No Known Drug Allergies Allergy Unverified 03/04/24 08:34 Exam Narrative Exam Narrative: Ariel Webb MD personally performed the services described in this documentation, as scribed by Elma Og RVT, RDMS in my presence and it is both accurate and complete. Elma Webb RVT, RDMS, am scribing for, and in the presence of, Dr. Ariel Mota and in the presence of the patient. Constitutional Documenting provider has reviewed patient's vital signs: yes Common normals: oriented x3 Nutritional appearance: overweight Lymph Lymphatic: no lymphedema noted Cardio Peripheral pulses: posterior tibial pulses present and dorsalis pedis pulses present Extremity General: calf tenderness, edema and other findings Right lower extremity: lower leg Right lower leg: inspection and palpation Left lower extremity: lower leg Left lower leg: inspection and palpation Neuro Common normals: oriented x3 Results Imaging Venous US: Radiologist's impression: The ultrasound demonstrates 3-4 cm segment of DVT at mid PTV. Varithena induced thrombus visualized at mid/med calf and mid/med thigh. Assessment and Plan Assessment and Plan (1) Phlebitis and thrombophlebitis of superficial vessels of left lower extremity: Plan Patient in today for follow up ultrasound of lower extremity following treatment of Varithena/microfoam completed on 05/01/24. Dr. Mota recommends taking a low dose aspirin to treat her DVT. Ariel Webb MD personally performed the services described in this documentation, as scribed by Elma Og RVT, RDMS in my presence and it is both accurate and complete. Elma Webb RVT, RDMS, am scribing for, and in the presence of, Dr. Ariel Mota and in the presence of the patient.
--- NOTE | 2024-05-09 09:10 | W.VEIN ---
Discharge Plan Discharge Disposition: Home, Self-Care Outpatient Diagnostics: VC INJ Sclerosing SOLMULT Vein (Routine) Timeframe: 2 Weeks Facility: [facility] - Location: [facility] Ordered By: Ariel Mota Plan of Treatment: Sclerotherapy, patient may wait until after the holidays to treat. Print Language: Portuguese Discharge Date/Time: 05/09/24 09:14
== END 2024-05-09 09:14 | disposition home or self-care (01) ==
PROVIDERS: PCP Radiology Diagnostic Radiology; Visit Provider Radiology Diagnostic Radiology
DX: I80.01 Phlebitis and thrombophlebitis of superficial vessels of right lower extremity (principal)
CPT/HCPCS: 93971; G0463